=== PATIENT | female | born 1970 | race Caucasian/White ===

== ENCOUNTER 2022-07-05 12:32 | Emergency (ER) | payer OTHER, SELFPAY ==
[2022-07-05 12:40] VITALS: BP 126/83; PULSE 70; RESP 18; TEMP 36.4; O2SAT 99; BMI 30.7
[2022-07-05 15:19] VITALS: BP 116/83; PULSE 65; RESP 16; O2SAT 100
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
--- OUTSIDE RECORDS SUMMARY | 2022-07-05 15:52 | XMS_ITS | Encounter Summary ---
:1970 Author Organization [employer] Address [address], [place] [address] Care Team Providers Name Role Phone Pcp, Pt Declines MD Primary Care Provider Reason for Visit Procedure/Equipment (Routine) - Incomplete Specialty Diagnoses / Procedures Referred By Contact Refer red To Contact Diagnoses Adhesive capsulitis of left shoulder Lan Rojas PA-C Procedures XR Shoulder Lt 2+ Views [address] [facility] [place] [address] Referral ID Status Reason Start Date Expiration Date Visits V isits Requested Authorized [id number] Incomplete 03/02/2018 06/01/2019 1 1 Encounter Details Date Type Department Care Team Description 03/02/2018 Imaging [facility] Lan Rojas PA-C Chronic left shoulder [address] [facility] [facility] [address] [place] [address] [place] [address] [phone] (Wo rk) Social History Tobacco Use Types Packs/Day Years Used Date Smoking Tobacco: Former Smokeless Tobacco: Never Comments: Quit smokin yrs Alcohol Use Standard Drinks/Week Comments Yes 0 (1 standard drink = 0.6 oz pure alcoho l) social Sex Assigned at Date Recorded Not on file documented as of this encounter Plan of Treatment Not on filedocumented as of this encounter Procedures Procedure Name Priority Date/Time Associated Diagnosis Comme nts XR SHOULDER LT 2+ Routine 03/02/2018 10:26 AM Chronic left Res ults for this VIEWS CDT shoulder pain procedure are in the results section. documented in this encounter Results XR Shoulder Lt 2+ Views (03/02/2018 10:26 AM CDT) Anatomical Region Laterality Modality Upper Extremity, Shoulder Digital Radiog parvez Specimen (Source) Anatomical Collection Method Collection Time Re ceived Time Location / / Volume Laterality 03/02/2018 10:18 AM CDT Narrative 03/02/2018 11:30 AM CDT COMPARISON: ??None. FINDINGS: ??Bony structures appear unrem arkable. ??Joint spaces are within normal limits. ??There is no dislocation or significant degenerative change. Probable bone islands in the glenoid and humeral head. Procedure Note Tavo Agee MD - 03/02/2018Forma tting of this note might be different from the original. COMPARISON: None. FINDINGS: Bony structures appear unremar kable. Joint spaces are within normal limits. There is no dislocation or significant degenerative change. Probable bone islands in the glenoid and humeral head. Lan REAGAN GD documented in this encounter Visit Diagnoses Diagnosis Chronic left shoulder pain Pain in joint, shoulder region documented in this encounter Care Teams Financial Reporting Advisor Relationship Specialty Start Date End Date Pcp, Praveen Sigala MD PCP - General 04/15/14 [place] [address] documented as of this encounter
--- OUTSIDE RECORDS SUMMARY | 2022-07-05 15:52 | XMS_ITS | Encounter Summary ---
:1970 Author Organization [facility] Address [address] [address] Care Team Providers Name Role Phone PcpPraveen MD Primary Care Provider Encounter Details Date Type Department Care Team Description 01/21/2021 Immunization [place] Cov[facility] Encounter for Vaccine Program administration of vaccine [id number] [address] (Primary Dx) [place], [place] [address] Social History Tobacco Use Types Packs/Day Years Used Date Smoking Tobacco: Former Smokeless Tobacco: Never Comments: Quit smokin yrs Alcohol Use Standard Drinks/Week Comments Yes 0 (1 standard drink = 0.6 oz pure alcoho l) social Sex Assigned at Date Recorded Not on file documented as of this encounter Plan of Treatment Not on filedocumented as of this encounter Visit Diagnoses Diagnosis Encounter for administration of vaccine - Primary documented in this encounter Care Teams Prototype Fabricator Relationship Specialty Start Date End Date Praveen Isabel MD PCP - General 04/15/14 [place] [address] documented as of this encounter
--- OUTSIDE RECORDS SUMMARY | 2022-07-05 15:52 | XMS_ITS | Encounter Summary ---
:1970 Author Organization [employer] Address [address] [address] Care Team Providers Name Role Phone Pcp, Pt Declines MD Primary Care Provider Reason for Referral Procedure/Equipment (Routine) - Incomplete Specialty Diagnoses / Procedures Referred By Contact Refer red To Contact Diagnoses Adhesive capsulitis of left shoulder Lan Rojas PA-C Procedures [place] Injection Shoulder Lt [address] [facility] [address] [place] [address] Referral ID Status Reason Start Date Expiration Date Visits V isits Requested Authorized [id number] Incomplete 03/02/2018 06/01/2019 1 1 herapies (Routine) - Closed Specialty Diagnoses / Procedures Referred By Contact Refer red To Contact Diagnoses Adhesive capsulitis of left shoulder Lan Rojas PA-C [address] [facility] [address] [place] [address] Referral ID Status Reason Start Date Expiration Date Visits Requ ested Visits Authorized [id number] Closed 03/02/2018 05/01/2018 1 1 Scheduling Instructions Your provider has recommended an appoint ment with [facility]. You may call [phone] to schedule your appoi ntment. If you do not schedule an appointment within the next 1 to 3 business days, we will call you to help arrange your appointment. We suggest you call your he [employer] company about your coverage and benefits for this appointment. Procedure/Equipment (Routine) - Incomplete Specialty Diagnoses / Procedures Referred By Contact Refer red To Contact Diagnoses Adhesive capsulitis of left shoulder Lan Rojas PA-C Procedures XR Shoulder Lt 2+ Views [address] [facility] [place] [address] Referral ID Status Reason Start Date Expiration Date Visits V isits Requested Authorized [id number] Incomplete 03/02/2018 06/01/2019 1 1 Reason for Visit Reason Comments SHOULDER PAIN L shoulder pain Encounter Details Date Type Department Care Team Description 03/02/2018 Office Visit [facility] Rojas, Adhesive capsulitis [facility] of left shoulder [address] [facility] (Primary Dx) [place] [address] [address] [place] [phone] (Wo rk) Social History Tobacco Use Types Packs/Day Years Used Date Smoking Tobacco: Former Smokeless Tobacco: Never Comments: Quit smokin yrs Alcohol Use Standard Drinks/Week Comments Yes 0 (1 standard drink = 0.6 oz pure alcoho l) social Sex Assigned at Date Recorded Not on file documented as of this encounter Last Filed Vital Signs Vital Sign Reading Time Taken Comments Blood Pressure - - Pulse - - Temperature - - Respiratory Rate - - Oxygen Saturation - - Inhaled Oxygen Concentration - - Weight 77.1 kg (170 lb) 03/02/2018 9:53 AM CDT Height 157.5 cm (5' 2) 03/02/2018 9:53 AM CDT Body Mass Index 31.09 03/02/2018 9:53 AM CDT documented in this encounter Progress Notes Lan Rojas PA-C - 03/02/2018 9:30 AM CDT [facility] [place] Consultation 03/02/2018 Chief Complaint: Left Shoulder Pain History of Present Illness: Mamta Pickett is a right hand dominant 47 y.o. female with a history of thyroid condition who presents for evaluation of left shoulder pain. The patient notes her pain began without precipitating injury or trauma over nine months ago. Reports the severity of pain has gradually worsened approximately the two months ago. No history of surgery or injury. Since this time, she localizes her pain over the superolateral aspect of left shoulder. Describes intermittent numbness along dorsum of forearm with extension into all fingers except the thumb. She has difficulty with gripping motions secondary topain and weakness. Internal rotation, overhead motions, daily cares and abduction aggravates her pain. Range of motion causes clicking within shoulder. Sleep is disrupted due to pain. She has not previously attempted any treatment. Concerned since the pain limits her ability to partake in activities of daily living. No other concerns were voiced. Allergies: Review of patient's allergies indicates no known allergies. Current Medications: The patient has a current medication list which includes the following prescription(s): Celexa. Past Medical History: The patient has a past medical history of Thyroid condition, Anxiety and Depression. Past Surgical History: The patient has a past surgical history that includes Spine surgery (2009) and Foot surgery. Family History: The patient's family history includes breast cancer in her mother and grandparents. 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 with three children. Nonsmoker. No history of substance/drug use. Drinks alcohol occasionally. Endorses exercise daily by walking. Always wears a seatbelt. The General Medical History Form dated 03/02/2018 was updated and reviewed with the patient; this is located in [facility] in [facility]. Review of Systems: Positive for left shoulder pain, sinus infections, anxiety and chronic low back pain. No history of other heart, lung, liver, GI, or renal diseases, cancers, diabetes mellitus, or arthritis. Physical Exam: General: The patient is in no acute distress. Neuro: Answers questions appropriately. Alert and oriented x 3. Skin: Skin is cool to touch without erythema, ecchymosis, or lesions. Left Shoulder: Tight posterior capsule. Forward flexion to 140 degrees. Tight external rotation. Pain is not noted with exercise isolating supra and infraspinatus. Negative Spurling's test. Rotator cuff intact. Full range of motion of cervical spine, elbow, wrist, and hand. Neurovascularly intact dista lly. Good capillary refill. 2+ radial pulse. This is compared bilaterally. Imaging: Radiographs of the left shoulder - 2+ views (03/02/18): No evidence of obvious acute bony abnormalities. I ordered and independently reviewed and interpreted the imaging studies above; the results were discussed with the patient. Assessment: Diagnosis and Associated Orders ICD-10-CM 1. Adhesive capsulitis of left shoulder M75.02 XR Shoulder Lt 2+ Views Plan: Educated the patient regarding her condition and management. I discussed with the patient, in detail, the different treatment options available to them including conservative management (rest, ice, oral pain medication, and activity modification) and formal physical therapy per adhesive capsulitis protocol. Given her sleep is significantly disrupted, recommended the patient schedule a fluoroscopically-guided left shoulder glenohumeral corticosteroid injection. Risks and benefits for each treatment option were discussed. At this time, the patient elects to proceed with this plan. Provided patient with a referral for formal physical therapy. She will follow-up in two month for recheck. All questionswere answered. Scribe Disclosure: IMayi, am serving as a scribe to document services personally performed by Lan Rojas PA-C at this visit, based upon the provider's statements to me. All documentation has been reviewed by the aforementioned provider prior to being entered into the official medical record. Portions of this medical record were completed by a scribe. UPON MY REVIEW AND AUTHENTICATION BY ELECTRONIC SIGNATURE, this confirms (a) I performed the applicable clinical services, and (b) the recordis accurate. Lan Rojas PA-C documented in this encounter Plan of Treatment Scheduled Referrals Name Type Priority Associated Diagnoses Order S chedule Physical Therapy Referral Routine Adhesive capsulitis of l eft Ordered: 03/02/2018 shoulder documented as of this encounter Results FL Injection Shoulder Lt (03/15/2018 11:20 AM CDT) Anatomical Region Laterality Modality Upper Extremity, Shoulder Radiographic I maging Specimen (Source) Anatomical Collection Method Collection Time Re ceived Time Location / / Volume Laterality 03/15/2018 11:06 AM CDT Narrative 03/15/2018 11:21 AM CDT FINDINGS: The procedure, goals, risks and benefits of the procedure were discussed with the patient, who gave full written and verbal consent to proceed. The location of the procedure was confirmed, the skin initialed, and pause for cause per formed. Using sterile technique, local anesthesia and fluoroscopic guidance a 22 gauge needle was advanced into the left glenohumeral joint. Intraarticular locati on of the needle tip was confirmed with the injection of 1 mL of Isovue. Subsequently, 40 mg of Kenalog, and 5 mL ropivacaine 0.5% was administered without complication. The patient rated their pain as a 5/10 p rior to the injection, and 1/10 immediately following the injection. Procedure Note Lima Bowie PA-C - 03/15/2018Fo rmatting of this note might be different from the original. FINDINGS: The procedure, goals, risks an d benefits of the procedure were discussed with the patient, who gave full written and verbal consent to proceed. The location of the procedure was confirmed, the skin initialed, and pause for cause performed. Using juan rile technique, local anesthesia and fluoroscopic guidance a 22 gauge needle was advanced into the left glenohumeral joint. Intraarticular location of the needle tip was confirmed with the injection of 1 mL of Isovue. Subsequently, 40 mg of Kenalog, and 5 mL ropivacaine 0.5% was administered without complication. The patient rated their pain as a 5/10 p rior to the injection, and 1/10 immediately following the injection. Lan Rojas PA-C RAD FL XR Shoulder Lt 2+ Views (03/02/2018 10:26 [...] in the glenoid and humeral head. Lan AGUIRRE documented in this encounter Visit Diagnoses Diagnosis Adhesive capsulitis of left shoulder - P rimary Adhesive capsulitis of shoulder Chronic left shoulder pain Pain in joint, shoulder region Adhesive capsulitis of left shoulder Adhesive capsulitis of shoulder documented in this encounter Care Teams Waistband Setter Lockstitch Relationship Specialty Start Date End Date Pcp, Praveen Sigala MD PCP - General 04/15/14 [place] [address] documented as of this encounter
--- OUTSIDE RECORDS SUMMARY | 2022-07-05 15:52 | XMS_ITS | Clinical Summary ---
:[address] [facility] Address [address], [place] [address] Care Team Providers Name Role Phone Pcp, Pt Declines MD Primary Care Provider Source Comments You are receiving this document as you are listed as the primary care provider,follow-up provider, or the patient has been referred to you for consultation.This is in compliance with the Medicare and Medicaid EHR Incentive Program,which states Providers who transition their patient to another setting of careor provider of care or refers their patient to another provider of care shouldprovide summarycare record for each transition of care or referral. [facility] Allergies No known active allergies Medications Medication Sig Dispensed Refills Start Date End Date Status citalopram (AKA CELEXA) Take 10 mg by 0 04/16/2014 Active 10 MG tablet mouth daily (every 24 hours). loratadine (AKA CLARITIN) Take 10 mg by 0 06/11/2014 Active 10 MG tablet mouth daily (every 24 hours). cholecalciferol (VITAMIN Take 1,000 0 06/26/2014 Active D3) 1000 UNITS tablet Units by mouth daily (every 24 hours). ibuprofen (MOTRIN) 200 MG Take 200-400 mg 0 Active tablet by mouth every 4 hours as needed for Pain. Active Problems Problem Noted Date Hypothyroidism 07/03/2014 Resolved Problems Problem Noted Date Resolved Date Bronchitis 07/03/2014 01/01/2015 Immunizations Name Administration Dates Next Due Moderna (Spikevax) COVID-19, 12+ Yrs 01/21/2021, 12/24/2020 Social History Tobacco Use Types Packs/Day Years Used Date Smoking Tobacco: Former Smokeless Tobacco: Never Comments: Quit smokin yrs Alcohol Use Standard Drinks/Week Comments Yes 0 (1 standard drink = 0.6 oz pure alcoho l) social Sex Assigned at Date Recorded Not on file Last Filed Vital Signs Vital Sign Reading Time Taken Comments Blood Pressure - - Pulse - - Temperature - - Respiratory Rate - - Oxygen Saturation - - Inhaled Oxygen Concentration - - Weight 77.1 kg (170 lb) 03/02/2018 9:53 AM CDT Height 157.5 cm (5' 2) 03/02/2018 9:53 AM CDT Body Mass Index 31.09 03/02/2018 9:53 AM CDT Plan of Treatment Health Maintenance Due Date Last Done Comments Colon Cancer Screening Plan 1970 Due Hep C Screening (Preventive 1970 Services) HepB (1) 1970 HIV Screening (Preventive 1984 Services) Adult Preventive Visit 1986 Cervical Cancer Screening Due 07/12/2013 07/11/2013 Cholesterol 2013 Mammogram 11/26/2014 11/26/2013 Zoster/Shingles (1 of 2) 2018 DTaP/Tdap/Td (2 - Tdap) 12/10/2018 12/10/2008 COVID-19 Vaccine (3 - Booster 03/18/2021 01/21/2021, for Moderna series) 12/24/2020 Influenza (#1) 2022 06/02/2016, 05/25/2012, 06/02/2011 HepA Aged Out No longer eligib le based on patient's age to complete this to pic Hib Aged Out No longer eligib le based on patient's age to complete this to pic IPV (Polio) Aged Out No longer eligib le based on patient's age to complete this to pic MCV4 Aged Out No longer eligib le based on patient's age to complete this to pic Pneumococcal Aged Out No longer eligib le based on patient's age to complete this to pic Insurance Payer Benefit Plan Subscriber ID Effective Phone Address Typ e / Group Dates [facility] [id number] Effective for C ommercial DENTAL PLAN FULLY all dates INSURED D[employer]AL [employer] SELF [id number] 2012-Prese Commercial INSURED nt [address] (Home) [phone] Violeta Godwin (Work) [id number] Mamta Pickett Personal/Family Self 1970 [address] (Home) [facility] [phone] Violeta GODWIN (Work) [id number] Mamta Pickett Personal/Family Self 1970 [address]) [phone] Violeta Godwin (Work) [id number] Mamta Pickett Personal/Family Self 1970 [address] ([address]) [address] [phone] Violeta Godwin (Work) [phone] Care Teams [employer] School Principal Relationship Specialty Start Date End Date Pcp, Praveen Sigala MD PCP - General 04/15/14 [place] [address]
--- OUTSIDE RECORDS SUMMARY | 2022-07-05 15:52 | XMS_ITS | Encounter Summary ---
:1970 Author Organization [facility] [facility] Address [address], [place] [address] Care Team Providers Name Role Phone Pcp, Pt Declines MD Primary Care Provider Reason for Visit Reason Comments Post Op Exam Encounter Details Date Type Department Care Team Description 08/07/2014 Office Visit [facility] Keven Roblero, Follow -up CENTER DPM examination, [address] [facility] [address] [place] [address] DR following unspecified [place], [place] [address] [place], [place] surgery (Primary Dx) [phone] (Wo rk) Social History Tobacco Use Types Packs/Day Years Used Date Smoking Tobacco: Never Assessed Sex Assigned at Date Recorded Not on file documented as of this encounter Patient Instructions Patient InstructionsAlexys Huynh MA - 08/07/2014 3:[address] Keven Roblero, DPM Podiatric Medicine & Windows Application PackagerLocker Room Attendant, [facility] Treating Inspector: Stephania De Souza Please call Stephania for all administrative questions at [phone] Nurses: Please contact [facility] Nurse Group for all medical questions at [phone] Medication Requests: Prescriptions are not filled on Weekends or on Weekdays after 3:00PM For all medication refills: Request a refill using [facility] [employer] or contact your Pharmacy Thank you for enrolling in MyGoodPoints. Please follow the instructions below to securely access your online medical record. MyGoodPoints allows you to send messages to your doctor, view your test results, renewyour prescriptions, schedule appointments, and more. How Do I Sign Up? 1. In your Internet browser, go to: [email or web address] 2. Click on the Enter Activation Code link under the New User? section. You will see the New Member Sign Up page. 3. Enter your MyGoodPoints Activation Code exactly as it appears below. You will not need to use this code after you???ve completed the sign-up process. If you do not sign up before the expiration date, youmust request a new code. MyGoodPoints Activation Code: [email or web address] Expires: 09/06/2014 3:14 PM 4. Enter your Date of (mm/dd/yyyy), Home Phone Number and Zip Code as indicated, then click Next. You will be taken to the next sign-up page 5. Create a MyGoodPoints ID. This will be your MyGoodPoints login ID and cannot be changed, so think of one that is secure and easy to remember. 6. Create a MyGoodPoints password. You can change your password at any time. 7. Enter your Security Question and Answer. This can be used at a later time if you forget your password. Click Next. 8. Enter your e-mail address. You will receive e-mail notification when new information is availablein MyGoodPoints. 9. Click Sign In. You can now view your medical record. Additional Information If you have questions, you can call [phone] to talk to our MyGoodPoints staff. Remember, MyGoodPoints is NOT to be used for urgent needs. For medical emergencies, dial 911. R REPAIRER documented in this encounter Progress Notes Keven Roblero DPM - 08/07/2014 9:05 PM CST Progress Notes signed by Keven Roblero DPM at 08/11/14 0801 Author: Keven Roblero DPM Service: (none) Author Type: Physician Filed: 08/11/14 0801 Note Time: 08/10/14 7391 Status: Signed Electronics Research Engineer: Keven Roblero DPM (Physician) NAME: SHEKHAR PICKETT MR#: [id number] CSN: [id number] AUTHENTICATING CLINICIAN: Keven Roblero DPM CONFIRM #: [id number] LOC: 711 CLINIC PROGRESS NOTE DATE OF VISIT: 08/07/2014 : 1970 SUBJECTIVE: This is a return clinic visit for this patient who presents today 6 weeks status post excision neuroma left foot. The patient states she is still getting some slight discomfort at the plantar aspect ofthe 3rd intermetatarsal space where the scar is. She also states she has some nerve irritation whereshe gets some numbness and tingling to her left great toe. The patient states that the dressing may have been too tight on her foot. She had irritation to the dorsal bony prominence and she points to her 5th metatarsal base. OBJECTIVE: On physical examination, there is a bit of paresthesia to the dorsum of the left hallux as well as at the 1st webspace. This along the course of the deep peroneal nerve or the innervation of this nerve. There was some discomfort with palpation over the dorsal exostosis 1st tarsometatarsal joint. Tinel's could not be elicited. There is some slight central scabbing of the scar to plantar of the 3rd intermetatarsal space of the left foot. No fluctuance or drainage. The patient does relate that this area did open a bit after surgery and was Steri- Stripped. Patient does also relate some irritation to the 3rd toe if she has been on her feet too much. ASSESSMENT: Six weeks status post excision of neuroma of the left foot, deep peroneal nerve irritation secondaryto dorsal exostosis left foot. PLAN: The patient is healing nicely regarding neuroma, that should continue to improvement and that littlebit of scabbing should certainly resolve itself in the short term. I discussed the nerve irritation of the deep peroneal nerve and this was related to the dorsal exostosis near the base of the 1st metatarsal and 2nd metatarsal as well as some compression from the dressing; this also should resolve with time. The patient may increase ambulatory activities as comfortable. She can do deep massage to herplantar scar as well. I will see the patient p.r.n. JOSIE:CAMILLA C: R:08/08/14 06:33 CONFIRM#:[id number] R REPAIRER documented in this encounter Plan of Treatment Not on filedocumented as of this encounter Visit Diagnoses Diagnosis Follow-up examination, following unspeci fied surgery - Primary documented in this encounter Care Teams Program Analyst Relationship Specialty Start Date End Date Pcp, Praveen Sigala MD PCP - General 04/15/14 [place] [address] documented as of this encounter
--- OUTSIDE RECORDS SUMMARY | 2022-07-05 15:52 | XMS_ITS | Encounter Summary ---
:1970 Author Organization [employer] Address [address], [place] [address] Care Team Providers Name Role Phone PcpPraveen MD Primary Care Provider Reason for Visit Reason Comments Symptoms Encounter Details Date Type Department Care Team Description 06/30/2014 Telephone [facility] Keven Carey, DPVioleta Symptoms [address] [facility] [address] [place] [address] [place] [address] [phone] (Wo rk) Social History Tobacco Use Types Packs/Day Years Used Date Smoking Tobacco: Never Assessed Sex Assigned at Date Recorded Not on file documented as of this encounter Nursing Notes Essence Aguirre RN - 06/30/2014 3:06 PM CDT Patient is S/P Excision of neuroma 3rd IMS left foot on 06/26 she is calling to report she has had cold symptoms since surgery and it is getting worse, making it hard for her to breathe. She has no chest pain. She is calling to ask if she should be seen. Patient instructed to be seen by primary care. documented in this encounter Plan of Treatment Not on filedocumented as of this encounter Visit Diagnoses Not on filedocumented in this encounter Care Teams Welding Pantograph Machine Operator Relationship Specialty Start Date End Date Praveen Isabel MD PCP - General 04/15/14 [place] [address] documented as of this encounter
--- OUTSIDE RECORDS SUMMARY | 2022-07-05 15:52 | XMS_ITS | Encounter Summary ---
:1970 Author Organization [facility] [employer] Address [address], [place] [address] Care Team Providers Name Role Phone Pcp, Pt Declines MD Primary Care Provider Encounter Details Date Type Department Care Team Description 11/18/2019 chalo Dasilva [phone] Social History Tobacco Use Types Packs/Day Years Used Date Smoking Tobacco: Former Smokeless Tobacco: Never Comments: Quit smokin yrs Alcohol Use Standard Drinks/Week Comments Yes 0 (1 standard drink = 0.6 oz pure alcoho l) social Sex Assigned at Date Recorded Not on file documented as of this encounter Progress Notes FAMILY MEDICINECHALO PROVIDER - 11/23/2019 12:00 AM CDT chalo Addendum Treatment Plan Diagnosis Sinusitis with Ear Pain Visit Date November 18, 2019 Addendum Date November 23, 2019 Mamta Pickett Date of : 66 Provider Leslie Garcia, Nurse Practitioner Note From Provider Orlando Oleary, thank you for talking with me! Please review your updated treatment plan carefully and because you are sick and COVID-19 is in the community, you should follow CDC guidelines and remain in home isolation until 7 days have passed from the start of your symptoms AND you have not had a fever for at least 72 hours without fever reducing medicine AND your symptoms have improved. People that youhave been in close contact (including those in your home) should also isolate themselves for 14 dayseven if they don???t have symptoms. Don't forget we're here 27/03, Request a Call Back if you need it. Take care, Leslie Treatment Plan Since you have a bacterial infection, let???s try an antibiotic. I???ve also included a prescriptionnasal steroid to reduce your pain and inflammation. The antibiotic and nasal steroid will work effectively on both your sinus and ear symptoms. I sent your prescriptions to [facility]. I???ve also listed a few self-care tips to reduce inflammation and soothe your symptoms while the antibiotickills the bacteria. If your symptoms don???t improve after 4 days, or if you have questions, please select Help to Request a Call Back and we???ll adjust your treatment for free. Order(s) amoxicillin 500 mg capsule Take 2 capsule three times a day as directed for 7 days Note: Refills: None fluticasone propionate 50 mcg/actuation spray,suspension [place] 2 spray into both nostrils once a day as directed for 30 days Note: Refills: 2 Sent To: [facility] [address] [facility] [address] [place] [address] Treatment Plan Self Care Tip Topics Ease Sinus Inflammation and Ear Pain with Nasal Steroids Inflammation Relief with Ibuprofen What to Expect Our goal is to treat the infection and reduce inflammation in order to promote drainage to ease yoursinus and ear pain. Reducing inflammation will make you feel better quickly. If you follow the recommendations I made in the Treatment section, your symptoms should begin to improve in 4 days of following this treatment plan. If your symptoms haven???t improved after 4 days, select Help to Request a Call Back and we???ll call you back in about an hour to adjust your treatment for free. What to Watch Out For Give us a call immediately if you experience: ??? Vision changes ??? Redness and swelling of the eyes or face ??? Increasing congestion ??? Worsening pain ??? High fevers ??? Persistent or worsening ear pain ??? Bloody or foul smelling ear drainage ??? Skull pain behind your ear ??? Hearing loss ??? Difficulty swallowing My Conditions, Orders, Allergies as of November 23, 2019 Standard condition list Anxiety Current orders fluticasone propionate (fluticasone propionate) amoxicillin (amoxicillin) ofloxacin (ofloxacin) Flonase Allergy Relief (fluticasone propionate) Celexa (citalopram) Allergies No Known Allergies [facility] by [employer] We are an online clinic open 27/03. If you have any questions or comments about this visit, please call or email [email or web address] Electronically signed by Interface, [facility] Notes at 11/23/2019 10:01 AM CDT FAMILY MEDICINECHALO PROVIDER - 11/18/2019 12:00 AM CDT chalo Treatment Plan Diagnosis Swimmer's Ear Visit Date November 18, 2019 Mamtaan Pickett Date of : 66 Provider Janee Solorio, Nurse Practitioner Note From Provider Orlando Oleary,Hope your symptoms resolve quickly for you! Take good care, Sherrell Treatment Plan Since swimmer's ear is a bacterial infection, let's try some antibiotic drops. I sent a prescriptionto [facility]. I've also listed a few of the best ways to soothe your discomfort and some additional self-care tips to get you on the road to feeling better. If your symptoms don't improve after 3 days, or if you have questions, please use the Request a Call Back button and we'll adjust your treatment for free. Order(s) ofloxacin 0.3% drops Instill 10 drop opht once a day as directed for 7 days Note: Instill antibiotic eye drops into affected ear. Refills: None Sent To: [facility] [address] [facility] [address] [place] [address] Treatment Plan Self Care Tip Topics No Swimming Keep Ear Dry While Bathing Ear Devices Topical Antibiotic Pain Relief with Motrin Elevate Your Head Warm Packs What to Expect If you follow the recommendations I made on the Treatment tab, your symptoms should improve in about3 days. If your symptoms don???t improve after 3 days, or if you have questions, please use the Request a Call Back button and we???ll adjust your treatment for free. What to Watch Out For Give us a call if you experience: ??? Loss of hearing ??? Swelling around the outside of the affected ear ??? Increasing drainage ??? Fevers My Conditions, Orders, Allergies as of November 18, 2019 Standard condition list Anxiety Current orders ofloxacin (ofloxacin) Flonase Allergy Relief (fluticasone propionate) Celexa (citalopram) Allergies No Known Allergies [facility] by [employer] We are an online clinic open 27/03. If you have any questions or comments about this visit, please call or email [email or web address] documented in this encounter Plan of Treatment Not on filedocumented as of this encounter Visit Diagnoses Not on filedocumented in this encounter Care Teams Clinical Laboratory Science Professor Relationship Specialty Start Date End Date Pcp, Praveen Sigala MD PCP - General 04/15/14 [place] [address] documented as of this encounter
--- OUTSIDE RECORDS SUMMARY | 2022-07-05 15:52 | XMS_ITS | Encounter Summary ---
:1970 Author Organization [employer] Address [address] [address] Care Team Providers Name Role Phone Pcp, Pt Declines MD Primary Care Provider Reason for Visit Procedure/Equipment (Routine) - Incomplete Specialty Diagnoses / Procedures Referred By Contact Refer red To Contact Diagnoses Adhesive capsulitis of left shoulder Lan Rojas PA-C Procedures [place] Injection Shoulder Lt [address] [facility] [place] [address] Referral ID Status Reason Start Date Expiration Date Visits V isits Requested Authorized [id number] Incomplete 03/02/2018 06/01/2019 1 1 Encounter Details Date Type Department Care Team Description 03/15/2018 Imaging [facility] Lan Rojas PA-C Adhesive capsulitis of [address] [facility] [address] [place] [address] left shoulder [place] [address] [place] [address] [phone] (Wo rk) Social History Tobacco Use Types [...] Name Priority Date/Time Associated Diagnosis Comme nts FL INJECTION Routine 03/15/2018 11:20 AM Adhesive capsulitis R esults for this SHOULDER LT CDT of left shoulder procedure a re in the results section. documented in this encounter Results [place] Injection Shoulder Lt [...] and 1/10 immediately following the injection. Lan REAGAN [place] documented in this encounter Visit Diagnoses Diagnosis Adhesive capsulitis of left shoulder Adhesive capsulitis of shoulder documented in this encounter Administered Medications Inactive Administered Medications - up to 3 most recent administrations Medication Order MAR Action Action Date Dose Rate Site iopamidol (ISOVUE-M 200) 41 % Given 03/15/2018 11:30 AM CDT 2 mL intrathecal injection 2 mL 2 mL, Intra-articular, ONCE, On Johana 03/15/18 at 1130, For 1 dose triamcinolone acetonide (KENALOG-40) 40 MG/ML Given 11:30 AM CDT 40 mg injection 40 mg 40 mg, Intracapsular, ONCE, On Johana 03/15/18 at 1130, For 1 dose documented in this encounter Care Teams Traffic Enumerator Relationship Specialty Start Date End Date Pcp, Praveen Sigala MD PCP - General 04/15/14 [place] [address] documented as of this encounter
--- OUTSIDE RECORDS SUMMARY | 2022-07-05 15:52 | XMS_ITS | Encounter Summary ---
:1970 Author Organization [employer] Address [address], [place] [address] Care Team Providers Name Role Phone Pcp, Pt Declines MD Primary Care Provider Encounter Details Date Type Department Care Team Description 06/26/2014 Hospital Encounter [facility] [address] [facility] [place] [address] Social History Tobacco Use Types Packs/Day Years Used Date Smoking Tobacco: Never Assessed Sex Assigned at Date Recorded Not on file documented as of this encounter Medications at Time of Discharge Medication Sig Dispensed Refills Start Date End Date cholecalciferol (VITAMIN Take 1,000 Units 0 06/26 D3) 1000 UNITS tablet by mouth daily (every 24 hours). citalopram (AKA CELEXA) 10 Take 10 mg by 0 2013 MG tablet mouth daily (every 24 hours). loratadine (AKA CLARITIN) Take 10 mg by 0 014 10 MG tablet mouth daily (every 24 hours). oxyCODONE (aka ROXICODONE) Take 1 tablet by 40 tablet 0 08/07/2014 tablet mouth every 4 hours as needed for Pain. cholecalciferol (aka Take 1,000 Units 0 4 03/11/2016 VITAMIN D3) tablet TABS by mouth daily (every 24 hours). ferrous gluconate (FERGON) Take 36 mg by 0 201303/02/2018 324 (37.5 FE) MG tablet mouth daily (every 24 hours). ferrous gluconate tablet Take 36 mg by 0 06/26/20 14 03/11/2016 mouth daily (every 24 hours). levothyroxine (AKA Take 25 mcg by 0 04/16/2014 SYNTHROID) 25 MCG tablet mouth daily (every 24 hours). documented as of this encounter Plan of Treatment Not on filedocumented as of this encounter Visit Diagnoses Not on filedocumented in this encounter Care Teams Distance Learning Technician Relationship Specialty Start Date End Date Pcp, Praveen Sigala MD PCP - General 04/15/14 [place] [address] documented as of this encounter
--- OUTSIDE RECORDS SUMMARY | 2022-07-05 15:52 | XMS_ITS | Encounter Summary ---
:1970 Author Organization [employer] Address [address], [place] [address] Care Team Providers Name Role Phone Pcp, Pt Declines MD Primary Care Provider Reason for Visit Reason Comments Post-Op Check Encounter Details Date Type Department Care Team Description 07/03/2014 Office Visit [facility] [place] [facility] [facility] (Primary C[facility] Guzman Long, Santi) [address] [place], [place] [address] [place] [address] [place], [place] [id number] Social History Tobacco Use Types Packs/Day Years Used Date Smoking Tobacco: Never Assessed Sex Assigned at Date Recorded Not on file documented as of this encounter Patient Instructions Patient InstructionsSantaana Guzman Elise [facility] - 07/03/2014 10:[address] Keven Roblero, DPM Podiatric Medicine & Lead Java Software EngineerFolded Towel Machine Operator, [facility] Public Health Outreach Worker: Stephania De Souza Please call Stephania for all administrative questions at [phone] Nurses: Please contact [facility] Nurse Group for all medical questions at [phone] Medication Requests: Prescriptions are not filled on Weekends or on Weekdays after 3:00PM For all medication refills: Request a refill using MyChart or contact your Pharmacy CONTINUE NO WEIGHT BEARING USE THE SURGICAL SHOE EXCEPT FOR HYGIENE. NEXT TIME GO IN CAM BOOT. BACK IN 1 WEEKS TO REMOVE STITCHES. BACK TO CLINIC IN [address] ROBLERO documented in this encounter Progress Notes Guzman Caicedo OPA-C - 07/03/2014 11:14 AM CDT SKYLER Cobb. Dorothea Cisneros PH: [phone] Guzman Caicedo OPA-C - 07/03/2014 11:13 AM CDT Progress Notes signed by JAIRO Coronado at 07/04/14919 Author: JAIRO Coronado Service: (none) Author Type: ORTHOPAEDIC HIGH SCHOOL COUNSELOR, CERTIFIED Filed: 07/04/14919 Note Time: 07/03/141702 Status: Signed Beck Tender: JAIRO Coronado (ORTHOPAEDIC HIGH SCHOOL COUNSELOR, CERTIFIED) NAME: SHEKHAR PICKETT MR#: [id number] CSN: [id number] AUTHENTICATING CLINICIAN: SANDRA Coronado CONFIRM #: [id number] LOC: 711 CLINIC PROGRESS NOTE DATE OF VISIT: 07/03/2014 : 1970 DATE OF SURGERY: 06/26/2014 PREOPERATIVE DIAGNOSIS: Left foot neuroma, 3rd intermetatarsal space. SURGICAL PROCEDURE: Excision of the neuroma, left 3rd intermetatarsal space. 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 The patient is doing well. She has been using the crutches and the surgical shoe. The patient complains about different pains on the foot. At the same time she complains about numbness and tingling on the toes. The patient denies fever, chills, sweats, numbness or tingling in the extremity operated on. The patient complains about pain that is rated 2/10 when resting and 5/10 at the end of the day. PHYSICAL EXAM: DRESSINGS: Surgical shoe removed, dressings came out with a scant amount of dry blood. NEUROVASCULAR EXAM: Sural, saphenous, and plantar nerve distribution present and normal, with DPN and SPN area down withhypoesthesia in an area of 9 cm long from the tiptoes proximally, and 4 cm width. There is a pressure sore over the navicular area due to the dressings. RANGE OF MOTION: Ankle plantarflexion, dorsiflexion, inversion and eversion present and normal. Muscle strength 5/5. The flexion/extension of the toes is fine and present with muscle strength 5/5. Homans' test negative. Capillary refill 1 second. Dorsalis pedis and posterior tibialis pulses present and normal. IMPRESSION: One week out of surgery and doing well, except for the pressure point over the navicular area with 1.5 cm diameter giving some neurapraxia on the superficial and deep peroneal nerve distribution. PLAN: Wound: Cleaned up, new light dressings were put back in position. The pressure sore is going to be massagedtwice a day 5 minutes with vitamin E. Weightbearing: No weightbearing. Brace: Surgical shoe, and next time we will give her a Cam boot that she will keep for 2 more weeks. Thereafter, the patient will start using a regular comfortable shoe. PT: Not indicated at this moment. Followup: Be back in a week to remove the stitches, and in [address] Roblero for a further evaluation. HS:MEDQ C: R:07/03/14 11:25 CONFIRM#:[id number] documented in this encounter Plan of Treatment Not on filedocumented as of this encounter Visit Diagnoses Diagnosis Postop check - Primary Follow-up examination, following unspeci fied surgery documented in this encounter Care Teams Manager Clinical Informatics Relationship Specialty Start Date End Date Pcp, Pt MD Jovon PCP - General 04/15/14 [place] [address] documented as of this encounter
--- OUTSIDE RECORDS SUMMARY | 2022-07-05 15:52 | XMS_ITS | Encounter Summary ---
:1970 Author Organization [employer] Address [address], [place] [address] Care Team Providers Name Role Phone PcpPraveen MD Primary Care Provider Encounter Details Date Type Department Care Team Description 06/26/2014 Office Visit [facility] Surgery, elective [address] [place], [place] [address] Social History Tobacco Use Types Packs/Day Years Used Date Smoking Tobacco: Never Assessed Sex Assigned at Date Recorded Not on file documented as of this encounter Plan of Treatment Not on filedocumented as of this encounter Procedures Procedure Name Priority Date/Time Associated Diagnosis Comme nts MARY INLIGHT CAMERA Routine 06/26/2014 9:38 AM CDT Surgery, vern ctive IMAGES documented in this encounter Results MARY Inlight Camera Images (06/26/2014 9:38 AM CDT) Anatomical Region Laterality Modality Other Specimen (Source) Anatomical Location Collection Method / Collectio n Time Received Time / Laterality Volume Keven Roblero DPM RAD NON-REPORTABLES documented in this encounter Visit Diagnoses Diagnosis Surgery, elective Unspecified elective surgery for purpose s other than remedying health states documented in this encounter Care Teams Sex Worker Or Escort Relationship Specialty Start Date End Date Praveen Isabel MD PCP - General 04/15/14 [place] [address] documented as of this encounter
--- OUTSIDE RECORDS SUMMARY | 2022-07-05 15:52 | XMS_ITS | Encounter Summary ---
:1970 Author Organization [facility] Address [address], [place] [address] Care Team Providers Name Role Phone PcpPraveen MD Primary Care Provider Encounter Details Date Type Department Care Team Description 06/11/2014 Orders Only [facility] POOJA Keven Carey, DPVioleta Neuroma of foot [address] [place] [address] [address] [place] [address] [place] [address] [phone] (Wo rk) Social History Tobacco Use Types Packs/Day Years Used Date Smoking Tobacco: Never Assessed Sex Assigned at Date Recorded Not on file documented as of this encounter Plan of Treatment Not on filedocumented as of this encounter Visit Diagnoses Diagnosis Neuroma of foot Other benign neoplasm of connective and other soft tissue of lower limb, including hip documented in this encounter Care Teams Orthotic And Prosthetic Technician Relationship Specialty Start Date End Date Pcp Pt MD Jovon PCP - General 04/15/14 [place] [address] documented as of this encounter
--- OUTSIDE RECORDS SUMMARY | 2022-07-05 15:52 | XMS_ITS | Encounter Summary ---
:1970 Author Organization [facility] Address [address], [place] [address] Care Team Providers Name Role Phone Pcp, Pt Declines MD Primary Care Provider Encounter Details Date Type Department Care Team Description 11/30/2018 chalo Dasilva [phone] Social History Tobacco Use Types Packs/Day Years Used Date Smoking Tobacco: Former Smokeless Tobacco: Never Comments: Quit smokin yrs Alcohol Use Standard Drinks/Week Comments Yes 0 (1 standard drink = 0.6 oz pure alcoho l) social Sex Assigned at Date Recorded Not on file documented as of this encounter Progress Notes FAMILY MEDICINECHALO PROVIDER - 12/02/2018 12:00 AM CDT chalo Addendum Treatment Plan Diagnosis Sinusitis Visit Date November 30, 2018 Addendum Date December 02, 2018 Mamta Pickett Date of : 66 Provider Millicent Bueno, Nurse Practitioner Note From Provider Glen Oleary, thanks for choosing [facility] today and speaking to me over the phone. Request a Call Back with any questions or concerns. We are always open! Take careMillicent Treatment Plan Since you have a bacterial infection, let???s try an antibiotic. I???ve also included an antifungal medication in case you develop a yeast infection. I sent your prescriptions to [facility] [address] [facility]. I???ve also listed a few of the best ways to soothe your discomfort. If your symptoms don't improve after 4 days, or if you have questions, select Help to Request a Call Back and we'll adjust your treatment for free. Order(s) amoxicillin-pot clavulanate 875-125 mg tablet Take 1 tablet by mouth twice a day for 7 days Note: Refills: None fluconazole 150 mg tablet Take 1 tablet by mouth single dose for 1 day Note: Refills: 1 Sent To: [facility] [address] [place] [address] Treatment Plan Self Care Tip Topics Inflammation Relief with Ibuprofen Why not a Z-Dwain? Avoid Decongestants and Antihistamines Warm Packs Steam Therapy Humidify Irrigate Your Sinuses Yeast Infection Prescription What to Expect Our goal is to treat the infection and to reduce the inflammation of your sinus tissues to promote drainage. This will make you feel better quickly. If you follow the recommendations I made on the Treatment tab, your symptoms should begin to improve in 4 days of following this treatment plan. If your symptoms haven???t improved after 4 days, select Help to Request a Call Back and we???ll call you back in about 30 minutes to adjust your treatment for free. What to Watch Out For Give us a call immediately if you experience: ??? Vision changes ??? Redness and swelling of the eyes or face ??? Increasing congestion ??? Worsening pain ??? High fevers My Conditions, Orders, Allergies as of December 02, 2018 Standard condition list None Current orders fluconazole (fluconazole) amoxicillin-pot clavulanate (amoxicillin-pot clavulanate) Flonase Allergy Relief (fluticasone propionate) Celexa (citalopram) Allergies No Known Allergies [employer] Information [facility] [employer] [employer] We are an online clinic open 27/03. If you have any questions or comments about this visit, please call or email [email or web address]. FAMILY MEDICINECHALO PROVIDER - 11/30/2018 12:00 AM CDT [facility] Treatment Plan Diagnosis Viral Sinusitis Visit Date November 30, 2018 Mamta Pickett Date of : 66 Provider Gela Caicedo, Physician Field Sales Representative Note From Provider Orlando Oleary, thank you for using [facility]. I have prepared a treatment plan that will have you feeling better soon. Please take a moment to review the recommendations and if you have further concerns orquestions please request a callback. Emeka GLASGOW Treatment Plan Let???s get you feeling better in the next 24 hours by using a prescription nasal steroid and an effective blend of gtgn-epq-dyjovzm products to kick this viral infection. We???ll work to reduce your pain and inflammation, help drain that irritating mucus and prevent this from worsening. Because this infection is caused by a virus, an antibiotic won???t be effective at helping your pain or treating the virus. I sent your nasal steroid prescription to [facility]. This medication is also available wdyr-heg-oinupot, so you may want to check with your pharmacy to see which option is more cost-friendly. If your symptoms don???t improve after 24 hours, or if you have questions, select Help to Request a Call Back and we???ll adjust your treatment for free. Order(s) Flonase Allergy Relief 50 mcg/actuation spray,suspension Herald 2 spray into both nostrils once a day as needed for 30 days Note: Start with 2 sprays in both nostrils daily for 1 week, then 1-2 sprays daily. Refills: 11 Sent To: [facility] [address] [place] [address] Treatment Plan Self Care Tip Topics Inflammation Relief with Ibuprofen Relieve Facial Pressure with Nasal Steroids How to Take Your Nasal Steroid Cough Expectorant Cough Suppressant Ear Pain Irrigate Your Sinuses What to Expect Let???s work on reducing your pain and inflammation, as well as promoting drainage, to help kick theviral infection and get you feeling more like yourself. Follow the recommendations on the Treatment tab and your symptoms should begin to improve over the next 24 hours. If your symptoms haven???t impro susy after 1 day, select Help to Request a Callback and we???ll adjust your treatment for free. What to Watch Out For Give us a call immediately if you experience: ??? Vision changes ??? Redness occurring in the face ??? Increasing congestion ??? Worsening pain ??? High fevers My Conditions, Orders, Allergies as of November 30, 2018 Standard condition list None Current orders Flonase Allergy Relief (fluticasone propionate) Celexa (citalopram) Allergies None [facility] Information [facility] [employer] We are an online clinic open 27/03. If you have any questions or comments about this visit, please call or email [email or web address]. documented in this encounter Plan of Treatment Not on filedocumented as of this encounter Visit Diagnoses Not on filedocumented in this encounter Care Teams Ore Trimmer Relationship Specialty Start Date End Date Pcp, Praveen Sigala MD PCP - General 04/15/14 [place] [address] documented as of this encounter
--- OUTSIDE RECORDS SUMMARY | 2022-07-05 15:52 | XMS_ITS | Encounter Summary ---
:1970 Author Organization [facility] Address [address] [place] [address] Care Team Providers Name Role Phone PcpPraveen MD Primary Care Provider Reason for Visit Reason Comments Dental Conversion Legacy EDR to Ragland convers ion Encounter Details Date Type Department Care Team Description 02/09/2017 Dental Conversion Dental Business Interface, [facility] Dental Conversion [address] [place] [address] Social History Tobacco Use Types Packs/Day Years Used Date Smoking Tobacco: Former Comments: Quit smokin yrs Alcohol Use Standard Drinks/Week Comments Yes 0 (1 standard drink = 0.6 oz pure alcoho l) social Sex Assigned at Date Recorded Not on file documented as of this encounter Plan of Treatment Not on filedocumented as of this encounter Visit Diagnoses Not on filedocumented in this encounter Care Teams Sew Out Operator Relationship Specialty Start Date End Date PcpPraveen MD PCP - General 04/15/14 [place] [address] documented as of this encounter
--- OUTSIDE RECORDS SUMMARY | 2022-07-05 15:52 | XMS_ITS | Encounter Summary ---
:1970 Author Organization [facility] Address [address], [place] [address] Care Team Providers Name Role Phone Pcp, Pt Declines MD Primary Care Provider Reason for Visit Reason Comments Post Op Exam Encounter Details Date Type Department Care Team Description 09/24/2014 Office Visit [facility] Keven Roblero, Follow -up CENTER DPVioleta examination, [address] [facility] [address] [place] [address] DR following unspecified [place], [place] [address] [place], [place] surgery (Primary Dx) [phone] (Wo rk) Social History Tobacco Use Types Packs/Day Years Used Date Smoking Tobacco: Never Assessed Sex Assigned at Date Recorded Not on file documented as of this encounter Progress Notes Keven Roblero DPM - 09/24/2014 1:10 PM CST Progress Notes signed by Keven Roblero DPM at 09/28/141857 Author: Keven Roblero DPM Service: (none) Author Type: Physician Filed: 09/28/141857 Note Time: 09/25/14 1102 Status: Signed Field Agronomist: Keven Roblero DPM (Physician) NAME: SHEKHAR PICKETT MR#: [id number] CSN: [id number] AUTHENTICATING CLINICIAN: Keven Roblero DPM CONFIRM #: [id number] LOC: 711 CLINIC PROGRESS NOTE DATE OF VISIT: 09/24/2014 : 1970 SUBJECTIVE: This is a return clinic visit for this patient who is now approximately 13 weeks status post excision neuroma 3rd IMS, left foot. The patient states she is having persistent pain at the proximal extentof the incision she points to. Patient states she noticed this early after surgery as well. She willget a burning discomfort. It does make it difficult for her to increase her ambulatory activities. OBJECTIVE: Upon physical examination, the incision line is well healed. No significant hypertrophy noted. Thereis point tenderness at the proximal extent of the incision. Tinel's is not elicited. There is some minor pain on palpation within the 3rd intermetatarsal space distally. ASSESSMENT: Thirteen weeks status post excision neuroma 3rd IMS left foot with continued pain. PLAN: Informed the patient that more than likely this may represent some nerve entrapment at the proximal extent of the scar. I recommended a corticosteroid injection to this site. This may be early stump neuroma, though would be quite atypical and unusual with the plantar approach. After verbal consent and alcohol and Betadine prep, approximately 1 mL of 0.5% Sensorcaine plain mixture with 10 mg Kenalog was deeply infiltrated at the site of point tenderness to the 3rd IMS, left foot. Patient will monitor relief. I did discuss the potential for a steroid flare and how to treat this. I will see the patient in 3-4 weeks if symptoms are not improved. Consider physical therapy modalities at that time. Also, I did discuss use of an off the shelf insert with metatarsal pad to try to float the area as well to give some relief in discomfort. JWM:MARIKA C: R:09/24/14 15:22 CONFIRM#:[id number] E MINISTER documented in this encounter Plan of Treatment Not on filedocumented as of this encounter Visit Diagnoses Diagnosis Follow-up examination, following unspeci fied surgery - Primary documented in this encounter Care Teams Jewel Sorter Relationship Specialty Start Date End Date PcpPraveen MD PCP - General 04/15/14 [place] [address] documented as of this encounter
--- OUTSIDE RECORDS SUMMARY | 2022-07-05 15:52 | XMS_ITS | Encounter Summary ---
:1970 Author Organization [facility] Address [address] [address] Care Team Providers Name Role Phone PcpPraveen MD Primary Care Provider Encounter Details Date Type Department Care Team Description 06/25/2014 Notes/Orders [facility] Annika, Keven W, Jenifer y, elective CENTER DPM (Primary Dx) [address] [place] [address] TALA Soni [address] [place], [place] [phone] (Wo rk) Social History Tobacco Use Types Packs/Day Years Used Date Smoking Tobacco: Never Assessed Sex Assigned at Date Recorded Not on file documented as of this encounter Plan of Treatment Not on filedocumented as of this encounter Visit Diagnoses Diagnosis Surgery, elective - Primary Unspecified elective surgery for purpose s other than remedying health states documented in this encounter Care Teams Binder Technician Relationship Specialty Start Date End Date Praveen Isabel MD PCP - General 04/15/14 [place] [address] documented as of this encounter
--- OUTSIDE RECORDS SUMMARY | 2022-07-05 15:52 | XMS_ITS | Encounter Summary ---
:1970 Author Organization [facility] Address [address], [place] [address] Care Team Providers Name Role Phone Pcp, Pt Declines MD Primary Care Provider Reason for Visit Reason Comments Post-Op Check Encounter Details Date Type Department Care Team Description 07/10/2014 Office Visit [facility] [place] [facility] (Primary CENTER Guzman Long, Santi) [address] [place], [place] [address] [place] [address] [place], [place] [id number] Social History Tobacco Use Types Packs/Day Years Used Date Smoking Tobacco: Never Assessed Sex Assigned at Date Recorded Not on file documented as of this encounter Patient Instructions Patient InstructionsSantaaGuzman Elaine OPA-C - 07/10/2014 4:[address] Keven Roblero, DPM Podiatric Medicine & Form StripperCareer Based Intervention Coordinator, [facility] Skidder Loader: Stephania De Souza Please call Stephania for all administrative questions at [phone] Nurses: Please contact [facility] Nurse Group for all medical questions at [phone] Medication Requests: Prescriptions are not filled on Weekends or on Weekdays after 3:00PM For all medication refills: Request a refill using MyChart or contact your Pharmacy USE CAM BOOT FOR 2 WEEKS MORE. USE IT EXCEPT FOR HYGIENE. AFTER 2 WEEKS YOU MAY USE COMFORTABLE REGULAR SHOE. BACK TO CLINIC IN [address] ROBLERO E CHANGER documented in this encounter Progress Notes Guzman Caicedo OPA-C - 07/10/2014 4:42 PM CST sylvester H. Dorothea Cisneros PH: [phone] E CHANGER Guzman Caicedo OPA-C - 07/10/2014 4:42 PM CST Progress Notes signed by JAIRO Coronado at 07/11/14752 Author: JAIRO Coronado Service: (none) Author Type: ORTHOPAEDIC DYE BOX OPERATOR, CERTIFIED Filed: 07/11/14 0753 Note Time: 07/11/14510 Status: Signed Pricing Director: JAIRO Coronado (ORTHOPAEDIC DYE BOX OPERATOR, CERTIFIED) NAME: SHEKHAR PICKETT MR#: [id number] CSN: [id number] AUTHENTICATING CLINICIAN: SANDRA Coronado CONFIRM #: [id number] LOC: 711 CLINIC PROGRESS NOTE DATE OF VISIT: 07/10/2014 : 1970 DATE OF SURGERY: 06/26/2014. 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 SURGICAL PROCEDURE: Excision of the neuroma left 3rd intermetatarsal space. 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 The patient is doing well. She is still complaining about numbness on the dorsum of the foot. The patient complains about pain that is rated 0/10 when resting and at the end of the day. The patient denies fever, chills, sweats on the extremity operated on. She complains about numbness on the dorsum of the foot, 3rd, 2nd and 1st toe. PHYSICAL EXAM: DRESSINGS: Surgical shoe removed and the dressings came out dry and clean. SKIN: Benign. Scar is healing well. No signs of infection. The stitches are present. A small amount of swelling is still present on the surgical area. The pressure sore is 1.5 cm in diameter and stage 1. NEUROVASCULAR: DPN, SPN down an area of 12 x 5 cm including half of the 3rd toe to the 1st toe. The half the 3rd toe laterally to the 5th toe with normal sensation. On the plantar side there is hypesthesia on the 3rdand 4th toe. RANGE OF MOTION: Ankle, plantar flexion, dorsiflexion, inversion, and eversion present and normal. Muscle strength 5/5. Motion on the toes from the 1st to the 5th toe present and normal, more accentuated on the 1st and2nd. Homans test negative. Capillary refill 1 second. Dorsalis pedis, posterior tibialis pulses present and normal. IMPRESSION: Two weeks out of surgery and doing well, except for the neurapraxia due to the compression of the dressings on the dorsum of the foot that is creating this neurapraxia on the superficial and deep peroneal nerve. PLAN: Wound: Cleaned up, stitches removed and replaced with Steri-Strips. Weightbearing: Start weightbearing with a CAM boot. Brace: Transferred from the surgical shoe to a CAM boot, which is going to be used for 2 weeks more. PT: Not indicated at this moment. Followup: Be back in [address] Roblero at that time. HS:WAQAS C: R:07/10/14 16:48 CONFIRM#:[id number] E CHANGER Guzman Caicedo OPA-C - 07/10/2014 4:28 PM CST Progress Notes signed by JAIRO Coronado at 07/11/14 0749 Author: JAIRO Coronado Service: (none) Author Type: ORTHOPAEDIC DYE BOX OPERATOR, CERTIFIED Filed: 07/11/14 0749 Note Time: 07/11/14 0515 Status: Signed Pricing Director: JAIRO Coronado (ORTHOPAEDIC DYE BOX OPERATOR, CERTIFIED) E CHANGER documented in this encounter Plan of Treatment Not on filedocumented as of this encounter Visit Diagnoses Diagnosis Postop check - Primary Follow-up examination, following unspeci fied surgery documented in this encounter Care Teams Bus Analyst Relationship Specialty Start Date End Date Pcp, Pt MD Jovon PCP - General 04/15/14 [place] [address] documented as of this encounter
--- OUTSIDE RECORDS SUMMARY | 2022-07-05 15:52 | XMS_ITS | Encounter Summary ---
:1970 Author Organization [employer] Address [address] [address] Care Team Providers Name Role Phone PcpPraveen MD Primary Care Provider Encounter Details Date Type Department Care Team Description 12/24/2020 Immunization [place] Covid Encounter for Vaccine Program administration of vaccine [address] JOS GUEVARA (Primary Dx) [place], [place] [address] Social History Tobacco Use [...] Primary documented in this encounter Care Teams Ink Technician Relationship Specialty Start Date End Date Praveen Isabel MD PCP - General 04/15/14 [place] [address] documented as of this encounter
--- OUTSIDE RECORDS SUMMARY | 2022-07-05 15:52 | XMS_ITS | Encounter Summary ---
:1970 Author Organization [employer] Address [address] [place] [address] Care Team Providers Name Role Phone Pcp, Pt Declines MD Primary Care Provider Encounter Details Date Type Department Care Team Description 06/26/2014 Hospital Encounter [facility]ie Roblero D[facility] [address] [place] [address] [address] [place] [address] [place], [place] [address] [phone] Social History Tobacco Use Types Packs/Day Years Used Date Smoking Tobacco: Never Assessed Sex Assigned at Date Recorded Not on file documented as of this encounter Last Filed Vital Signs Vital Sign Reading Time Taken Comments Blood Pressure - - Pulse - - Temperature - - Respiratory Rate - - Oxygen Saturation - - Inhaled Oxygen Concentration - - Weight 68 kg (150 lb) 06/24/2014 4:48 PM CDT Height 157.5 cm (5' 2) 06/24/2014 4:48 PM CDT Body Mass Index 27.44 06/24/2014 4:48 PM CDT documented in this encounter Medications at Time of Discharge [...] 24 hours). documented as of this encounter Procedure Notes Keven Roblero DPM - 06/26/2014 11:29 AM CDT Op Note signed by Keven Roblero DPM at 07/01/14 1440 Author: Keven Roblero DPM Service: (none) Author Type: Physician Filed: 07/01/14 1440 Note Time: 06/26/14 1242 Status: Signed Top Icer: Keven Roblero DPM (Physician) NAME: SHEKHAR PICKTET MR#: [id number] CSN: [id number] AUTHENTICATING CLINICIAN: Keven Roblero DPM CONFIRM #: [id number] LOC: 725 OPERATIVE REPORT DATE OF OPERATION: 06/26/2014 : 1970 SURGEON: Keven Roblero DPM FROG OR OYSTER FARMWORKER: Brayan Altamirano MD PREOPERATIVE DIAGNOSIS: Neuroma 3rd IMS left foot. POSTOPERATIVE DIAGNOSIS: Neuroma 3rd IMS left foot. OPERATION PERFORMED: Excision of neuroma 3rd IMS left foot. FINDINGS: Nerve enlargement 3rd IMS at the plantar common intermetatarsal nerve at the level of bifurcation, left foot. OPERATIVE INDICATIONS: This 43-year-old female has a several month history of painful left forefoot. 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 The patient had undergone treatment with corticosteroid injection which did not give any lasting relief. The patient therefore elected to proceed forward with surgical excision. ANESTHESIA: MAC. DESCRIPTION OF THE PROCEDURE: The patient was transported from the preoperative holding area to the operatory suite and placed in a supine position. All monitors were placed. Patient's vitals were monitored throughout the case per Anesthesia. After successful IV sedation, after appropriate qhelw-uss-yfv-cause, attention was directed to the left foot at which time approximately 15 mL of 1% lidocaine plain was used to perform a proximal field block to the 3rd intermetatarsal space as well as a block within the intermetatarsal space itself. A left ankle tourniquet was applied and the left foot was prepped and draped in the usual aseptic manner. Of note, the patient was given 1 gm of Ancef IV push preoperatively. After febkkolvbsdnlbxn-lur-uag-cause for surgical site identification once again, attention was directed to the left foot at which time the left foot was exsanguinated with the use of an Esmarch and the left ankle tourniquet was elevated to a pressure of 200 mmHg. Attention was directed to the plantar aspect 3rd IMS of the left foot at which time a linear skin incision approximately 4 cm in length was created extending from just distal metatarsophalangeal joint level proximally. This incision was carefully placed to avoid the direct plantar weightbearing surface of the 3rd and 4th MTPJ's. The incision was deepened through subcutaneous tissue, carefully avoiding all neurovascular structures. Electrocautery was utilized for hemostasis of potential superficial venous bleeders. Through blunt and sharp dissection the nerve mass was identified. The plantar common intermetatarsal nerve was noted at the level just proximal to the bifurcation. The bifurcation itselfwas quite enlarged. Each proper digital nerve branch was identified and transected. The nerve was then followed well proximal to the metatarsophalangeal joint level, placed under distal traction and transected proximally to approximately 1.5-2 cm in length of normal appearing nerve at its proximal exte nt. The remaining nerve retracted nicely into surrounding soft tissues. Ankle tourniquet was deflated at 17 minutes. Brisk capillary refill was again noted to all the digits of the left foot. Excellent hemostasis was noted. The wound was copiously irrigated with sterile saline. The wound was closed in layers utilizing 5-0 Vicryl and 4-0 nylon. Approximately 7 mL of 0.25% S ensorcaine plain was utilized for postoperative anesthesia. Gauze and Kerlix dressing was placed. Patient left the operatory suite with all vital signs stable, in good condition, tolerated all procedures well, all counts were correct. Patient will be seen in one week's time by Guzman for wound evaluation and dressing change. Patient will remain strict nonweightbearing for another week and see Guzman at 2 weeks postop for suture removal. Patient can be advanced to an ankle immobilizer at one week postop, though again still nonweightbearing until the sutures are removed. After 4 weeks from the date of surgery the patient can advance to a good supportive shoe, keeping ambulatory activities limited. I will see the patient in approximately 6 weeks or so for followup. JOSIE: C: R:06/26/14 11:49 CONFIRM#:[id number] documented in this encounter Miscellaneous Notes Medication History - Integration, MD Juan Antonio - 06/26/2014 12:22 PM CDT INPATIENT MEDS Encounter Date: 06/11/14 oxyCODONE (ROXICODONE) 5 mg immediate release tablet Start Date:06/26/14, End Date:08/07/14, Frequency:EVERY 4 HOURS PRN *No Administrations Recorded cholecalciferol (VITAMIN D3) 1,000 unit tablet Start Date:-, End Date:-, Frequency:DAILY *No Administrations Recorded Ferrous Gluconate 325 mg (36 mg iron) Tab Start Date:-, End Date:-, Frequency:DAILY *No Administrations Recorded midazolam (VERSED) 1 mg/mL injection 1-2 mg Start Date:06/26/14, End Date:06/26/14, Frequency:EVERY 5 MIN PRN *No Administrations Recorded fentaNYL (SUBLIMAZE) injection 25-50 mcg Start Date:06/26/14, End Date:06/26/14, Frequency:EVERY 5 MIN PRN *No Administrations Recorded midazolam (VERSED) 1 mg/mL injection 0.5-1 mg Start Date:06/26/14, End Date:06/26/14, Frequency:EVERY 5 MIN PRN *No Administrations Recorded fentaNYL (SUBLIMAZE) injection 25-50 mcg Start Date:06/26/14, End Date:06/26/14, Frequency:EVERY 5 MIN PRN *No Administrations Recorded morphine injection 1-3 mg Start Date:06/26/14, End Date:06/26/14, Frequency:EVERY 5 MIN PRN *No Administrations Recorded HYDROmorphone (DILAUDID) injection 0.2-0.4 mg Start Date:06/26/14, End Date:06/26/14, Frequency:EVERY 10 MIN PRN *No Administrations Recorded ondansetron (ZOFRAN) injection 4 mg Start Date:06/26/14, End Date:06/26/14, Frequency:EVERY 4 HOURS PRN *No Administrations Recorded prochlorperazine (COMPAZINE) injection 5 mg Start Date:06/26/14, End Date:06/26/14, Frequency:PRN *No Administrations Recorded diphenhydrAMINE (BENADRYL) injection 25 mg Start Date:06/26/14, End Date:06/26/14, Frequency:ONCE PRN *No Administrations Recorded ePHEDrine injection 25 mg Start Date:06/26/14, End Date:06/26/14, Frequency:ONCE PRN *No Administrations Recorded meperidine (DEMEROL) injection 12.5 mg Start Date:06/26/14, End Date:06/26/14, Frequency:EVERY 5 MIN PRN *No Administrations Recorded IP AVS Snapshot - Juan Antonio Mata MD - 06/26/2014 12:22 PM CDT [facility] [place] [address] [place] [address] Surgical Summary 06/26/2014 Admission Shekhar Pickett MRN: : [id number] Admission Information Department Dept Phone Hosp. Acct. # 06/26/2014 9:36 AM [facility] [place] [phone] Admitting Provider Information Provider Pager Service Admission Date Keven Roblero DPM Ambulatory Surgery 06/26/2014 Actual LOS 0 days General Information Allergies No Known Allergies Discharge Procedures (720h ago through future) None Current Immunizations Never Reviewed No immunizations on file. Current Discharge Medication List UNREVIEWED medications Medication Last Dose Given;Last Dose Given: cholecalciferol (VITAMIN D3) 1,000 unit tablet Last Dose Given: citalopram (CELEXA) 10 mg tablet Last Dose Given: Ferrous Gluconate 325 mg (36 mg iron) Tab Last Dose Given: levothyroxine (SYNTHROID) 25 mcg tablet Last Dose Given: loratadine (CLARITIN) 10 mg tablet Last Dose Given: START taking these medications Medication Last Dose Given;Last Dose Given: oxyCODONE (ROXICODONE) 5 mg immediate release tablet Last Dose Given: Take 1 tablet by mouth every 4 hours as needed for Pain. Quantity: 40 tablet Refills: 0 Start date: 06/26/2014 Managing your medication list is very important. Update your medication information when your medications are discontinued, doses are changed, or new medications (including mibh-juw-zwtgiig products) are added. You are also encouraged to carry medication information at all times in the event of emerge ncy situations. Nurse initals that this was reviewed with the patient. Future Appointments Provider Department Dept Phone 07/03/2014 10:30 AM JAIRO Coronado [facility] [phone] 07/10/2014 4:00 PM JAIRO Coronado [facility] [phone] 08/07/2014 3:15 PM Keven Roblero DPM [facility] [phone] Patient Belongings Most Recent Value Patient Belongings Valuables Jewelry [pandora bracelet given to mother,Khushbu] Clothing Plastic Bag Plastic Bag SC/ASC-w/ belongings Patient Instructions None Appointments for Next 60 Days 07/03/2014 10:30 AM POST-OP [facility] [[id number]] 30 min Please arrive 15 minutes prior to your appointment. It is important to bring a list of all of your medications and over the counter supplements, your insurance card, copay and photo ID. Please bring any relevant medical records and films to your visit. If you are unable to keep your appointment, please provide us with a 24 hour notice of cancellation. From the East: Take [address] to the [facility] exit. Turn left on [address] and proceed to [address] Turn left at the stoplight on [address] Turn left on [address] and follow it to the [facility] parking ramp. From the West: Take [address] to the [facility] exit. Turn right on [address] and proceed to [address] Turn left at the stoplight on [address] Turn left on [address] and follow it to the [facility] parking ramp. 07/10/2014 4:00 PM POST-OP [facility] [[id number]] 30 min Please arrive 15 minutes prior to your appointment. It is important to bring a list of all of your medications and over the counter supplements, your insurance card, copay and photo ID. Please bring any relevant medical records and films to your visit. If you are unable to keep your appointment, please provide us with a 24 hour notice of cancellation. From the East: Take [address] to the [facility] exit. Turn left on [address] [facility] and proceed to [address] Turn left at the stoplight on [address] Turn left on [address] and follow it to the [facility] parking ramp. From the West: Take [address] to the [facility] exit. Turn right on [address] and proceed to [address] Turn left at the stoplight on [address] Turn left on [address] and follow it to the [facility] parking ramp. 08/07/2014 3:15 PM POST-OP [facility] [[id number]] 15 min Please arrive 15 minutes prior to your appointment. It is important to bring a list of all of your medications and over the counter supplements, your insurance card, copay and photo ID. Please bring any relevant medical records and films to your visit. If you are unable to keep your appointment, please provide us with a 24 hour notice of cancellation. From the East: Take [address] to the [facility] [address] exit. Turn left on [address] and proceed to [address] Turn left at the stoplight on [address] Turn left on [address] and follow it to the [facility] parking ramp. From the West: Take [address] to the [facility] exit. Turn right on [address] and proceed to [address] Turn left at the stoplight on [address] Turn left on [address] and follow it to the [facility] parking ramp. ` Nurse Signature: Date: ` Patient Signature: Date: documented in this encounter Plan of Treatment Not on filedocumented as of this encounter Procedures Procedure Name Priority Date/Time Associated Comments Diagnosis [facility] OBTAINED Routine 06/26/2014 11:12 AM Results for this ANATOMICAL PATHOLOGY CDT procedu re are in the results section. SURGICAL PATHEMMANUEL 06/26/2014 7:00 AM Re sults for this NICOLLET CDT procedure are i n the results section. documented in this encounter Results LAB [facility] OBTAIN[facility] ANATOMICAL PATHOLOGY (06/26/2014 11:12 AM CDT) P athologist Signature Tria Tis See Path HP CONVERSION Specimen (Source) Anatomical Collection Method Collection Time Re ceived Time Location / / Volume Laterality 06/26/2014 11:12 AM CDT Keven Roblero DPM LAB_1 Performing Organization Address City/State/ZIP Code Phon e Number HP CONVERSION Pathology Report (06/26/2014 7:00 AM CDT) Patholo gist Method Time Signature Path: ?FINAL SURGICAL PATHOLOGY REP ORT HP CONVERSION Pathology #: [id number] ? Date Obtained: 06/26/2014 ?Date Received: 06/26/2014 DIAGNOSIS: Soft tissue of left foot 3rd IMS, excision: ??- Welch neuroma. ? Violeta LIN ? (electronic signatur e) ? 06/27/2014 ??12:3 3 CLINICAL NOTES: Excision neuroma 3rd intermetatarsal space left foot ORGAN/TISSUE SITE: Left foot 3rd intermetatarsal space GROSS DESCRIPTION: Received in formalin and labeled left foot 3rd IMS is a 4 c m long thin white strip of soft tissue. Entirely submitted in 1 merry prieto ?[facility] MICROSCOPIC DESCRIPTION: Microscopic examination performed. CPT Codes: ?81766 x 1 ? End of Report Specimen Anatomical Collection Method Collection Time Receive d Time (Source) Location / / Volume Laterality ENTIRE NERVE / 06/26/2014 7:00 AM 014 7:00 Unknown CDT AM CDT Keven Roblero DPM LAB_1 Performing Organization Address City/State/ZIP Code Phon e Number HP CONVERSION documented in this encounter Visit Diagnoses Not on filedocumented in this encounter Care Teams Roll Repairer Relationship Specialty Start Date End Date PcpPraveen MD PCP - General 04/15/14 [place], [place] [id number] documented as of this encounter
--- OUTSIDE RECORDS SUMMARY | 2022-07-05 15:52 | XMS_ITS | Encounter Summary ---
:1970 Author Organization [email or web address] Address [address] [address] Care Team Providers Name Role Phone Pcp, Pt Declines MD Primary Care Provider Reason for Visit Reason Comments Post Op Exam Encounter Details Date Type Department Care Team Description 07/14/2014 Office Visit [facility] Brenda Rodríguez neuroma [facility] MYAH Mcdaniel (Primary Dx) [address] [facility] [address] [place], [place] [address] [address] [place], [place] [phone] [address] Social History Tobacco Use Types Packs/Day Years Used Date Smoking Tobacco: Never Assessed Sex Assigned at Date Recorded Not on file documented as of this encounter Patient Instructions Patient InstructionsEmeka Kelley LPN - 07/14/2014 11:01 AM CST Brenda Rodríguez PA-C Foot and Ankle Orthopedics Nurses: Please contact [facility] Nurse Line for all medical related questions at [phone] Medication Requests: Prescriptions are not filled on Weekends or on Weekdays after 3:00PM For all medication refills you may request a refill using MyChart or contact your Pharmacy. AND PRODUCTION PLANNER documented in this encounter Progress Notes Brenda Rodríguez - 07/14/2014 1:12 PM CST Post op clinic note dictated AND PRODUCTION PLANNER Brenda Rodríguez - 07/14/2014 1:11 PM CST Progress Notes signed by Brenda Rodríguez PA-C at 07/16/14930 Author: Brenda Rodríguez PA-C Service: (none) Author Type: Physician Student Accounts Coordinator Filed: 07/16/14930 Note Time: 07/16/14822 Status: Signed Press Loader: Brenda Rodríguez PA-C (Physician Student Accounts Coordinator) NAME: SHEKHAR PICKETT MR#: [id number] CSN: [id number] AUTHENTICATING CLINICIAN: Brenda Rodríguez PA-C CONFIRM #: [id number] LOC: 711 CLINIC PROGRESS NOTE DATE OF VISIT: 07/14/2014 : 1970 REASON FOR VISIT: Two weeks past status post left foot excision of neuroma 3rd IMS. HPI: Ms. Pickett is a very pleasant 43-year-old female who is known to me for nonsurgical treatment of aMorton's neuroma, but subsequently underwent surgical intervention by Dr. Roblero for this on 06/26/2014. Patient reports recently having her surgical stitches removed at her 2 week postop appointment and leading up to that she was without issue. She did begin weightbearing after the stitches were removed. Began to experience throbbing type pain and minimal bleeding on her dressings. She presents today for concerns. She denies any fevers, chills, night sweats, purulent discharge or increased warmth or redness around the surgical site. She has been covering with a gauze bandage. PHYSICAL EXAM: Sitting on the examining table in no apparent distress. Is pleasant and cooperative during the exam. SKIN: Plantar surgical incision noted to the area of the 3rd IMS. Does not appear to be grossly infected. No active drainage with fierce nor bloody. However appreciated is some separation of the skin edges with light manipulation. Underlying granulation tissue is appreciated and separation is appreciable to the majority of the surgical incision with the exception of the distal 3rd portion which is completely healed. NEUROVASCULAR: Pedal pulses are palpable and sensation is grossly intact. ASSESSMENT: Two weeks status post left foot excision of 3rd IMS neuroma with delayed wound healing. PLAN: I discussed the patient's diagnoses with her and how it relates to her symptomatology and discussed that given the stitches recently coming out and weightbearing in a boot may have been too much stressfor the incision, therefore the separation. I also discussed the possibility of spitting of the suture, but I do not appreciate that suture today. I recommend, at this time, going back to nonweightbearing status for this week and to secure the wound edges with a Steri-Strip. The patient is not to do any type of wound care and she is not to soak her foot. I cautioned the patient to look for signs and symptoms of infection, and if this were the case, then she is to contact us for evaluation. Otherwise, patient will begin weightbearing status in the boot after this weekend and follow the previously prescribed instructions thereafter. The patient asked appropriate questions which I answered to her satisfaction. She appears to understand and agree with the plan. Dictated by: MYAH CherryM:MARIKA C: R:07/14/14 15:21 CONFIRM#:[id number] AND PRODUCTION PLANNER documented in this encounter Plan of Treatment Not on filedocumented as of this encounter Visit Diagnoses Diagnosis Welch neuroma - Primary Lesion of plantar nerve documented in this encounter Care Teams Board Layer Relationship Specialty Start Date End Date Pcp, Prvaeen Sigala MD PCP - General 04/15/14 [place] [address] documented as of this encounter
--- OUTSIDE RECORDS SUMMARY | 2022-07-05 15:53 | XMS_ITS | Encounter Summary ---
:1970 Author Organization [employer] Address [address], [place] [address] Care Team Providers Name Role Phone Unassigned, Provider Primary Care Provider Unavailable Encounter Details Date Type Department Care Team Description 04/28/2010 PN Conversion Only [facility] [address] [place], [place] [address] Social History Tobacco Use Types Packs/Day Years Used Date Smoking Tobacco: Never Assessed Sex Assigned at Date Recorded Not on file documented as of this encounter Plan of Treatment Not on filedocumented as of this encounter Procedures Procedure Name Priority Date/Time Associated Diagnosis Comme nts MR LUMBAR SPINE WO Routine 04/28/2010 2:56 PM Res ults for this IV CONT CDT procedure are i n the results section. documented in this encounter Results MR Lumbar Spine WO IV Cont (04/28/2010 2:56 PM CDT) Anatomical Region Laterality Modality Spine, L-Spine, Skeletal Other Specimen (Source) Anatomical Location Collection Method / Collectio n Time Received Time / Laterality Volume Impressions 04/28/2010 2:56 PM CDT : 1. At the L5-S1 level there is resolutio n of previously seen moderate disk herniation. There is a stable broad -based posterior disk bulge at this level which causes mild effaceme nt of the lateral recesses and mild neuroforaminal narrowing. Dictating KILO MARTINEZ Radiologist Narrative 04/28/2010 2:56 PM CDT TECHNIQUE: ??Routine MRI of the lumbar spine without ??IV Magnevist. COMPARISON: ??04/20/2007 FINDINGS: ??The alignment, vertebral bod y height in the lumbar spine are normal. ??Degenerative endplate augustin ges at the opposing endplates of L5-S1 are redemonstrated. ?Conus is normal in appearance. Tarlov cysts in the sacrum stable. T12-L1: ?? No central canal or neural fo raminal narrowing. L1-2: ??0.5 cm hyper T2 intense lesion i n the left neuroforamina likely represents a small perineural cys ts. ??No central canal or neuroforaminal narrowing. L2-3: ?? No central canal or neural fora tristan narrowing. L3-4: ?? No central canal or neural fora tristan narrowing. L4-5: ?? No central canal or neural fora tristan narrowing. L5-S1: ??Disk desiccation. ??Mild broad posterior is stable. There is resolution of previously seen moderate d isk herniation at this level. Mild effacement of the lateral recesses and mild bilateral neural foraminal narrowing is redemonstrated. Procedure Note Kilo Raines MD - 02/18/2016For matting of this note might be different from the original. TECHNIQUE: Routine MRI of the lumbar spi ne without IV Magnevist. COMPARISON: 04/20/2007 FINDINGS: The alignment, vertebral body height in the lumbar spine are normal. Degenerative endplate change s at the opposing endplates of L5-S1 are redemonstrated. Conus is no rmal in appearance. Tarlov cysts in the sacrum stable. T12-L1: No central canal or neural pablo inal narrowing. L1-2: 0.5 cm hyper T2 intense lesion in the left neuroforamina likely represents a small perineural cys ts. No central canal or neuroforaminal narrowing. L2-3: No central canal or neural foramin al narrowing. L3-4: No central canal or neural foramin al narrowing. L4-5: No central canal or neural foramin al narrowing. L5-S1: Disk desiccation. Mild broad post erior is stable. There is resolution of previously seen moderate d isk herniation at this level. Mild effacement of the lateral recesses and mild bilateral neural foraminal narrowing is redemonstrated. IMPRESSION : 1. At the L5-S1 level there is resolutio n of previously seen moderate disk herniation. There is a stable broad -based posterior disk bulge at this level which causes mild effaceme nt of the lateral recesses and mild neuroforaminal narrowing. Dictating KILO MARTINEZ Radiologist Ender Ruiz MD RAD MRI documented in this encounter Visit Diagnoses Not on filedocumented in this encounter Care Teams Car Rental Deliverer Relationship Specialty Start Date End Date Unassigned, Provider PCP - General 12/26/00 04/14/[address] [place] [address] documented as of this encounter
--- OUTSIDE RECORDS SUMMARY | 2022-07-05 15:53 | XMS_ITS | Encounter Summary ---
:1970 Author Organization [facility] Address [address], [place] [address] Care Team Providers Name Role Phone Unassigned, Provider Primary Care Provider Unavailable Encounter Details Date Type Department Care Team Description 04/17/2007 PN Conversion Only [facility] [address] [facility] [place] [address] Social History Tobacco Use Types Packs/Day Years Used Date Smoking Tobacco: Never Assessed Sex Assigned at Date Recorded Not on file documented as of this encounter Plan of Treatment Not on filedocumented as of this encounter Visit Diagnoses Not on filedocumented in this encounter Care Teams Solid Waste Landfill Technician Relationship Specialty Start Date End Date Unassigned, Provider PCP - General 12/26/00 04/14/[address] [place] [address] documented as of this encounter
--- OUTSIDE RECORDS SUMMARY | 2022-07-05 15:53 | XMS_ITS | Encounter Summary ---
:1970 Author Organization [employer] Address [address], [place] [address] Care Team Providers Name Role Phone Unassigned, Provider Primary Care Provider Unavailable Encounter Details Date Type Department Care Team Description 11/10/2010 Office Visit [facility] Tonia Ruiz MD [address] [place] [address] [address] [place] [address] [phone] (Wo rk) Social History Tobacco Use Types Packs/Day Years Used Date Smoking Tobacco: Never Assessed Sex Assigned at Date Recorded Not on file documented as of this encounter Progress Notes Tonia Ruiz MD - 11/10/2010 12:01 AM CST NAME: SHEKHAR PICKETT VISIT: [id number] DICTATING CLINICIAN: TONIA RUIZ MD JOB: [id number] LOC: 3711 CLINIC PROGRESS NOTE DATE OF VISIT: 11/10/2010 HISTORY: Shekhar Pickett returns today in followup. She is status post MAST TLIF at L5-S1 on 08/09/2010. She is now 3 months out. She is doing extremely well. She does not have the back pain that she had prior to surgery and her leg pain she had prior to her surgery. Her CELSA is 10 secondary to restrictions I placed upon her with regards to lifting in particular. She is happy with the surgical results. She does feel a pop in her back when she flexes both hips. CLINICAL EXAMINATION: Her clinical exam shows that her incision has healed nicely. Neurovascular examination is normal. Her calves are supple. The pop that she experiences is more than likely secondary to a muscular abrasion over the screws secondary to the minimally invasive technique, but overall I do not see anything overtly worrisome. RADIOGRAPHS: X-rays independently ordered and reviewed. X-rays show screw is well positioned. Interbody graft appears to be consolidating nicely. No signs of postoperative complications. ASSESSMENT: At this point she is doing well 3 months out status post MAST TLIF at L5-S1. PLAN: See me back in the office here in followup in 3 months' time. Prior to being seen, she will have AP, lateral and Daley views taken. DOCUMENT: [id number]. [id number] URES EDITOR documented in this encounter Plan of Treatment Not on filedocumented as of this encounter Procedures Procedure Name Priority Date/Time Associated Diagnosis Comme nts XR LUMBAR SPINE 2-3 Routine 11/10/2010 1:42 PM Re sults for this VIEWS FEATURES EDITOR procedure are i n the results section. documented in this encounter Results XR Lumbar Spine 2-3 Views (11/10/2010 1:42 PM FEATURES EDITOR) Anatomical Region Laterality Modality Spine, L-Spine Other Specimen (Source) Anatomical Location Collection Method / Collectio n Time Received Time / Laterality Volume Narrative 11/10/2010 1:42 PM FEATURES EDITOR X-rays show screw is well positioned. ??Interbody graft appears to be consolidating nicely. ??No signs of post operative complications. KJM/ramiro Dictating TONIA HIDALGO Physician Procedure Note Tonia Ruiz MD - 02/18/2016Format ting of this note might be different from the original. X-rays show screw is well positioned. In terbody graft appears to be consolidating nicely. No signs of postop erative complications. KJM/ramiro Dictating TONIA HIDALGO Physician Tonia Ruiz MD RAD GD documented in this encounter Visit Diagnoses Not on filedocumented in this encounter Care Teams Disaster Recovery Specialist Relationship Specialty Start Date End Date Unassigned, Provider PCP - General 12/26/00 04/14/[address] [place] [address] documented as of this encounter
--- OUTSIDE RECORDS SUMMARY | 2022-07-05 15:53 | XMS_ITS | Encounter Summary ---
:1970 Author [facility] Address [address], [place] [address] Care Team Providers Name Role Phone Unassigned, Provider Primary Care Provider Unavailable Reason for Visit Reason Comments Other Encounter Details Date Type Department Care Team Description 09/19/2006 Telephone [facility] Jose J Cortes MD Other [address] [facility] [address] [facility] [place], [place] [address] [place] [address] [phone] (Wo rk) Social History Tobacco Use Types Packs/Day Years Used Date Smoking Tobacco: Never Assessed Sex Assigned at Date Recorded Not on file documented as of this encounter Progress Notes Brenda Varela - 09/19/2006 9:31 AM CST Phone Note filed by Brenda Varela RN at 12/21/101427 Author: Brenda Varela RN Service: (none) Author Type: (none) Filed: 12/21/101427 Note Time: 09/19/06930 Status: Signed Hand Cultivator: Shaka Rollins 500 #30 per your V.O. Pt notified. Thanks. Created on 19Sep2006 9:31am by BRENDA VARELA Acknowledged by JOSE J CORTES on 10:11am TRAINER MAINTENANCE MAN documented in this encounter Plan of Treatment Not on filedocumented as of this encounter Visit Diagnoses Not on filedocumented in this encounter Care Teams [employer] Coxswain Relationship Specialty Start Date End Date Unassigned, Provider PCP - General 12/26/00 04/14/14 [address] [place] [address] documented as of this encounter
--- OUTSIDE RECORDS SUMMARY | 2022-07-05 15:53 | XMS_ITS | Encounter Summary ---
:1970 Author Organization [employer] [facility] Address [address], [place] [address] Care Team Providers Name Role Phone PcpPraveen MD Primary Care Provider Encounter Details Date Type Department Care Team Description 11/26/2013 Orders Only [facility] MD Alysia Security Contact Bill [address] [place] [address] Mailstop [phone] (Wo rk) Social History Tobacco Use Types Packs/Day Years Used Date Smoking Tobacco: Never Assessed Sex Assigned at Date Recorded Not on file documented as of this encounter Plan of Treatment Not on filedocumented as of this encounter Visit Diagnoses Not on filedocumented in this encounter Care Teams Golf Sales Manager Relationship Specialty Start Date End Date PcpPraveen MD PCP - General 04/15/14 [place], [place] [address] documented as of this encounter
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
--- OUTSIDE RECORDS SUMMARY | 2022-07-05 15:53 | XMS_ITS | Encounter Summary ---
:1970 Author Organization [employer] Address [address], [place] [address] Care Team Providers Name Role Phone Pcp, Pt Declines MD Primary Care Provider Reason for Visit Reason Comments Foot Pain Encounter Details Date Type Department Care Team Description 06/11/2014 Surgical Consult [facility] Keven Roblero Ne uroma (Primary CENTER DPM Dx) [address] [facility] [address] [place] [address] [address], [place] [address] [phone] Social History Tobacco Use Types Packs/Day Years Used Date Smoking Tobacco: Never Assessed Sex Assigned at Date Recorded Not on file documented as of this encounter Last Filed Vital Signs Vital Sign Reading Time Taken Comments Blood Pressure - - Pulse - - Temperature - - Respiratory Rate - - Oxygen Saturation - - Inhaled Oxygen Concentration - - Weight 68.9 kg (152 lb) 06/11/2014 10:51 AM CDT Height 160 cm (5' 3) 06/11/2014 10:51 AM CDT Body Mass Index 26.93 06/11/2014 10:51 AM CDT documented in this encounter Patient Instructions Patient InstructionsEmeka Kelley, POLINA - 06/11/2014 12:[address] Keven Roblero, DIYAM Podiatric Medicine & Billing AuditorOutside Repairer Special, [facility] Spacecraft Systems Engineer: Stephania De Souza Please call Stephania for all administrative questions at [phone] Nurses: Please contact [facility] Nurse Group for all medical questions at [phone] Medication Requests: Prescriptions are not filled on Weekends or on Weekdays after 3:00PM For all medication refills: Request a refill using MyChart or contact your Pharmacy Patient was scheduled for surgery documented in this encounter Progress Notes Keven Roblero DPM - 06/11/2014 12:36 PM CDT Progress Notes signed by Keven Roblero DPM at 06/17/142027 Author: Keven Roblero DPM Service: (none) Author Type: Physician Filed: 06/17/142027 Note Time: 06/13/14850 Status: Signed Crm Solution Architect: Keven Roblero DPM (Physician) NAME: SHEKHAR PICKETT MR#: [id number] CSN: [id number] AUTHENTICATING CLINICIAN: Keven Roblero DPM CONFIRM #: [id number] LOC: 711 CLINIC PROGRESS NOTE DATE OF VISIT: 06/11/2014 : 1970 SUBJECTIVE: This is an initial clinic visit for this patient who presents this day with a complaint of pain in the left forefoot. 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 This was on 04/16/2014 at which time the patient had undergone a corticosteroid injection. The patient states this did give short-term relief, although her symptoms are recurring. These symptoms started several months ago and have escalated with time. She feels like she is walking on a lump or fullness and also will feel a popping or shifting to the left forefoot. She will get pain to the ball of foot, but numbness will radiate to the 3rd and 4th toes of the left foot. She would l shannan something definitive be done for this. She has limited her ambulatory activities. VITALS: Height 63 inches. Weight 152 pounds. Pain is rated as high as a 5/10 though intermittent in nature. PAST SURGICAL HISTORY: Spinal fusion. CURRENT MEDICATIONS: Levothyroxine and Celexa. ADR/ALLERGIES: No known drug allergies. SOCIAL HISTORY: Patient is and lives with her and two children. 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 The patient is a well-groomed, pleasant, cooperative 43-year-old female in no acute distress. Pedal pulses are palpable. Neurological status grossly intact. No erythema or edema to the left foot. The integument is warm to palpation with good capillary refill to all the toes. There is pain on palpation within the 3rd IMS just distal to the metatarsal head region of the left foot. There is a grossly positive Jean's sign. There is no pain on palpation of the lesser MTPJ's nor with range of motion. 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 PLAN: Discussed Welch's neuroma in detail. Discussed treatment options. At this point in time the patientwas interested in definitive care. I reviewed with the patient surgical excision. Discussed the plantar approach and rationale for this. Discussed potential risks and complications including, but not limited to, recurrence of stump neuroma, painful plantar scar, infection and possible need for furthersurgery. I did inform the patient she will have permanent partial numbness to the 3rd and 4th toes of the left foot. This will be performed as an outpatient under MAC anesthesia at [facility] [place] [facility]. Patient will be scheduled at her leisure. JOSIE: C: R:06/11/14 12:59 CONFIRM#:[id number] documented in this encounter Plan of Treatment Not on filedocumented as of this encounter Visit Diagnoses Diagnosis Neuroma - Primary Other benign neoplasm of connective and other soft tissue of unspecified site documented in this encounter Care Teams Counter Supervisor Relationship Specialty Start Date End Date Pcp, Praveen Sigala MD PCP - General 04/15/14 [place] [address] documented as of this encounter
--- OUTSIDE RECORDS SUMMARY | 2022-07-05 15:53 | XMS_ITS | Encounter Summary ---
:1970 Author Organization [facility] Address [address], [place] [address] Care Team Providers Name Role Phone Unassigned, Provider Primary Care Provider Unavailable Encounter Details Date Type Department Care Team Description 09/26/2007 Office Visit [facility] Ender Ruiz MD [address] [facility] [address] [place] [address] [address] [place] [address] [phone] (Wo rk) Social History Tobacco Use Types Packs/Day Years Used Date Smoking Tobacco: Never Assessed Sex Assigned at Date Recorded Not on file documented as of this encounter Progress Notes Ender Ruiz MD - 09/26/2007 12:01 AM CST Progress Notes signed by Ender Ruiz MD at 09/29/07 0643 Author: Ender Ruiz MD Service: (none) Author Type: Physician Filed: 12/25/10 0158 Note Time: 09/26/07 0001 Status: Signed Subsea Engineer: Ender Ruiz MD (Physician) NAME: SHEKHAR PICKETT MR#: [id number] ACCT: [id number] VISIT: [id number] DICTATING CLINICIAN: Ender Ruiz MD JOB: [id number] LOC: 3711 CLINIC PROGRESS NOTE DATE OF VISIT: 09/26/2007 SUBJECTIVE: : 1970. Shekhar returns today in followup. I last saw her in the office on 06/27/07. She is still having significant back pain. OBJECTIVE: Her MRI from April has been reviewed and once again, her clinical exam has been reviewed, and she has no change of symptoms. No neurologic deficit, no leg pain. She has failed conservative measures at this point. ASSESSMENT: PLAN: We talked about treatment options. I do feel that she would be a candidate for a fusion operation. We talked about the indication for discography. We talked about the roles of surgery and the indication for fusion, adjacent segment degenerative changes, and the risks, benefits, and alternatives of surgery. I do feel that secondary to her body habitus being that of a thin individual, she would be a good candidate for a minimally invasive spinal fusion procedure at [facility]. We talked about the risks, benefits, and alternatives of surgery including, but not limited to, bleeding, infection, dura laceration requiring repair, battered nerve root syndrome, error in screw placement requiring revision surgery, and adjacent segment degenerative changes theoretically. I have answered multiple questions to the best of my ability, and she is going to review her options and phone the office if she wishes to head the surgical direction. I did inform her and reconfirm that in my opinion, surgery should be the last resort, and only be used if she has failed all conservative measures, which I think she has been doing. Her pain symptoms have present for well over a year and a half, and it is certainly affecting her quality of life. KJM:[id number] C: 09/28/07 14:28 DOCUMENT: [id number] VENEER TAPER documented in this encounter Plan of Treatment Not on filedocumented as of this encounter Visit Diagnoses Not on filedocumented in this encounter Care Teams Arborist Climber Relationship Specialty Start Date End Date Unassigned, Provider PCP - General 12/26/00 04/14/[address] [place] [address] documented as of this encounter
--- OUTSIDE RECORDS SUMMARY | 2022-07-05 15:53 | XMS_ITS | Encounter Summary ---
:1970 Author Organization [facility] Address [address], [place] [address] Care Team Providers Name Role Phone Unassigned, Provider Primary Care Provider Unavailable Encounter Details Date Type Department Care Team Description 04/20/2007 PN Conversion Only [facility] [address] [place], [place] [address] Social History Tobacco Use Types Packs/Day Years Used Date Smoking Tobacco: Never Assessed Sex Assigned at Date Recorded Not on file documented as of this encounter Plan of Treatment Not on filedocumented as of this encounter Procedures Procedure Name Priority Date/Time Associated Diagnosis Comme nts MR LUMBAR SPINE WO Routine 04/20/2007 1:19 PM Res ults for this IV CONT CDT procedure are i n the results section. documented in this encounter Results MR Lumbar Spine WO IV Cont (04/20/2007 1:19 PM CDT) Anatomical Region Laterality Modality Spine, L-Spine, Skeletal Other Specimen (Source) Anatomical Location Collection Method / Collectio n Time Received Time / Laterality Volume Narrative 04/20/2007 1:19 PM CDT HISTORY: ??Low back pain with bilateral radicular pain. ??Sagittal and axial views, T1 and T2-weighted sequence s. FINDINGS: ??There is essential preservat ion of vertebral body height. Appears to be good anatomic alignment. ? ?There are type 1 endplate changes at L5-S1. ??Otherwise normal sig nal within the vertebral bodies. ??Cauda equina conus region is u nremarkable. ??The axial cuts obtained through the canal at L2-3 demon strate normal signal of disk, widely patent canal and foramen. ??Facet s unremarkable. L3-4: ??Normal signal of disk. ??Widely patent canal and foramen. Facets unremarkable. L4-5: ??Normal signal of disk. ??Widely patent canal and foramen. ??Mild fluid in the facets bilaterally. L5-S1: ??Type 1 endplate changes with an extruded disk of approximately 7-8 mm centrally and to th e left. ??Moderate central left canal and left lateral recess compr omise. ??Question S1 symptomatology more so to the left. CONCLUSION: ? 1. ?? Single ?level desicc ated disk at L5-S1 with an extruded disk centrally and to the ?left w ith moderate central and left canal and left lateral recess ?co mpromise. ? 2. ?? 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 [id number]/cs Dictating BRANDAN MOORE III Procedure Note Brandan Phillips MD - 11/04/2016Formatti ng of this note might be different from the original. HISTORY: Low back pain with bilateral ra dicular pain. Sagittal and axial views, T1 and T2-weighted sequence s. FINDINGS: There is essential preservatio n of vertebral body height. Appears to be good anatomic alignment. T here are type 1 endplate changes at L5-S1. Otherwise normal signa l within the vertebral bodies. Cauda equina conus region is unr emarkable. The axial cuts obtained through the canal at L2-3 demon strate normal signal of disk, widely patent canal and foramen. Facets unremarkable. L3-4: Normal signal of disk. Widely payne nt canal and foramen. Facets unremarkable. L4-5: Normal signal of disk. Widely payne nt canal and foramen. Mild fluid in the facets bilaterally. L5-S1: Type 1 endplate changes with an e xtruded disk of approximately 7-8 mm centrally and to th e left. Moderate central left canal and left lateral recess compr omise. Question S1 symptomatology more so to the left. CONCLUSION: 1. Single level desiccated disk at L5-S 1 with an extruded disk centrally and to the left with mode rate central and left canal and left lateral recess compromise . 2. There is an incidental neuroepitheli al cyst identified in the midline T2 sagittal views at S3 m easuring a centimeter. [id number]/cs Dictating BRANDAN MOORE III Deacon Levine MD RAD MRI documented in this encounter Visit Diagnoses Not on filedocumented in this encounter Care Teams Senior Accounting Manager Relationship Specialty Start Date End Date Unassigned, Provider PCP - General 12/26/00 04/14/[address] [place] [address] documented as of this encounter
--- OUTSIDE RECORDS SUMMARY | 2022-07-05 15:53 | XMS_ITS | Encounter Summary ---
:1970 Author Organization [facility] Address [address] [place] [address] Care Team Providers Name Role Phone Unassigned, Provider Primary Care Provider Unavailable Encounter Details Date Type Department Care Team Description 01/05/2011 PN Conversion Only CONVERSION CONVERSION Social History Tobacco Use Types Packs/Day Years Used Date Smoking Tobacco: Never Assessed Sex Assigned at Date Recorded Not on file documented as of this encounter Plan of Treatment Not on filedocumented as of this encounter Visit Diagnoses Not on filedocumented in this encounter Care Teams Alumina Refinery Operator Relationship Specialty Start Date End Date Unassigned, Provider PCP - General 12/26/00 04/14/[address] [place] [address] documented as of this encounter
--- OUTSIDE RECORDS SUMMARY | 2022-07-05 15:53 | XMS_ITS | Encounter Summary ---
:1970 Author Organization [facility] Address [address], [place] [address] Care Team Providers Name Role Phone Pcp, Pt Declines MD Primary Care Provider Reason for Visit Reason Comments Questions Encounter Details Date Type Department Care Team Description 05/19/2014 Telephone [facility] Brenda Rodríguez PA-C Questions [address] [place], [place] [address] [place] [address] [phone] (Wo rk) Social History Tobacco Use Types Packs/Day Years Used Date Smoking Tobacco: Never Assessed Sex Assigned at Date Recorded Not on file documented as of this encounter Nursing Notes Essence Aguirre RN - 05/19/2014 4:55 PM CDT Patient had steroid injection to her left foot on 04/16/2014 for a Welch's neuroma. She called to report she had good results from the injection until now. The pain has returned. She is having pain with just everyday activity. Discussed with Brenda Rodríguez PA-C who advised the patient to make an appointment with either her to discuss orthotics which may or may not help with the pain or with Dr. Roblero to discuss surgery. She will think about her options and call back for an appointment. documented in this encounter Plan of Treatment Not on filedocumented as of this encounter Visit Diagnoses Not on filedocumented in this encounter Care Teams Sales Support Technician Relationship Specialty Start Date End Date Pcp, Praveen Sigala MD PCP - General 04/15/14 [place] [address] documented as of this encounter
--- OUTSIDE RECORDS SUMMARY | 2022-07-05 15:53 | XMS_ITS | Encounter Summary ---
:1970 Author Organization [facility] Address [address], [place] [address] Care Team Providers Name Role Phone Pcp, Pt Declines MD Primary Care Provider Reason for Visit Reason Comments Foot Pain Encounter Details Date Type Department Care Team Description 04/16/2014 Surgical Consult [facility] Brenda Rodríguez's neuroma of ALFREDO Mcdaniel PA-C left foot (Primary [address] [facility] [place] [place], [place] [address] [address] [place], [place] [phone] Social History Tobacco Use Types Packs/Day Years Used Date Smoking Tobacco: Never Assessed Sex Assigned at Date Recorded Not on file documented as of this encounter Last Filed Vital Signs Vital Sign Reading Time Taken Comments Blood Pressure - - Pulse - - Temperature - - Respiratory Rate - - Oxygen Saturation - - Inhaled Oxygen Concentration - - Weight 69.3 kg (152 lb 11.2 oz) 04/16/2014 11:35 AM CDT Height 160 cm (5' 3) 04/16/2014 11:35 AM CDT Body Mass Index 27.05 04/16/2014 11:35 AM CDT documented in this encounter Patient Instructions Patient InstructionsShara Simpson MA - 04/16/2014 3:04 PM CDT Brenda Rodríguez PA-C Foot [facility] Ankle Orthopedics Nurses: Please contact [facility] Nurse Line for all medical related questions at [phone] Medication Requests: Prescriptions are not filled on Weekends or on Weekdays after 3:00PM For all medication refills you may request a refill using MyChart or contact your Pharmacy. Melissa received an injection to her left foot, she will follow up as needed. documented in this encounter Progress Notes Brenda Rodríguez - 04/16/2014 5:05 PM CDT Consultation note dictated Brenda Rodríguez - 04/16/2014 5:04 PM CDT Progress Notes signed by Brenda Rodríguez PA-C at 04/21/14 0749 Author: Brenda Rodríguez PA-C Service: (none) Author Type: Physician Transformation Coach Filed: 04/21/14 0749 Note Time: 04/18/14 1110 Status: Signed Manager Report: Brenda Rodríguez PA-C (Physician Transformation Coach) NAME: SHEKHAR PICKETT MR#: [id number] CSN: [id number] AUTHENTICATING CLINICIAN: Brenda Rodríguez PA-C CONFIRM #: [id number] LOC: 711 CLINIC PROGRESS NOTE DATE OF VISIT: 04/16/2014 : 1970 REASON FOR VISIT: Left foot base of 3rd and 4th toe pain. HPI: Ms. Pickett is a very pleasant 43-year-old female who presents in consultation for evaluation of plantar forefoot pain localized to the inner metatarsal space of the 3rd and 4th toes with radiation ofnumbness and tingling and pain into the 3rd and 4th toes. She also appreciates a pop with ambulation. Symptoms have been getting progressively worse and exacerbated with ambulation or if she were to go up on her toes. The symptoms have been present for the last 2 months. Treatment has consisted of ibuprofen, shoe modification, rest and ice without relief. Patient offers no other issues. REVIEW OF SYSTEMS: A 15 point is negative with the exception of what is noted in the HPI as well as on the intake form. PAST MEDICAL HISTORY: None. SURGICAL HISTORY: Spinal fusion. MEDICATIONS: Levothyroxine and Celexa. ADR/ALLERGIES: None. SOCIAL HISTORY: She is . Lives at home with her and 2 children. 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 She denies smoking cigarettes, occasionally consumes alcohol. Denies illicit drug use. FAMILY HISTORY: Denies bleeding and/or clotting disorders or difficulty with anesthesia. PHYSICAL EXAM: Height is 63 inches. Weight is 152.7 pounds. GENERAL: Sitting on the examining table in no apparent distress. Is pleasant and cooperative during the exam. SKIN: No areas of erythema, edema, or ecchymoses noted. MUSCULOSKELETAL: I do appreciate a positive Jean's click into the 3rd IMS. I do not appreciate that she is tender to palpation to the dorsum or plantar MTPJs of the 3rd or 4th joints, and pain is notelicited with range of motion of these joints. I do not appreciate any other areas of tenderness to palpation of bony nor soft tissue structures. NEUROVASCULAR: Pedal pulses are palpable and sensation is grossly intact. IMAGING: No imaging obtained. ASSESSMENT: Third IMS Welch's neuroma, left. PLAN: I discussed the patient's diagnoses with her and how it relates to her symptomatology. We discussed her options and giving consideration that she has failed symptomatic treatment and shoe modification and symptoms are worsening, I recommend a steroid injection. Patient was agreeable to this. Therefore, I proceeded to prep the skin of the dorsal aspect of the foot overlying the 3rd intermetatarsal space just proximal of the 3rd and 4th metatarsal heads. I injected 10 mg of Kenalog mixed with 0.5% Marcaine plain. The patient tolerated the procedure well, and she was educated on a steroid flare. If the patient does not notice improvement in 2 weeks, then I would like her to contact me to let me know,and at that time I may refer her to Dr. Roblero for further evaluation and surgical discussion as I did briefly discuss this option with the patient as well. I would like her to pay special attention to the results that she gains from the Marcaine as this will be utilized as a diagnostic tool as well. The patient asked appropriate questions, which I answered to her satisfaction, and she will be on a p.r.n. basis. RUBY:MARIKA C: R:04/16/14 17:12 CONFIRM#:[id number] documented in this encounter Plan of Treatment Not on filedocumented as of this encounter Visit Diagnoses Diagnosis Welch's neuroma of left foot - Primary documented in this encounter Care Teams Supervisor Wood Crew Relationship Specialty Start Date End Date Pcp, Praveen Sigala MD PCP - General 04/15/14 [place] [address] documented as of this encounter
--- OUTSIDE RECORDS SUMMARY | 2022-07-05 15:53 | XMS_ITS | Encounter Summary ---
:1970 Author Organization [facility] Address [address], [place] [address] Care Team Providers Name Role Phone Unassigned, Provider Primary Care Provider Unavailable Encounter Details Date Type Department Care Team Description 04/18/2007 Office Visit [facility] Jose J Cortes MD [address] [facility] [address] [facility] [place], [place] [address] [address] [place], [place] [address] (Wo rk) Social History Tobacco Use Types Packs/Day Years Used Date Smoking Tobacco: Never Assessed Sex Assigned at Date Recorded Not on file documented as of this encounter Progress Notes Jose J Cortes MD - 04/18/2007 12:01 AM CDT Progress Notes signed by Jose J Cortes MD at 04/25/07 0801 Author: Jose J Cortes MD Service: (none) Author Type: Physician Filed: 12/24/107 Note Time: 04/18/07 0001 Status: Signed Superintendent Drilling: Jose J Cortes MD (Physician) NAME: SHEKHAR PICKETT MR#: [id number] ACCT: VISIT: [id number] DICTATING CLINICIAN: JOSE J CORTES MD JOB: [id number] LOC: 3716 CLINIC PROGRESS NOTE DATE OF VISIT: 04/18/2007 : 1970. SUBJECTIVE: Shekhar is a very pleasant 29-year-old woman who I saw last July with low back and radicular leg pain. She had a series of epidural steroid injections with partial relief of her pain. She underwent a course of physical therapy at [facility]. She states that she felt really quite well at the completion of therapy, but within a few days of completing therapy, her back pain started to hurt again. She now comes in because of persisting low back pain. Her pain is aggravated by prolonged sitting at her work and improved with getting up and walking around. She is no longer having any radicular leg symptoms at this time. The pain is primarily in the lower back. OBJECTIVE: ASSESSMENT: Low back pain. PLAN: I had a long chat today with Shekhar regarding her options. Her last MRI was 1 year ago. I think with the aggravation of her symptoms, it would be prudent to obtain an updated MRI. She will obtain that and see me following. FINAL ASSESSMENT: Low back pain. DAA:[id number] C: 04/24/07 13:18 DOCUMENT: [id number] documented in this encounter Plan of Treatment Not on filedocumented as of this encounter Visit Diagnoses Not on filedocumented in this encounter Care Teams Timber Killer Relationship Specialty Start Date End Date Unassigned, Provider PCP - General 12/26/00 04/14/[address] [place] [address] documented as of this encounter
--- OUTSIDE RECORDS SUMMARY | 2022-07-05 15:53 | XMS_ITS | Encounter Summary ---
:1970 Author Organization [facility] Address [address], [place] [address] Care Team Providers Name Role Phone PcpPraveen MD Primary Care Provider Encounter Details Date Type Department Care Team Description 07/11/2013 Orders Only [facility] MD Alysia Security Contact Bill [address] [place] [address] Mailstop [id number] [phone] (Wo rk) Social History Tobacco Use Types Packs/Day Years Used Date Smoking Tobacco: Never Assessed Sex Assigned at Date Recorded Not on file documented as of this encounter Plan of Treatment Not on filedocumented as of this encounter Visit Diagnoses Not on filedocumented in this encounter Care Teams Information Systems Security Specialist Relationship Specialty Start Date End Date Praveen Isabel MD PCP - General 04/15/14 [place], [place] [id number] documented as of this encounter
--- OUTSIDE RECORDS SUMMARY | 2022-07-05 15:53 | XMS_ITS | Encounter Summary ---
:1970 Author Organization [facility] Address [address] [place] [address] Care Team Providers Name Role Phone Unassigned, Provider Primary Care Provider Unavailable Encounter Details Date Type Department Care Team Description 08/07/2006 PN Conversion Only [facility] [address] [place], [place] [address] Social History Tobacco Use Types Packs/Day Years Used Date Smoking Tobacco: Never Assessed Sex Assigned at Date Recorded Not on file documented as of this encounter Plan of Treatment Not on filedocumented as of this encounter Procedures Procedure Name Priority Date/Time Associated Comments Diagnosis OSWALDO EPIDURAL INJECTION Routine 08/07/2006 9:27 AM Results for this TRANFORAMINAL LUMBAR JOINER HELPER procedu re are in SACRAL the results section. documented in this encounter Results OSWALDO Epidural Injection Tranforaminal Lumbar Sacral (08/07/2006 9:27 AM JOINER HELPER) Anatomical Region Laterality Modality Spine, L-Spine Other Specimen (Source) Anatomical Location Collection Method / Collectio n Time Received Time / Laterality Volume Narrative 08/07/2006 9:27 AM JOINER HELPER This is a transforaminal epidural steroid injection on the right at L5-S1. HISTORY: ??Back pain with herniated disk and radicular symptoms. Patient consented. ??Under radiographic and fluoroscopic guidance, a 22-gauge spinal needle was formed in vivian ce in the anterior epidural space on the right at L5-S1. ??0.5 mL of Omnipaque 300 was instilled. Epidurogram performed. ??Post epidurogra m 2 mL of lidocaine 1% and 2 mL Celestone injected. Preprocedure pain level described at 6 a nd postprocedure pain level described at 0. CONCLUSION: ??Successful transforaminal epidural steroid injection on the right at L5-S1 with positive concord ance. [id number]/cs Dictating BRANDAN MOORE III Procedure Note Brandan Phillips MD - 11/04/2016Formatti ng of this note might be different from the original. This is a transforaminal epidural steroi d injection on the right at L5-S1. HISTORY: Back pain with herniated disk a nd radicular symptoms. Patient consented. Under radiographic an d fluoroscopic guidance, a 22-gauge spinal needle was formed in vivian ce in the anterior epidural space on the right at L5-S1. 0.5 mL of O mnipaque 300 was instilled. Epidurogram performed. Post epidurogram 2 mL of lidocaine 1% and 2 mL Celestone injected. Preprocedure pain level described at 6 a nd postprocedure pain level described at 0. CONCLUSION: Successful transforaminal ep idural steroid injection on the right at L5-S1 with positive concord ance. [id number]/cs Dictating BRANDAN MOORE III Deacon Levine MD RAD CO documented in this encounter Visit Diagnoses Not on filedocumented in this encounter Care Teams Protein Chemist Relationship Specialty Start Date End Date Unassigned, Provider PCP - General 12/26/00 04/14/[address] [place] [address] documented as of this encounter
--- OUTSIDE RECORDS SUMMARY | 2022-07-05 15:53 | XMS_ITS | Encounter Summary ---
:1970 [address] [facility] Address [address], [place] [address] Care Team Providers Name Role Phone Unassigned, Provider Primary Care Provider Unavailable Encounter Details Date Type Department Care Team Description 04/27/2010 PN Conversion Only [facility] [address] [facility] [place] [address] Social History Tobacco Use Types Packs/Day Years Used Date Smoking Tobacco: Never Assessed Sex Assigned at Date Recorded Not on file documented as of this encounter Plan of Treatment Not on filedocumented as of this encounter Visit Diagnoses Not on filedocumented in this encounter Care Teams Customer Sales Consultant Relationship Specialty Start Date End Date Unassigned, Provider PCP - General 12/26/00 04/14/[address] [place] [address] documented as of this encounter
--- OUTSIDE RECORDS SUMMARY | 2022-07-05 15:53 | XMS_ITS | Encounter Summary ---
:1970 Author [facility] Address [address], [place] [address] Care Team Providers Name Role Phone Unassigned, Provider Primary Care Provider Unavailable Encounter Details Date Type Department Care Team Description 04/28/2010 Office Visit [facility] Tonia Mcbride MD [address] [place] [address] [address] [place] [address] [phone] (Wo rk) Social History Tobacco Use Types Packs/Day Years Used Date Smoking Tobacco: Never Assessed Sex Assigned at Date Recorded Not on file documented as of this encounter Progress Notes Tonia Mcbride MD - 04/28/2010 12:01 AM CDT Progress Notes signed by Tonia Mcbride MD at 05/12/10 0858 Author: Tonia Mcbride MD Service: (none) Author Type: Physician Filed: 12/26/10 0250 Note Time: 04/28/10 0001 Status: Signed Quarantine Officer: Tonia Mcbride MD (Physician) NAME: MARNI PICKETT VISIT: [id number] DICTATING CLINICIAN: TONIA MCBRIDE MD JOB: [id number] LOC: 0039 CLINIC PROGRESS NOTE DATE OF VISIT: 04/28/2010 : 03/30/1971 SUBJECTIVE: This pleasant patient returns today in followup. I saw her over a year ago. She was scheduled for a MAST decompression instrumentation TLIF on an L5-S1 but, unfortunately, the surgery was scheduled and cancelled secondary to the fact that she was at the current time. She presents today with significant increased back pain, posterior buttock and posterior thigh pain bilaterally increased with prolonged sitting and decreased with change in position. She has had physical therapy, primary care physician, injections, epidural steroid injections, and facet injections in the past which have all failed her. Unfortunately, her quality of life is severely affected, and she wishes to proceed with surgical intervention as she would have previously scheduled which was for a MAST TLIF decompression instrumentation fusion at L5-S1. Her VAS score is 6, and her CELSA is 25 with a 50% disability. Her clinical exam has been repeated and mirrors that of her previous evaluation. She has lumbosacral diminished range of motion with flexion and extension. Her neurologic evaluation is normal. Her calves are supple. Her pain is at the lumbosacral junction. She is nontender over the PSIS, SIJs, trochanteric bursa, and gluteal notches. A repeat MRI from 04/2010 shows significant loss of disk space height, diskogenic changes at the L5-S1 level with preserved morphology at L4-5. The facet joints of L4-5 were unremarkable and normal in addition. My recommendation at this point is to proceed with surgery as we previously planned to do such which was a MAST decompression instrumentation fusion TLIF to be performed at the L5-S1 level. We spoke of the risks, benefits, and alternatives to surgery inclusive but not limited to bleeding, infection, dural laceration requiring repair, battered nerve root syndrome, iatrogenic instability, errant screw placement requiring revision surgery, some degenerative changes, position complications, stroke, , clot, and blindness. The patient understands these issues of concern. She has asked that we proceed with surgery as soon as possible and after insurance clearance. DOCUMENT: [id number] documented in this encounter Plan of Treatment Not on filedocumented as of this encounter Visit Diagnoses Not on filedocumented in this encounter Care Teams Processing Analyst Relationship Specialty Start Date End Date Unassigned, Provider PCP - General 12/26/00 04/14/14 [address] [place] [address] documented as of this encounter
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
--- OUTSIDE RECORDS SUMMARY | 2022-07-05 15:53 | XMS_ITS | Encounter Summary ---
:1970 Author Organization [facility] Address [address] [address] Care Team Providers Name Role Phone Unassigned, Provider Primary Care Provider Unavailable Reason for Visit Reason Comments Other Encounter Details Date Type Department Care Team Description 07/31/2007 Telephone [facility] Kasia Zuniga Other [address] [facility] [place], [place] [address] Social History Tobacco Use Types Packs/Day Years Used Date Smoking Tobacco: Never Assessed Sex Assigned at Date Recorded Not on file documented as of this encounter Progress Notes Kasia Zuniga - 07/31/2007 12:53 PM CST Phone Note filed by Kasia Zuniga RN at 12/22/10930 Author: Kasia Zuniga RN Service: (none) Author Type: Registered Nurse Filed: 12/22/10930 Note Time: 07/31/07 1253 Status: Signed Furnace Charger: Kasia Zuniga RN (Registered Nurse) Pt calls to report I'm having trouble controlling my bladder. It's not all the time, just once in awhile. It began this weekend. Pt instructed to go immediately to ED for further assessment. Will f/u with [facility] after, verbalizes understanding. Created on 31Jul2007 12:53pm by KASIA ZUNIGA On 31Jul2007 4:33pm KASIA ZUNIGA wrote: Spoke with pt earlier today, was at ED waiting to be seen. Will f/u with results. On 31Jul2007 5:01pm KASIA ZUNIGA wrote: Pt calls to report The ED took a new MRI and told me I was okay and to f/u with Dr. Ruiz. Appt made to be seen in 2 weeks. Understands to return to ED with any change in bowel or bladder symptoms, change in neurological symptoms or with any other concerning symptoms before appt. Verbalizes understanding. ICIDE APPLICATOR documented in this encounter Plan of Treatment Not on filedocumented as of this encounter Visit Diagnoses Not on filedocumented in this encounter Care Teams Finish Grinder Relationship Specialty Start Date End Date Unassigned, Provider PCP - General 12/26/00 04/14/[address] [place] [address] documented as of this encounter
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
--- OUTSIDE RECORDS SUMMARY | 2022-07-05 15:54 | XMS_ITS ---
:1970 Author Care Team Providers Name Role Phone Natty Diaz Primary Care Provider Unavailable Allergies Code Code System Name Reaction Severity Status Onset NKDA ? Notes: 04/03/2020: Seasonal Allergies 04/03/2020: NO KNOWN DRUG ALLERGIES *Note: 07/25/2019 - Medications Name Status Start Date Stop Date ? ? citalopram 40 mg tablet Active ? Not avai lable clotrimazole-betamethasone 1 %-0.05 % topical cream Active ? Not available APPLY A SMALL AMOUNT TO THE AFFECTED EA R TWICE DAILY FOR 7 DAYS THEN NEEDED FOR ITCHING COVID-19 test specimen collection Completed ? 06/10/2021 TEST DIRECTED famotidine 20 mg tablet Completed ? 05/16/20 22 TAKE 1 TABLET BY MOUTH 2 TIMES DAILY hydrocortisone-acetic acid 1 %-2 % ear drops Active ? Not available 4 DROPS INTO THE RIGHT EAR UP TO 4 TIMES DAILY NEEDED FO R EAR CANAL ECZEMA levothyroxine 25 mcg tablet Active ? Not available methylprednisolone 4 mg tablets in a dose pack Completed ? 05/16/2022 FOLLOW PACKAGE DIRECTIONS ofloxacin 0.3 % ear drops Active ? Not av ailable INSTILL 10 DROPS INTO THE RIGHT EAR IN THE MORNING AND 10 DROPS IN THE EVENING FOR SEVEN DAYS oxycodone 5 mg tablet Completed ? 05/16/2022 trazodone 100 mg tablet Active ? Not avai lable trazodone 50 mg tablet Active ? Not avail able TAKE 0.5-2 TABLETS (25-100 MG) BY MOUTH AT BEDTIME triamcinolone acetonide 0.1 % topical cream Completed ? 02/25/2021 APPLY TO LEG RASH 2 TIMES DAILY NEEDED valacyclovir 1 gram tablet Active ? Not a vailable Problems Name Status Onset Date Source ? Depressive Disorder Active ? History Procedures Date Name Performed by ? 06/26/2014 Operative Procedure on Foot Information not available Notes: *Surgery Date: 06/26/2014 *Note s: Welch's neuroma left foot ? Colposcopy of Cervix Information not wu ilable Notes: *Surgery Date: 1994 ? Dilatation and Curettage NEC with Hyster oscopy NEC Information not available Notes: *Surgery Date: 12/17/08 *Notes: Dr. Dave ? Endometrial Biopsy Information not daphne lerner Notes: *Surgery Date: 11/22, 12/26/19 *Notes: Endometrium, biopsy-Weakly proliferative endometrium. Negative for atypia or malignancy. 12/26/19 Di Notes: 04/13/2020: *Procedure Name: ba ck 04/13/2020: *Procedure Name: Cryo Results Lab Results Date Name Specimen Result Interpretation Description Value Range Status Address ? 02/25/2021 HPV DNA, CERVIX&CERVIX ? HPV negative negative [facility] High-risk High for HPV for HPV [facility] Risk type 16. type 16. Health - Type 16 Lab: [address] [place] ? ? CERVIX&CERVIX ? HPV negative negative Comple [facility] [place] High for HPV for HPV [facility] Risk type 18. type 18. Health - Type 18 Lab: [address], [place] ? ? CERVIX&CERVIX ? HPV negative negative Comple [facility] Other for other for other [facility] [facility] High high risk high risk Heal th - Risk HPV HPV Lab: [address], [place] 02/25/2021 Pap, LB CERVIX&CERVIX ? Case see note ? Com plete [place] Report [facility] - Lab: [address], [place] ? Hemoglobin ? Finger 13.6 g/dL 12.0-15.0 Final [id number] (Hb), stick g/dL ale_burnsv il Fingerstick Hemoglo le: [address] [facility] [address] [place] [address] Past Encounters 05/16/2022 Gynecologic Examination; Anxiety; Admini stration of Influenza Vaccine; Hypothyroidism; Elevated Blood-pressure Reading without Diagnosis of Hypertension; Overweight Natty Diaz MD: [address] [facility] [address] [address], Ph. 06/10/2021 Herpes Zoster; Pain of Breast Monik Pritchett MD: [address], [address], [place] [address], Ph. 02/25/2021 Depressive Disorder; Gynecologic Examina leanna Diaz MD: [address] [facility] [address], [address], [place] [address], Ph. Social History Tobacco Smoking Status Never Smoker Vaccine List Vaccine Type COVID-19 (SARS-COV-2) vaccine, unspecifi ed 01/02/2021 Influenza, injectable, MDCK, preservativ e free, quadrivalent 05/16/2022?0.5 Plan of Care Patient Instructions - Encouraged breast self-awareness and monthly breast exams. - Recommend mammogram annually starting at age 40. - Encouraged regular exercise. - Discussed calcium, vitamin D, and weig ht bearing exercise for bone health. - Discussed osteoporosis screening guide lines. - Recommend colonoscopy starting at age 50. - Encouraged patient to establish care w ith a PCP to manage non-TIMBER SKIDDER concerns if she does not already have one. - Reviewed current cervical cancer elder jimenez guidelines. - Discussed concern with post-menopausal bleeding. Discussed common physical changes and central weight gain. We discussed when treatment is indicated for control of symptoms. Reminders Provider Appointments None recorded. ? ? Lab None recorded. ? ? Referral None recorded. ? ? Procedures None recorded. ? ? Surgeries None recorded. ? ? Imaging None recorded. ? ? Vitals 05/16/2022 04:00PM G_ANNUAL EXAM Height Blood Pressure 5 ft 2 in 138/80 mm[Hg] 06/10/2021 02:00PM G_OFFICE VISIT Height Weight BMI Blood Pressure 5 ft 2 in 145.6 lbs 26.6 kg/m2 100/72 mm[Hg] 02/25/2021 03:00PM G_ANNUAL EXAM Height Weight BMI Blood Pressure 5 ft 2 in 140.2 lbs 25.6 kg/m2 120/78 mm[Hg] 12/26/2019 Height Weight BMI Blood Pressure 5 ft 6.96 in 173.25 lbs 27.13 kg/m2 116/78 mm[Hg] 07/25/2019 Height Weight BMI Blood Pressure 5 ft 6.96 in 167 lbs 26.16 kg/m2 108/70 mm[Hg] 11/22/2018 Height Weight BMI Blood Pressure 5 ft 6.96 in 166 lbs 26.00 kg/m2 128/82 mm[Hg] 03/29/2018 Height Weight BMI Blood Pressure 5 ft 6.96 in 171 lbs 26.78 kg/m2 118/86 mm[Hg] 11/24/2016 Height Weight BMI Blood Pressure 5 ft 6.96 in 157.81 lbs 24.72 kg/m2 114/76 mm[Hg] 09/10/2015 Height Weight BMI Blood Pressure 5 ft 6.96 in 160 lbs 25.06 kg/m2 108/70 mm[Hg] 07/21/2014 Height Weight BMI Blood Pressure 5 ft 6.96 in 154 lbs 24.12 kg/m2 118/80 mm[Hg] 07/11/2013 Height Weight BMI Blood Pressure 5 ft 6.96 in 151.13 lbs 23.67 kg/m2 102/78 mm[Hg] 05/17/2012 Height Weight BMI Blood Pressure 5 ft 6.96 in 146 lbs 22.87 kg/m2 114/68 mm[Hg] 10/06/2010 Height Weight BMI Blood Pressure 5 ft 6.96 in 151.25 lbs 23.69 kg/m2 110/76 mm[Hg] 12/31/2009 Height Weight BMI Blood Pressure 5 ft 6.96 in 140 lbs 21.93 kg/m2 106/64 mm[Hg]
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
--- OUTSIDE RECORDS SUMMARY | 2022-07-05 15:54 | XMS_ITS | Encounter Summary ---
:1970 Author Organization [facility] Address [address], [place] [address] Care Team Providers Name Role Phone Unassigned, Provider Primary Care Provider Unavailable Encounter Details Date Type Department Care Team Description 07/25/2006 PN Conversion Only [facility] [address] [place] [address] Social History Tobacco Use Types Packs/Day Years Used Date Smoking Tobacco: Never Assessed Sex Assigned at Date Recorded Not on file documented as of this encounter Plan of Treatment Not on filedocumented as of this encounter Visit Diagnoses Not on filedocumented in this encounter Care Teams Clam Dredge Boat Captain Relationship Specialty Start Date End Date Unassigned, Provider PCP - General 12/26/00 04/14/[address] [place] [id number] documented as of this encounter
--- OUTSIDE RECORDS SUMMARY | 2022-07-05 15:54 | XMS_ITS | Encounter Summary ---
:1970 Author Organization [facility] Address [address], [place] [address] Care Team Providers Name Role Phone Unassigned, Provider Primary Care Provider Unavailable Encounter Details Date Type Department Care Team Description 05/23/2006 PN Conversion Only [facility] [address] [facility] [place] [address] Social History Tobacco Use Types Packs/Day Years Used Date Smoking Tobacco: Never Assessed Sex Assigned at Date Recorded Not on file documented as of this encounter Plan of Treatment Not on filedocumented as of this encounter Visit Diagnoses Not on filedocumented in this encounter Care Teams Pony Worker Relationship Specialty Start Date End Date Unassigned, Provider PCP - General 12/26/00 04/14/[address] [place] [address] documented as of this encounter
--- OUTSIDE RECORDS SUMMARY | 2022-07-05 15:54 | XMS_ITS | Encounter Summary ---
:1970 Author Organization [facility] Address [address], [place] [address] Care Team Providers Name Role Phone Unassigned, Provider Primary Care Provider Unavailable Encounter Details Date Type Department Care Team Description 07/28/2006 PN Conversion Only [facility] [address] [facility] [address] Social History Tobacco Use Types Packs/Day Years Used Date Smoking Tobacco: Never Assessed Sex Assigned at Date Recorded Not on file documented as of this encounter Plan of Treatment Not on filedocumented as of this encounter Visit Diagnoses Not on filedocumented in this encounter Care Teams Bush Hog Operator Relationship Specialty Start Date End Date Unassigned, Provider PCP - General 12/26/00 04/14/[address] [place] [address] documented as of this encounter
--- OUTSIDE RECORDS SUMMARY | 2022-07-05 15:54 | XMS_ITS | Encounter Summary ---
:1970 Author Reason for Visit *ANNUAL EXAM 40 - 64 POSTMENOPAUSAL Assessment and Plan 1. Gynecologic examination - due for mammo - pap last done 02/25/21 (neg/neg) 2. Anxiety - trazodone rx'd by PCP - accepts [facility] [place] Supervisor referral ? citalopram 40 mg tablet ? behavioral health referral - Patient agrees to be contacted by the [facility]ative Care team and agrees to co mplete initial and additional assessments as indicated. Patient is aware that usual c o-pays and/or cost-sharing will apply to the service being delivered. 3. Administration of influenza vaccine ? Flucelvax Quad [id number] (PF) 60 mcg (15 mcg x 4)/0.5 mL IM syringe 4. Hypothyroidism - managed by PCP, follow up as directed 5. Elevated blood-pressure reading with out diagnosis of hypertension - discussed following up w/ PCP when se es for thyroid management 6. Overweight - diet and exercise discussed - encouraged small goal setting Discussion Note: None recorded.Patient educational handouts: No information available. Plan of Care Patient Instructions - Encouraged breast self-awareness and monthly breast exams. - Recommend mammogram annually starting at age 40. - Encouraged regular exercise. - Discussed calcium, vitamin D, and weig ht bearing exercise for bone health. - Discussed osteoporosis screening guide lines. - Recommend colonoscopy starting at age 50. 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 - Reviewed current cervical cancer elder jimenez guidelines. - Discussed concern with post-menopausal bleeding. Discussed common physical changes and central weight gain. We discussed when treatment is indicated for control of symptoms. Reminders Provider Appointments None recorded. ? ? Lab None recorded. ? ? 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 ? ? Surgeries None recorded. ? ? Imaging None recorded. ? ? Medications Name Start Date ? ? citalopram 40 mg tablet ? TAKE 1 TABLET BY MOUTH EVERY DAY clotrimazole-betamethasone 1 %-0.05 % topical cream ? APPLY A SMALL AMOUNT TO THE AFFECTED EA R TWICE DAILY FOR 7 DAYS THEN NEEDED FOR ITCHING hydrocortisone-acetic acid 1 %-2 % ear drops ? 4 DROPS INTO THE RIGHT EAR UP TO 4 TIMES DAILY NEE DED FOR EAR CANAL ECZEMA levothyroxine 25 mcg tablet ? TAKE 1 TABLET BY MOUTH EVERY DAY ofloxacin 0.3 % ear drops ? INSTILL 10 DROPS INTO THE RIGHT EAR IN THE MORNING AND 10 DROPS IN THE EVENING FOR SEVEN DAYS trazodone 100 mg tablet ? TAKE 1 TABLET BY MOUTH AT BEDTIME trazodone 50 mg tablet ? TAKE 0.5-2 TABLETS (25-100 MG) BY MOUTH AT BEDTIME valacyclovir 1 gram tablet ? Take 1 tablet every 8 hours by oral route for 7 days. Medications Administered None recorded. Vitals Height Blood Pressure 5 ft 2 in 138/80 mm[Hg] Results Lab Results None recorded. Allergies Code Code System Name Reaction Severity Onset NKDA ? ? ? Notes: 04/03/2020: Seasonal Allergies 04/03/2020: NO KNOWN DRUG ALLERGIES *Note: 07/25/2019 - Problems Name Status Onset Date Source ? Depressive Disorder Active ? History Procedures Date Name Performed by ? 06/26/2014 Operative Procedure on Foot Information not available Notes: *Surgery Date: 06/26/2014 *Note s: Welch's neuroma left foot ? Colposcopy of Cervix Information not wu broussard Notes: *Surgery Date: 1994 ? Dilatation and Curettage NEC with Hyster oscopy NEC Information not available Notes: *Surgery Date: 12/17/08 *Notes: Dr. Dave ? Endometrial Biopsy Information not daphne lerner Notes: *Surgery Date: 11/22, 12/26/19 *Notes: Endometrium, biopsy-Weakly proliferative endometrium. Negative for atypia or malignancy. 12/26/19 Di Notes: 04/13/2020: *Procedure Name: ba ck 04/13/2020: *Procedure Name: Cryo Vaccine List Vaccine Type COVID-19 (SARS-COV-2) vaccine, unspecifi ed 01/02/2021 Influenza, injectable, MDCK, preservativ e free, quadrivalent 05/16/2022?0.5 Social History Tobacco Smoking Status Never Smoker What is your level of alcohol None consumption? Children's names/ Adan Fritz Gabrielle Which illicit or recreational Denies illicit substance drugs have you used? abuse Spouse/Partners Name Ari What is your level of caffeine None consumption? Do you use any illicit or N recreational drugs? What is your exercise level? Moderate Notes: Mo derate Amount of Exercise (1-3 leander es weekly) What is your relationship status? Family History Relation Problem Onset Age of Age Notes Father Benign essential (No N/A Hypertensio n hypertension Information) Mother Family history of 47 N/A Cancer Clara ast breast cancer Mother Malignant tumor of 50 N/A (No Notes ) breast Maternal Grandmother Family history of (No N/A Ca ncer Breast breast cancer Information) Maternal Grandmother Malignant tumor of 60 65 ( No Notes) breast Functional Status Unknown. Past Encounters 05/16/2022 Gynecologic Examination; Anxiety; Admini stration of Influenza Vaccine; Hypothyroidism; Elevated Blood-pressure Reading without Diagnosis of Hypertension; Overweight Natty Diaz MD: [address] [facility], [address], [place] [address], Ph. History of Present Illness ? Annual Postmenopausal (Premi er) Reported By: Patient HPI: Patient Relationship To Prac afia: established patient. Current Medical History: active medical prob lems stable. Relevant Family History: no family history of ovarian ca ncer, no family history of uterine cancer, no family history of colon c ancer, no family history of blood clots/DVT, family history of breast can cer. Menopausal Symptoms: not present. HRT: never on HRT. Vaginal Bleedi ng: no. Sexually Active: Yes: spouse. STI Screen: declines. Health/Pre vention: Exercise: no, Adequate Calcium Intake: yes, Safe at home: y es, Mental Health Screen: normal. Mammogram: due. Pap Smear +/- HPV Cotes ting: up-to-date. Thyroid/Lipid Screening: up-to-date. Colonoscopy: up- to-date. Bone Density Study: not applicable. Patient has: Primary Care Ph ysician: yes Note: <div>Seen for LC.</div><div>
</div><div>History of anxiety, wondering if citalopram is working well enough for her. Potentially interested in changing medications but wants to wait for now to see if things improve given many changes to schedule with fall. Open to counseling.</div><div>
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 Reported By: Patient Constitutional: Constitutional: no significa nt weight loss Skin: Skin: no abnormal moles, no rashes Respiratory: Respiratory: no dyspnea / sh ortness of breath, no cough, no wheezing Cardiovascular: Cardiovascular: no chest chantel n, no palpitations Gastrointestinal: Gastrointestinal: no nausea, no vomiting, no diarrhea, no constipation, no rectal blee ding; no hemorrhoids Genitourinary: Genitourinary: no trouble ur inating, no incontinence; no frequency, no urgency, no dysuria Neurological: Neurologic: no headaches, no LOC, no numbness; no tingling Psychological: Psych: no depression; Anxiet y Notes: Denies breast lumps, nipple discharge, breast skin changes, and redness of breasts.Denies Ex cessive thirst, excessive hair growth, easy bleeding, lymph node en largement or tenderness Physical Exam ? Annual Exam ([facility]) Reported By: Patient Constitutional: *General Appearance: healthy -appearing, overweight Head: Head: normocephalic Neck: *Thyroid: no enlargement, no nodules, non-tender Lymph Nodes: *Palpation: normal Cardiovascular: *Auscultation: RRR, no murmu r. *Peripheral Vascular: no varicosities, no edema Lungs: *Respiratory Effort: no acce ssory muscle usage, no intercostal retractions. *Auscultation: clear to auscultation, no wheezing, no rales/crackles, no rhonch i. Inspection: normal, normal respiratory rate *Breast: Bilateral: no skin changes, nipple appearance: normal, no abnormal nipple secretions, no tenderness, no masses palpable. Right Breast: normal. Left B reast: normal Abdomen: *Inspection/Palpation/Auscul tation: non-distended, no tenderness, no rebound, no g uarding, soft, no hepatomegaly, no splenomegaly. *Hernia: none palpated Back: Appearance normal Female Genitalia: Vulva: no masses, no atrophy , no lesions. Mons: normal, no erythema, no excoriation, no atrophy, no lesions, no vesicles/ ulcers, no masses, no swelli ng, no tenderness. Labia Majora: normal, no erythema, no exco riation, no atrophy, no discoloration, no lesions, n o vesicles/ ulcers, no masses, no swelling, no tenderness. Lab ia Minora: normal, no erythema, no excoriation, no atrophy, no discoloration, no lesions, no vesicles, no masses, no swel ling, no tenderness. Introitus: normal. Bartholin's Gland: n ormal. *Vagina: normal, no discharge, no blood present, no erythema, no atrophy, no lesions, no ulcers, no swell ing, no masses, no tenderness, no prolapse. *Cervix: grossly n ormal, no lesions, no discharge, no bleeding, no cervical motion tenderness. *Uterus: normal size, normal contour, midline, no uterine prolapse, mobile, non-tender. *Urethral Meatus / Urethra: normal meatus, no discharge, well supported ur ethra, no masses, no tenderness. *Bladder: non-distended, no palpable mass, non-tender. *Adnexa/Parametria: no mass palpable, no tenderness Rectum: *Anus & Perineum: normal per ianal skin, no anal fissure, no hemorrhoids, normal perineum Extremities: Legs: normal. Arms: normal Skin: *Appearance: no rashes, no l esions Neurological System: Impressions: motor: no defic its, sensory: no deficits Psychiatric: *Orientation: to person, to place, to time. *Mood and Affect: active and alert, normal moo d, normal affect
--- OUTSIDE RECORDS SUMMARY | 2022-07-05 15:55 | XMS_ITS | Encounter Summary ---
:1970 Author Organization [facility] Address [address], [place] [address] Care Team Providers Name Role Phone Unassigned, Provider Primary Care Provider Unavailable Encounter Details Date Type Department Care Team Description 04/25/2007 Office Visit [facility] Jose J Cortes MD [address] [facility] [address] [facility] [place], [place] [address] [place] [address] [phone] (Wo rk) Social History Tobacco Use Types Packs/Day Years Used Date Smoking Tobacco: Never Assessed Sex Assigned at Date Recorded Not on file documented as of this encounter Progress Notes Jose J Cortes MD - 04/25/2007 12:01 AM CDT Progress Notes signed by Jose J Cortes MD at 04/27/07 0754 Author: Jose J Cortes MD Service: (none) Author Type: Physician Filed: 12/24/10 2236 Note Time: 04/25/07 0001 Status: Signed Pantograph Watcher: Jose J Cortes MD (Physician) NAME: SHEKHAR PICKETT MR#: [id number] ACCT: [id number] VISIT: [id number] DICTATING CLINICIAN: JOSE J CORTES MD JOB: [id number] LOC: 3711 CLINIC PROGRESS NOTE DATE OF VISIT: 04/25/2007 SUBJECTIVE: : 1970. CHIEF COMPLAINT: Followup, low back pain. Shekhar is seen today for followup review of her ongoing low back pain. She recently underwent repeat MRI imaging. Essentially, her MRI is unchanged from a year ago. She shows a fairly large (8 mm) central disk extrusion with moderate canal and left lateral recess compromise. As before, Shekhar's symptoms are all low back pain with no radicular component at this time. In the past, she has had radicular pain but none now for awhile. Also in the past, she has had several epidural steroid injections with, at best, mixed benefit. She has had a total of 3 injections in the past, 2 of which were of virtually no benefit, and 1 was only of slight benefit. I reviewed her MRI findings with her. Her symptoms have been present for well over a year and continue to be problematic. I would like her to get a surgical consultation with Dr. Ender Ruiz. I am curious as to whether he feels he can get by with a simple diskectomy or whether he feels she would need a fusion surgery. We will see what he has to say. OBJECTIVE: ASSESSMENT: Low back pain secondary to L5-S1 disk herniation. PLAN: See above. DAA:[id number] C: 04/26/07 10:09 DOCUMENT: [id number] documented in this encounter Plan of Treatment Not on filedocumented as of this encounter Visit Diagnoses Not on filedocumented in this encounter Care Teams Director Biology Relationship Specialty Start Date End Date Unassigned, Provider PCP - General 12/26/00 04/14/[address] [place] [id number] documented as of this encounter
--- OUTSIDE RECORDS SUMMARY | 2022-07-05 15:56 | XMS_ITS | Encounter Summary ---
:1970 Author Reason for Visit *ANNUAL EXAM 40 - 64 POSTMENOPAUSAL Assessment and Plan 1. Gynecologic examination - due for mammo - pap last done 02/25/21 (neg/neg) 2. Anxiety - trazodone rx'd by PCP - accepts Mind [employer] Manager referral ? citalopram 40 mg tablet ? behavioral health referral - Patient agrees to be contacted by the [facility] Collaborative Care team and agrees to co mplete initial and additional assessments as indicated. Patient is aware that usual c o-pays and/or cost-sharing will apply to the service being delivered. 3. Administration of influenza vaccine ? 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 - Reviewed current cervical cancer elder jimenez guidelines. - Discussed concern with post-menopausal bleeding. Discussed common physical changes and central weight gain. We discussed when treatment is indicated for control of symptoms. Reminders Provider Appointments None recorded. ? ? Lab None recorded. ? ? 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 ? ? [...] of Hypertension; Overweight Natty Diaz MD: [address] [facility], [address], [place] [address], Ph. History of Present Illness ? Annual [...] past 4-5 years).</div> Review of Systems ? 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 Annual Exam ([facility]) Reported By: Patient Constitutional: *General Appearance: healthy [...]
--- OUTSIDE RECORDS SUMMARY | 2022-07-05 15:56 | XMS_ITS ---
[...] HPV DNA, CERVIX&CERVIX ? HPV negative negative [facility] High-risk High for HPV for HPV [facility] Risk type 16. type 16. Health - Type 16 Lab: [address], [place] ? ? CERVIX&CERVIX ? HPV negative negative [facility] [place] High for HPV for HPV [facility] Risk type 18. type 18. Health - Type 18 Lab: [address], [place] ? ? CERVIX&CERVIX ? HPV negative negative Comple [facility] Other for other for other Wilmer rial High high risk high risk Heal th - Risk HPV HPV Lab: [address], [place] 02/25/2021 Pap, [facility] CERVIX&CERVIX ? Case see note ? Com [facility] Report [facility] - Lab: [address], [place] ? Hemoglobin ? Finger 13.6 g/dL 12.0-15.0 Final [id number] (Hb), stick g/dL ale_burnsv il Fingerstick Hemoglo le: [address] [facility] [address] [place] [address] Past Encounters 05/16/2022 Gynecologic Examination; Anxiety; Admini stration of Influenza Vaccine; Hypothyroidism; Elevated Blood-pressure Reading without Diagnosis of Hypertension; Overweight Natty Diaz MD: [address] [facility] [address], [address] [address], Ph. 06/10/2021 Herpes Zoster; Pain of Breast Monik Pritchett MD: [address], [address], [place] [address], Ph. 02/25/2021 Depressive Disorder; Gynecologic Examina leanna Diaz MD: [address] [facility] [address], [address], [place] [address], Ph. 

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
== END 2022-07-05 17:36 | disposition home or self-care (01) ==
PROVIDERS: Emergency Provider Family Medicine
DX: S39.012A Strain of muscle, fascia and tendon of lower back, initial encounter (principal); M54.2 Cervicalgia; M25.519 Pain in unspecified shoulder; Z98.1 Arthrodesis status; V43.52XA Car driver injured in collision with other type car in traffic accident, initial encounter; Y92.410 Unspecified street and highway as the place of occurrence of the external cause
CPT/HCPCS: 71046; 72100; 99284

== ENCOUNTER 2024-06-24 17:25 | Emergency (ER) | payer OTHER, SELFPAY ==
[2024-06-24 17:27] VITALS: BP 146/86; PULSE 65; RESP 16; TEMP 36.2; O2SAT 98; BMI 29.3
--- NOTE | 2024-06-24 17:33 | CRLHL7_ITS ---
For Patients: As a result of the Century Cures Act, medical imaging exams and procedure reports are released immediately into your electronic medical record. You may view this report before your referring provider. If you have questions, please contact your health care provider. INDICATION: Calf pain. TECHNIQUE: Ultrasound venous duplex lower right extremity. Compression venous exam was performed using mccann-scale, color Doppler, and spectral Doppler analysis. COMPARISON: None. FINDINGS: Deep veins: Sonographic imaging demonstrates the right common femoral, deep femoral, superficial femoral, popliteal, posterior tibial and the contralateral left common femoral veins to be fully compressible with normal color Doppler blood flow. Superficial veins: Greater saphenous vein is fully compressible. IMPRESSION: Normal right lower extremity venous ultrasound, no sign of deep venous thrombosis. Dictated by Deep Valdivia MD @ 06/24/2024 6:55:24 PM (Electronically Signed)
--- NOTE | 2024-06-24 17:49 | CRLHL7_ITS ---
For Patients: As a result of the Century Cures Act, medical imaging exams and procedure reports are released immediately into your electronic medical record. You may view this report before your referring provider. If you have questions, please contact your health care provider. INDICATION: Headaches. TECHNIQUE: CT of the head without contrast. Coronal and sagittal reformats are included. COMPARISON: None. FINDINGS: No CT evidence of acute cortical infarct. No loss of holcomb white matter differentiation. No hyperdense vessels to suggest intracranial thrombus. No acute intracranial hemorrhage. No mass effect or midline shift. No hydrocephalus or extra-axial collections. White matter is within normal limits for age. No acute osseous abnormalities. Widespread paranasal sinus mucosal thickening. Normal soft tissues. IMPRESSION: IMPRESSION:1. No CT evidence of acute cortical infarct. No acute intracranial hemorrhage. No other acute intracranial findings. Please note that all CT scans at this facility use dose modulation, iterative reconstruction, and/or weight-based dosing when appropriate to reduce radiation dose to as low as reasonably achievable. Dictated by Neal Zambrano MD @ 06/24/2024 7:03:33 PM (Electronically Signed)
--- OUTSIDE RECORDS SUMMARY | 2024-06-24 18:05 | XMS_ITS | Encounter Summary ---
Author Organization [employer] Address [address] [place] [address] Care Team Providers Care Window Shade Ring Coverer Name Role Phone Pcp, Pt Declines Primary Care Provider [phone] Reason for Visit * Auth/Cert (Routine) Specialty Diagnoses / Procedures Referred By Contac t Referred To Contact Diagnoses Pain, joint, ankle and foot, right Procedures 1st Metatarsophalangeal Joint Fusion Referral ID Status Reason Start Date Expiration Date Visits Re quested Visits Authorized [id number] 1 1 Encounter Details Date Type Department Care Team (Late st Contact Info) Description 11/08/2023 Hospital Encounter [facility] [address] [place] [address] Mitul Sandhu MD [address] [place] [address] Social History Tobacco Use Types Packs/Day Years Used Date Smoking Tobacco: Former Smokeless Tobacco: Never Comments:Quit smokin yr s Alcohol Use Standard Drinks/Week Comments Yes 0 (1 standard drink = 0.6 oz pur e alcohol) social Sex and Gender Information Value Date Recorded Sex Assigned at Not on file Gender Identity Not on file Sexual Orientation Not on file documented as of this encounter Plan of Treatment Not on file documented as of this encounter Visit Diagnoses Diagnosis Pain, joint, ankle and foot, right- Primary documented in this encounter Admitting Diagnoses Diagnosis Pain, joint, ankle and foot, right documented in this encounter Care Teams Window Shade Ring Coverer Relationship Specialty Start Date End Date Pcp, Pt Jovon, [place], [place] [id number] PCP - General 04/15/14 documented as of this encounter
--- OUTSIDE RECORDS SUMMARY | 2024-06-24 18:05 | XMS_ITS | Clinical Summary ---
Author Organization [employer] Address [address] [place] [address] Care Team Providers Care Auto Inspector Name Role Phone Pcp, Pt Declines MD Primary Care Provider [phone] Source Comments You are receiving this document as you are listed as the primary care provider,follow-up provider, or the patient has been referred to you for consultation.This is in compliance with the Medicare and[facility] EHR Incentive Program,which states Providers who transition their patient to another setting of careor provider of care or refers their patient to another provider of care shouldprovide summary care record for each transition of care or referral. [facility] Allergies No known active allergies Medications Medication Sig Dispensed Refills Start Date End Date Status citalopram (AKA CELEXA) 10 MG tablet Take 10 mg by mouth daily (every 24 hours). 04/16/2014 Active ibuprofen (MOTRIN) 200 MG tablet Take 200-400 mg by mouth every 4 hours as needed for Pain. Active Active Problems Problem Noted Date Diagnosed Date Pain, joint, ankle and foot, right 08/03/2023 Hypothyroidism 07/03/2014 Resolved Problems Problem Noted Date Diagnosed Date Resolved Date Bronchitis 07/03/2014 01/01/2015 Immunizations Name Administration Dates Next Due Moderna Monovalent 12+ 01/21/2021,12/24/2020 Social History Tobacco Use Types Packs/Day Years Used Date Smoking Tobacco: Former Smokeless Tobacco: Never Comments:Quit smokin yr s Alcohol Use Standard Drinks/Week Comments Yes 0 (1 standard drink = 0.6 oz pur e alcohol) social Sex and Gender Information Value Date Recorded Sex Assigned at Not on file Gender Identity Not on file Sexual Orientation Not on file Last Filed Vital Signs Vital Sign Reading Time Taken Comments Blood Pressure - - Pulse - - Temperature - - Respiratory Rate - - Oxygen Saturation - - Inhaled Oxygen Concentration - - Weight 74.4 kg (164 lb) 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[employer] Height 157.5 cm (5' 2) 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 Body Mass Index 30 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[employer] Plan of Treatment Health Maintenance Due Date Last Done Comments Colon Cancer Screening Plan Due 1968 Diabetes Screening- (based on age and BMI) 1968 Hep C Screening (Preventive Services) 1968 HIV Screening (Preventive Services) 1984 Adult Preventive Visit 1986 HepB (1) 1987 Cervical Cancer Screening Due 07/12/2013 07/11/2013 Cholesterol 2013 Mammogram 06/17/2023 06/17/2022, 04/05, 10/18/2019, Additional history exists COVID-19 Vaccine ( season) 2024 09/03/2021, 01/21/2021, 01/02/2021, Additional history exists Influenza (#1) 2024 05/16/2022, 1101/2021, 07/03/2020, Additional history exists DTaP/Tdap/Td (3 - Tdap) 07/09/2031 07/09/2021, 12/10 Zoster/Shingles Completed 09/24/2021, 07/09/2021 HepA Aged Out No longer eligi ble based on patient's age to complete this topic Hib Aged Out No longer eligi ble based on patient's age to complete this topic IPV (Polio) Aged Out No longer eligi ble based on patient's age to complete this topic Infant RSV Aged Out No longer eligi ble based on patient's age to complete this topic MCV4 Aged Out No longer eligi ble based on patient's age to complete this topic Pneumococcal Aged Out No longer eligi ble based on patient's age to complete this topic Care Teams Auto Inspector Relationship Specialty Start Date End Date Pcp, [place] [address] PCP - General 04/15/14
--- OUTSIDE RECORDS SUMMARY | 2024-06-24 18:05 | XMS_ITS | Continuity of Care Document ---
Author Organization [facility] Address [address] [place] [address] Phone Care Team Providers Care Shipping Clerk Packing Name Role Phone Christine HANNA, Amir Unavailable Unavailable Allergies, Adverse Reactions, Alerts Substance Reaction Status Criticality No Known Drug Allergies Active No I nformation Medications Medication Instructions Dosage Effective Dates (start - stop) Status Comments Neurontin 300 mg Cap take 1 capsule (300MG) by oral route 3 times every day 300 MG - Active [phone] oxycodone 5 mg Tab take 1 - 2 by Oral route every 4 - 6 1.00-2.00 - Active clinic Procedures Procedure Date Postop followup visit Lumbar spine fusion, posterolateral Lumbar spine fus, pstr intrbdy sngl Decompress lumbar spinalcord seg 2009 Insert spine fixation, posterior 2009 Apply spinal prosthetic device 10 Autograft, spine surgery, local 010 Allograft, spine surg, morselized PA Assist Lumbar spine fusion, posterola teral PA Assist Lumbar spine fus, pstr intrbdy sngl PA Assist Decompress lumbar spinalcord s eg PA Assist Insert spine fixation, posteri or PA Assist Apply spinal prosthetic device Office/outpatient visit,est, mod 2008 X-ray exam lower spine 2-3 views 2008 Office/outpatient visit,est, mod 2007 Advance Directives Directive Yes / No Effective Date File Name No Information Encounters Encounter Description Practice Location Reason(s) For Visit Diagnoses Date Provider Providers Copied on Encounter [facility], [address], [place], [address], [place] tel:[phone] [facility] No Information 3 Mehbod Chelsear. [facility], [address], [place], [place], [id number], [place]. tel:[phone] [facility], [address], [place], [address], [place] tel:[phone] [facility] No Information 0 1 Sara Handley. [facility], [address], [place], [address], [place]. tel:[phone] [facility] [place], [address], [place], [address], [place] tel:[phone] [facility] No Information 1 Sara Handley. [facility], [address], [place], [address], [place]. tel:[phone] Referring Provider: Ender Ruiz, [facility] [address], [place], [address]. tel:[phone] [facility], [address], [place], [address], [place] tel:[phone] [facility] No Information 6 0 Sara Handley. [facility], [address] [place], [address], [place]. tel:[phone] Referring Provider: Ender Ruiz, [facility] [address], [place], [address]. tel:[phone] [facility], [address], [place], [address], [place] tel:[phone] [facility] No Information 1-201 0 Sara Handley. [facility], [place], [address], . tel:[phone] Office/outpa tient visit,est, mod [facility], [address] [facility] [address], [place], [place], [facility], tel:[phone] [facility] No Information 8200 9 Sara Handley. [facility], [address] [place], [address], [place]. tel:[phone] Referring Provider: Ender Ruiz, [facility] [address] [place] [address] , [place], [address]. tel:[phone] Office/outpa tient visit,est, mod [facility] [place], [address] [facility] [address], [place], [address], [place] tel:[phone] [facility] No Information 7200 8 Sara Handley. [facility], [address] [place], [address], [place]. tel:[phone] Referring Provider: STEPHANIE Chen [facility] [place]. tel:[phone] Family History Family Member Type Diagnosis Age At Onset No Information Payers Payer name Insurance type Covered green party ID Julienne ram(s) [employer] [id number] Social History Type Description Quantity Date Captured Comments Sex Female Smoking Status No Information Chief Complaint And Reason For Visit No Information Reason For Referral Reason For Referral No Information History Of Present Illness Encounter Date Complaint History Of Prese nt Illness No Information Functional Status Date Functional Assessmen t No Information Instructions Date Instruction Additional Infor mation No Information Assessments Type Assessment Date No Information Patient Care Teams Name Effective Dates (start - stop) Status Members No Information
--- OUTSIDE RECORDS SUMMARY | 2024-06-24 18:05 | XMS_ITS | Encounter Summary ---
Author Organization [employer] Address [address] [place] [address] Care Team Providers Care Womens Volleyball Coach Name Role Phone PcpPraveen MD Primary Care Provider Encounter Details Date Type Department Care Team (Late st Contact Info) Description 06/11/2014 Orders Only [facility] [address] [place] [address] Keven Roblero, DPM [address] [place], [place] [address] Neuroma of foot Social History Tobacco Use Types Packs/Day Years Used Date Smoking Tobacco: Never Assessed Sex and Gender Information Value Date Recorded [...] hip documented in this encounter Care Teams Womens Volleyball Coach Relationship Specialty Start Date End Date PcpPraveen [place], [place] [address] PCP - General 04/15/14 documented as of this encounter
--- OUTSIDE RECORDS SUMMARY | 2024-06-24 18:06 | XMS_ITS | Referral Summary ---
Author Organization [place] Address [address] [place] [address] Care Team Providers Care Hoop Rolls Operator Name Role Phone Traci Jasmina YOANDY SEAWEED HARVESTER Unavailable [phone] Jasmina Aviles APRN SEAWEED HARVESTER Unavailable [phone] Marcelina Soliman MD Primary Care Provider [phone] Marcelina Soliman MD Unavailable Encounters Date Type Department Care Team Description 06/17/2024 Travel 06/17/2024 11:30 AM CDT Office Visit [address] [phone] Marcelina Soliman MD Nausea (Primary Dx); Hyperlipidemia LDL goal <100 06/16/2024 Travel 05/01/2024 Transcribe Orders GENERIC EXTERNAL DATA DEPARTMENT Monik Pritchett MD Pelvic floor dysfunction (Primary Dx); Disorder of muscle, unspecified 04/23/2024 Travel 04/23/2024 11:30 AM CDT Office Visit [address] [phone] Marcelina Soliman MD Gastroesophageal reflux disease without esophagitis (Primary Dx); Muscle ache; Generalized anxiety disorder; Hyperlipidemia LDL goal <100 04/18/2024 Travel from Last 3 Months Allergies Active Allergy Reactions Criticality Noted Date Comments Venlafaxine Rash High 07/21/2011 Over entire body Medications Medication Sig Dispensed Refills Start Date End Date Status citalopram (CELEXA) 40 MG tablet Take 1 tablet (40 mg) by mouth daily 09/27/2021 Active ondansetron (ZOFRAN) 4 MG tabletIndications :Nausea Take 1 tablet (4 mg) by mouth every 8 hours as needed for nausea. 30 tablet 06/17/2024 Active rosuvastatin (CRESTOR) 20 MG tabletIndications :Hyperlipidemia LDL goal <130 Take 1 tablet (20 mg) by mouth daily 90 tablet 2 01/04/2024 06/17/2024 Discontinued(Th erapy completed (No AVS)) ondansetron (ZOFRAN) 4 MG tablet Take 4 mg by mouth every 8 hours as needed for nausea 02/20/2024 06/17/2024 Discontinued(Re order (No AVS)) Active Problems Problem Noted Date Diagnosed Date Gastroesophageal reflux disease without esophagi tis 04/23/2024 Last Assessment & Plan: Causing cough. Started on PPI with good response. Muscle ache 04/23/2024 Last Assessment & Plan: Pt has been having episodes of muscle aches all over the body, started 3 to 4 months ago, she feels as if she has the flu, with body aches and muscle pain, lasts 2 days then goes away, usually gets it 5 to 6 times then it goes away on it's own. Also noticed numbness episodes, that occurs on the face, and sometimes on the arm, it becomes sensitive and tender to touch, then it goes away in 2 weeks maximum. Exam as above, all normal. Plan: stop ROsuvastatin as symptoms started around the same time, and check CK/TSH today, if normal, and symptoms resolved, then there is no follow up needed, But if symptoms did not improve after stopping Rosuvastatin, pt to call back in 3 to 4 weeks. Hyperlipidemia LDL goal <100 04/23/2024 Last Assessment & Plan: Pt did have very high cholesterol suddenly with normal lipid level aroudn 3 years ago, so I think it is reasonable to stop Rosuvastatin for 3 months then recheck labs to see if these results were accurate. Pt to recheck lipids in 3 months. Generalized anxiety disorder 06/04/2015 Overview: Diagnosis updated by automated process. Provider to review and confirm. Last Assessment & Plan: Anxiety has been controlled on Citalopram. Lichen planus 07/21/2011 Ina's thyroiditis 05/17/2010 Overview: (Problem list name updated by automated process. Provider to review and confirm.) Vitiligo 05/13/2010 DDD (degenerative disc disease), lumbar 07/05/20 07 Overview: L5-s1 Anxiety state 08/11/2003 Overview: Problem list name updated by automated process. Provider to review Resolved Problems Problem Noted Date Diagnosed Date Resolved Date Major depressive disorder, r ecurrent episode, moderate 09/21/2015 04/23/2024 Hypothyroidism 08/09/2010 04/23/2024 CARDIOVASCULAR SCREENING; LD L GOAL LESS THAN 160 07/04/2010 04/23/2024 Depressive disorder 03/08/2010 04/23/20 24 Iron deficiency anemia 02/12/200803/13 Immunizations Name Administration Dates Next Due COVID-19 MONOVALENT 12+ (Pfizer) 01/02/2021 COVID-19 Monovalent 18+ (Moderna) 12/24/2020 COVID-19 Monovalent Booster 18+ (Moderna) 09/03/2021 Influenza (IIV3) PF 05/25/2012,06/02/2011 Influenza Vaccine 18-64 (Flublok) 07/09/2021 Influenza Vaccine >6 months,quad, PF ,06/20/2019,06/02/2016,2012 Influenza,INJ,MDCK,PF,Quad >6mo(Flucelvax) 05/16/2022 TDAP (Adacel,Boostrix) 07/09/2021 TDAP Vaccine (Adacel) 12/10/2008 Zoster recombinant adjuvante d (SHINGRIX) 09/24/2021,07/09/2021 Social History Tobacco Use Types Packs/Day Years Used Date Smoking Tobacco: Former Cigarettes 0.5 5 1 993 - 1998 Smokeless Tobacco: Never Tobacco Cessation:Counseling Given: No Comments:Quit in 02/1998 Alcohol Use Standard Drinks/Week Comments Yes 0 (1 standard drink = 0.6 oz pur e alcohol) once in awhile PHQ-2 Answer Date Recorded PHQ-2 Score 0 06/17/2024 Adolescent Education Answer Date Record ed Getting School Help Needed Not on file 06/18 Interpersonal Safety Answer Date Record ed Do you feel physically and e motionally safe where you currently live? Yes 04/23/2024 Within the past 12 months, h ave you been hit, slapped, kicked or otherwise physically hurt by someone? No 04/23/2024 Within the past 12 months, h ave you been humiliated or emotionally abused in other ways by your partner or ex-partner? No 04/23/2024 Sex and Gender Information Value Date Recorded Sex Assigned at Female 04/14/2021 11:29 AM CDT Gender Identity Female 04/14/2021 11:29 AM CDT Sexual Orientation Straight 04/14/2021 11 :29 AM CDT Travel History Travel Start Travel End [place] 05/30/2024 06/02/2024 [facility] 05/23/2024 05/30/2024 Last Filed Vital Signs Vital Sign Reading Time Taken Comments Blood Pressure 123/81 06/17/2024 11:15 AM CDT Pulse 80 06/17/2024 11:15 AM CDT Temperature 37.1 ??C (98.7 ??F) 06/17/2024 11:15 AM C DT Respiratory Rate 14 06/17/2024 11:15 AM CDT Oxygen Saturation 100% 06/17/2024 11:15 AM CDT Inhaled Oxygen Concentration - - Weight 73.5 kg (162 lb) 06/17/2024 11:15 AM CDT Height 157.5 cm (5' 2) 06/17/2024 11:15 AM CDT Body Mass Index 29.63 06/17/2024 11:15 AM CDT Plan of Treatment Not on file Procedures Procedure Name Priority Date/Time Associated Diagnosis Comments LIPID REFLEX TO DIRECT LDL PANEL Routine 06/17/2024 11:41 AM CDT Hyperlipidemia LDL goal <100 URINE CULTURE Routine 05/01/2024 10:38 AM CDT Stress incontinence (female) (male) CK TOTAL Routine 04/23/2024 11:54 AM CDT Muscle ache TSH WITH FREE T4 REFLEX Routine 04/23/2024 11:54 AM CDT Muscle ache CT CHEST W/O CONTRAST Routine 10/20/2023 1:11 PM AUTHOR Chronic cough Wheezing MA SCREENING BILATERAL W/ UVALDO Routine 10/13/2023 1:16 PM AUTHOR Visit for screening mammogram COMPREHENSIVE METABOLIC PANEL Routine 09/07/2023 11:25 AM AUTHOR 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 Chronic cough Wheezing GYNECOLOGIC CYTOLOGY Routine 07/06/2023 5:04 PM CDT Encounter for gynecological examination (general) (routine) without abnormal findings HPV HIGH RISK TYPES DNA CERVICAL Routine 07/06/2023 5:04 PM CDT Encounter for gynecological examination (general) (routine) without abnormal findings HIV ANTIGEN ANTIBODY COMBO Routine 04/19/2021 7:32 AM CDT Encounter for screening for human immunodeficiency virus (HIV) HEPATITIS C SCREEN REFLEX TO HCV RNA QUANT AND GENOTYPE Routine 04/19/2021 7:32 AM CDT Encounter for hepatitis C screening test for low risk patient COLONOSCOPY Routine 09/03/2019 9:39 AM AUTHOR from Last 3 Months or Most Recently Relevant to Health Maintenance Results * (ABNORMAL) Lipid panel reflex to direct LDL Fasting (06/17/2024 11:41 AM CDT) Cholesterol 249(H) <200 mg/dL 06/17/2024 8:57 PM CDT [facility] Triglycerides 113 <150 mg/dL 06/17/2024 8:57 PM CDT [facility] Direct Measure HDL 69 >=50 mg/dL 06/17/2024 8:57 PM CDT [facility] LDL Cholesterol Calculated 157(H) <100 mg/dL 06/17/2024 8:57 PM CDT [facility] Non HDL Cholesterol 180(H) <130 mg/dL 06/17/2024 8:57 PM CDT [facility] Patient Fasting > 8hrs? Yes 06/17/2024 8:57 PM CDT [facility] Blood BLOOD SPECIMEN / Unknown Venipuncture / Unknown 06/17/2024 11:41 AM CDT 06/17/2024 11:43 AM CDT Narrative [facility] - 06/17/2024 8:57 PM CDT Cholesterol Desirable: < 200 mg/dL Borderline High: 200 - 239 mg/dL High: >= 240 mg/dL Triglycerides Normal: < 150 mg/dL Borderline High: 150 - 199 mg/dL High: 200-499 mg/dL Very High: >= 500 mg/dL Direct Measure HDL Female: >= 50 mg/dL Male: >= 40 mg/dL LDL Cholesterol Desirable: < 100 mg/dL Above Desirable: 100 - 129 mg/dL Borderline High: 130 - 159 mg/dL High: ??160 - 189 mg/dL Very High: >= 190 mg/dL Non HDL Cholesterol Desirable: < 130 mg/dL Above Desirable: 130 - 159 mg/dL Borderline High: 160 - 189 mg/dL High: 190 - 219 mg/dL Very High: >= 220 mg/dL Marcelina Soliman MD LAB - BLOOD ORDERABL ES [facility] Core Lab [address] [facility], [address] [place] [phone] * Urine Culture (05/01/2024 10:38 AM CDT) Culture No Growth 05/02/2024 10:43 AM CDT [facility] Urine URINE SPECIMEN OBTAINED BY CLEAN CATCH PROCEDURE / Unknown Non-blood Collection / Unknown 05/01/2024 10:38 AM CDT 05/01/2024 2:45 PM CDT Monik Pritchett MD LAB - MICRO GENE RAL ORDERABLES Performing Organization Address City/[facility]/ZIP Co de Phone Number [facility] Inf. Diseases Diag. Lab [address] [facility], [address] * TSH with free T4 reflex (04/23/2024 11:54 AM CDT) TSH 2.00 0.30 - 4.20 uIU/mL 04/23/2024 8:36 PM CDT [facility] Blood BLOOD SPECIMEN / Unknown Venipuncture / Unknown 04/23/2024 11:54 AM CDT 04/23/2024 11:54 AM CDT Marcelina Soliman MD LAB - BLOOD ORDERABL ES Performing Organization Address City/[facility] Co de Phone Number [facility] [place] Core Lab [address] [facility], [address] [place] [address] * CK total (04/23/2024 11:54 AM CDT) CK 39 26 - 192 U/L 04/23/2024 8:36 PM CDT [facility] Blood BLOOD SPECIMEN / Unknown Venipuncture / Unknown 04/23/2024 11:54 AM CDT 04/23/2024 11:54 AM CDT Marcelina Soliman MD LAB - BLOOD ORDERABL ES Performing Organization Address City/[facility]/ZIP Co de Phone Number [facility] [place] Core Lab [address] [facility], [address] * CT Chest w/o Contrast (10/20/2023 1:11 PM AUTHOR) Anatomical Region Laterality Modality Chest, SUBRAD CT BODY, UMP CT CHEST, RAD CT Computed Tomography Impressions 10/20/2023 3:38 PM AUTHOR IMPRESSION: No acute abnormality in the chest. No cause for chronic cough is identified. MARYCRUZ GARCIA MD SYSTEM ID: ??[id number] Narrative 10/20/2023 3:[address] CHEST WITHOUT CONTRAST October 20, 2023 1:11 PM CLINICAL HISTORY: Chronic cough. Wheezing. TECHNIQUE: CT chest without IV contrast. Multiplanar reformats were obtained. Dose reduction techniques were used. CONTRAST: None. COMPARISON: None. FINDINGS: LUNGS AND PLEURA: No lung masses or consolidations. No pleural effusions. MEDIASTINUM/AXILLAE: No enlarged lymph nodes are identified in the chest. No pericardial effusion. CORONARY ARTERY CALCIFICATION: None. UPPER ABDOMEN: Limited noncontrast views of the upper abdomen are unremarkable. MUSCULOSKELETAL: Unremarkable. Procedure Note Marycruz Garcia MD - 10/20/2023 CT CHEST WITHOUT CONTRAST October 20, 2023 1:11 PM CLINICAL HISTORY: Chronic cough. Wheezing. TECHNIQUE: CT chest without IV contrast. Multiplanar reformats were obtained. Dose reduction techniques were used. CONTRAST: None. COMPARISON: None. FINDINGS: LUNGS AND PLEURA: No lung masses or consolidations. No pleural effusions. MEDIASTINUM/AXILLAE: No enlarged lymph nodes are identified in the chest. No pericardial effusion. CORONARY ARTERY CALCIFICATION: None. UPPER ABDOMEN: Limited noncontrast views of the upper abdomen are unremarkable. MUSCULOSKELETAL: Unremarkable. IMPRESSION: No acute abnormality in the chest. No cause for chronic cough is identified. MARYCRUZ GARCIA MD SYSTEM ID: [id number] Jasmina Aviles [facility] CT ORDERABLES * MA Screening Bilateral w/ Uvaldo (10/13/2023 1:16 PM AUTHOR) Anatomical Region Laterality Modality Breast Bilateral Mammography Impressions 10/16/2023 8:30 AM AUTHOR IMPRESSION: ACR BI-RADS Category 1: Negative BREAST CANCER SCREENING RECOMMENDATION: Routine yearly mammography beginning at age 40 or as discussed with your provider. The results and recommendations of this examination will be communicated to the patient. Tish Zavaleta MD Narrative 10/16/2023 8:30 AM AUTHOR BILATERAL FULL FIELD DIGITAL SCREENING MAMMOGRAM WITH TOMOSYNTHESIS Performed on: 10/13/23 Compared to: 06/17/2022, 04/23/2021, and 10/18/2019 Technique: ??This study was evaluated with the assistance of Computer-Aided Detection. ??Breast Tomosynthesis was used in interpretation. Findings: The breasts are heterogeneously dense, which may obscure small masses. ??There is no radiographic evidence of malignancy. Natty Ophelia Diaz MD IM MAMMOGRAPHY ORDERABLES * Comprehensive metabolic panel (BMP + Alb, Alk Phos, ALT, AST, Total. Bili, TP) (09/07/2023 11:25 AMCST) Sodium 141 135 - 145 mmol/L 09/07/2023 9:30 PM AUTHOR [facility] Comment:Reference intervals for this test were updated on 05/30/2023 to more accurately reflect our healthy population. There may be differences in the flagging of prior results with similar values performed with this method. Interpretation of those prior results can be made in the context of the updated reference intervals. Potassium 4.2 3.4 - 5.3 mmol/L 09/07/2023 9:30 PM AUTHOR [facility] Carbon Dioxide (CO2) 27 22 - 29 mmol/L 09/07/2023 9:30 PM AUTHOR [facility] Anion Gap 11 7 - 15 mmol/L 09/07/2023 9:30 PM AUTHOR [facility] Urea Nitrogen 12.3 6.0 - 20.0 mg/dL 09/07/2023 9:30 PM AUTHOR [facility] Creatinine 0.67 0.51 - 0.95 mg/dL 09/07/2023 9:30 PM AUTHOR [facility] GFR Estimate >90 >60 mL/min/1. 73m2 09/07/2023 9:30 PM AUTHOR [facility] Calcium 10.0 8.6 - 10.0 mg/dL 09/07/2023 9:30 PM AUTHOR [facility] Chloride 103 98 - 107 mmol/L 09/07/2023 9:30 PM AUTHOR [facility] Glucose 83 70 - 99 mg/dL 09/07/2023 9:30 PM AUTHOR [facility] Alkaline Phosphatase 62 40 - 150 U/L 09/07/2023 9:30 PM AUTHOR [facility] Comment:Reference intervals for this test were updated on 07/18/2023 to more accurately reflect our healthy population. There may be differences in the flagging of prior results with similar values performed with this method. Interpretation of those prior results can be made in the context of the updated reference intervals. AST 16 0 - 45 U/L 09/07/2023 9:30 PM AUTHOR [facility] Comment:Reference intervals for this test were updated on 02/13/2023 to more accurately reflect our healthy population. There may be differences in the flagging of prior results with similar values performed with this method. Interpretation of those prior results can be made in the context of the updated reference intervals. ALT 14 0 - 50 U/L 09/07/2023 9:30 PM AUTHOR [facility] Comment:Reference intervals for this test were updated on 02/13/2023 to more accurately reflect our healthy population. There may be differences in the flagging of prior results with similar values performed with this method. Interpretation of those prior results can be made in the context of the updated reference intervals. Protein Total 7.5 6.4 - 8.3 g/dL 09/07/2023 9:30 PM AUTHOR [facility] Albumin 4.4 3.5 - 5.2 g/dL 09/07/2023 9:30 PM AUTHOR [facility] Bilirubin Total 0.4 <=1.2 mg/dL 09/07/2023 9:30 PM AUTHOR [facility] Blood BLOOD SPECIMEN / Unknown Venipuncture / Unknown 09/07/2023 11:25 AM AUTHOR 09/07/2023 11:25 AM AUTHOR Lyn Simmons PA-C LAB - BLOOD ORDERABL ES [facility] Core Lab [address] [facility], [address] [place] [address] [phone] * Gynecologic Cytology (PAP) (07/06/2023 5:04 PM CDT) Interpretation Negative for Intraepithelial Lesion or Malignancy (NILM) 07/10/2023 2:27 PM AUTHOR [facility] Comment Papanicolaou Test Limitations: Cervical cytology is a screening test with limited sensitivity, and regular screening is critical for cancer prevention. Pap tests are primarily effective for the diagnosis/prevent ion of squamous cell carcinoma, not adenocarcinoma or other cancers. 07/10/2023 2:27 PM AUTHOR [facility] Specimen Adequacy Satisfactory for evaluation, endocerv/transfor mation zone component absent, atrophy 07/10/2023 2:27 PM AUTHOR [facility] Clinical Information none 07/10/2023 2:27 PM AUTHOR [facility] LMP/Menopause Date NONE 07/10/2023 2:27 PM AUTHOR [facility] Reflex Testing Yes regardless of result 07/10/2023 2:27 PM AUTHOR [facility] Previous Abnormal? No 07/10/2023 2:27 PM AUTHOR [facility] Previous Abnormal Diagnosis Neg/Neg hpv 07/10/2023 2:[address] [facility] Performing Labs The technical component of this testing was completed at [facility] 07/10/2023 2:[address] [facility] Brushing CERVIX UTERI STRUCTURE / Unknown 07/06/2023 5:04 PM CDT 07/06/2023 8:31 PM CDT Natty Ophelia Diaz MD [facility] Specialty Lab [address] [facility], [address] [phone], [facility] [phone] * HPV High Risk Types DNA Cervical (07/06/2023 5:04 PM CDT) Other HR HPV Negative Negative 07/12/2023 7:01 AM AUTHOR [facility] HPV16 DNA Negative Negative 07/12/2023 7:01 AM AUTHOR [facility] HPV18 DNA Negative Negative 07/12/2023 7:[address] [facility]ST[facility] FINAL DIAGNOSIS This patient's sample is negative for HPV DNA. This test was developed and its performance characteristics determined by the [facility], Molecular Diagnostics Laboratory. It has not been cleared or approved by the FDA. The laboratory is regulated under CLIA as qualified to perform high-complexity testing. This test is used for clinical purposes. It should not be regarded as investigational or for research. METHODOLOGY: The Salma Rick 4800 system uses automated extraction, simultaneous amplification of HPV (L1 region) and beta-globin, followed by real time detection of fluorescent labeled HPV and beta globin using specific oligonucleotide probes. The test specifically identifies types HPV 16 DNA and HPV 18 DNA while concurrently detecting the rest of the high risk types (31, 33, 35, 39, 45, 51, 52, 56, 58, 59, 66 or 68). COMMENTS: This test is not intended for use as a screening device for woman under age 30 with normal cervical cytology. Results should be correlated with cytologic and histologic findings. Close clinical followup is recommended. 07/12/2023 7:01 AM AUTHOR [facility] Brushing CERVIX UTERI STRUCTURE / Unknown Non-blood Collection / Unknown 07/06/2023 5:04 PM CDT 07/11/2023 8:20 AM AUTHOR Natty Diaz MD LAB - BLOOD PRAKASH MARQUEZ [employer] [facility] Molecular Diagnostics [address] [facility], [address] [place] [address], [facility] [phone] * HIV Antigen Antibody Combo (04/19/2021 7:32 AM CDT) Pathologist [facility] HIV Antigen Antibody Combo Nonreactive Nonreactive 04/19/2021 4:25 PM CDT [facility] Comment:HIV-1 p24 Ag & HIV-1 /HIV-2 Ab Not Detected Blood STRUCTURE OF RIGHT UPPER LIMB / Unknown Venipuncture / Unknown 04/19/2021 7:32 AM CDT 04/19/2021 7:32 AM CDT Susan Camejo MD LAB - BLOO D ORDERABLES [facility] Specialty Core Lab [address] [facility], [address] [place] [address], [facility] [phone] * Hepatitis C Screen Reflex to HCV RNA Quant and Genotype (04/19/2021 7:32 AM CDT) Hepatitis C Antibody Nonreactive Nonreactive 04/19/2021 4:25 PM CDT [facility] Blood STRUCTURE OF RIGHT UPPER LIMB / Unknown Venipuncture / Unknown 04/19/2021 7:32 AM CDT 04/19/2021 7:32 AM CDT Narrative [facility] CORE - 04/19/2021 4:25 PM CDT Assay performance characteristics have not been established for newborns, infants, and children. Susan Camejo MD LAB - BLOO D ORDERABLES [facility] SPECIALTY CORE [facility] Specialty Core Lab [address] [facility], [address] [place] [address], [facility] [phone] * COLONOSCOPY (09/03/2019 9:39 AM AUTHOR) COLONOSCOPY [facility] Patient Name: Shekhar Pickett ?Procedure Date: 09/03/2019 9:39 AM ? Date of : 1970 ?Admit Type: Outpatient Age: 48 ? Gender: Female Attending MD: Corazon Tan MD Total Sedation Time: 19 min, IT 10 min, WT 9 min Instrument Name: 220 - Pediatric Colonoscope Procedure: ?Colonoscopy Indications: ?Screening for colorectal malignant neoplasm Providers: ?Corazon Tan MD (Doctor) Referring MD: ? Marcelina Soliman Md, MD (Referring MD) Medicines: ?Midazolam 2 mg IV, Fentanyl 150 micrograms IV Complications: ?No immediate complications. Procedure: ?Pre-Anesthesia Assessment: ?- Prior to the procedure, a History and Physical ?was performed, and patient medications and ?allergies were reviewed. The patient's tolerance of ?previous anesthesia was also reviewed. The risks ?and benefits of the procedure and the sedation ?options and risks were discussed with the patient. ?All questions were answered, and informed consent ?was obtained. Prior Anticoagulants: The patient has ?taken no previous anticoagulant or antiplatelet ?agents. ASA Grade Assessment: II - A patient with ?mild systemic disease. After reviewing the risks ?and benefits, the patient was deemed in ?satisfactory condition to undergo the procedure. ?- Prior to the procedure, a History and Physical ?was performed, and patient medications, allergies ?and sensitivities were reviewed. The patient's ?tolerance of previous anesthesia was reviewed. ?- The risks and benefits of the procedure and the ?sedation options and risks were discussed with the ?patient. All questions were answered and informed ?consent was obtained. ?- Patient identification and proposed procedure ?were verified prior to the procedure by the ?physician. The procedure was verified in the ?endoscopy suite. ?- Pre-procedure physical examination revealed no ?contraindication s to sedation. ?- The heart rate, respiratory rate, oxygen ?saturations, blood pressure, adequacy of pulmonary ?ventilation, and response to care were monitored ?throughout the procedure. ?- The physical status of the patient was ?re-assessed after the procedure. ?After obtaining informed consent, the colonoscope ?was passed under direct vision. Throughout the ?procedure, the patient's blood pressure, pulse, and ?oxygen saturations were monitored continuously. The ?Olympus, Pediatric Colonoscope, Model # [id number]-H190DL, ?[place]ora # 220, SN # [id number] was introduced through ?the anus and advanced to the terminal ileum. The ?colonoscopy was somewhat difficult due to ?significant looping. Successful completion of the ?procedure was aided by using manual pressure. The ?patient tolerated the procedure well. The quality ?of the bowel preparation was good. ? Findings: ? Skin tags were found on perianal exam. ? The sigmoid colon and transverse colon revealed moderately excessive ? looping. Advancing the scope required using manual pressure. ? The exam was otherwise without abnormality on direct and retroflexion ? views. ? Impression: ? - Perianal skin tags found on perianal exam. ?- There was significant looping of the colon. ?- The examination was otherwise normal on direct ?and retroflexion views. ?- No specimens collected. Recommendation: ? - Discharge patient to home. ?- Resume previous diet. ?- Continue present medications. ?- Use fiber, for example Citrucel, Fibercon, Konsyl ?or Metamucil. ?- Repeat colonoscopy in 10 years for screening ?purposes. ? Procedure Code(s): ? --- Professional --- ? G0121, Colorectal cancer screening; colonoscopy on individual not ? meeting criteria for high risk CPT copyright 2018 [employer]. All rights reserved. The codes documented in this report are preliminary and upon administration vice president review may be revised to meet current compliance requirements. Corazon Tan MD 09/03/2019 10:56:24 AM I was physically present for the entire viewing portion of the exam. Corazon Tan MD Number of Addenda: 0 Note Initiated On: 09/03/2019 9:39 AM MRN: ?[id number] Procedure Date: ? 09/03/2019 9:39:09 AM Scope Withdrawal Time: 0 hours 9 minutes 28 seconds Total Procedure Duration: 0 hours 19 minutes 2 seconds Estimated Blood Loss: ? Scope In: 10:32:42 AM Scope Out: 10:51:44 AM RADIOLOGY RESULTS 09/03/2019 9:39 AM AUTHOR Marcelina Soliman MD PROCEDURES RADIOLOGY RESULTS from Last 3 Months or Most Recently Relevant to Health Maintenance Advance Directives For more information, please contact: [phone] * No Code Status (Latest Code Status on File) Date Activated Date Inactivated Comments 06/03/2004 4:29 PM 06/03/2004 4:29 PM Care Teams Hoop Rolls Operator Relationship Specialty [place] [address] [place] [address] PCP - General 04/18/24 Jasmina Aviles APRN [employer] [address] [address] Director [employer]ery [employer] Pulmonary Disease 09/08/23 Jasmina Aviles APRN [employer] [address] [address] Assigned Pulmonology Provider 09/28/23 [place] [address] [place] [address] Assigned PCP 04/26/24
--- OUTSIDE RECORDS SUMMARY | 2024-06-24 18:06 | XMS_ITS | Encounter Summary ---
Author Organization [facility] Address [address] [place] [address]. [place] [address] Care Team Providers Care Adult Neuropsychologist Name Role Phone Traci Jasmina PITT VIDEO GAME REPAIR TECHNICIAN Unavailable [phone] Lyn SimmonsC Unavailable [phone] Jasmina Aviles APRN VIDEO GAME REPAIR TECHNICIAN Unavailable [phone] Marcelina Soliman MD Primary Care Provider [phone] Encounter Details Date Type Department Care Team (Latest Contact Info) Description 04/18/2024 Travel Social History Tobacco Use Types Packs/Day Years Used Date Smoking Tobacco: Former Cigarettes 0.5 5 1 - 1997 Smokeless Tobacco: Never Comments:Quit in 02/1998 Alcohol Use Standard Drinks/Week Comments Yes 0 (1 standard drink = 0.6 oz pur e alcohol) once in awhile PHQ-2 Answer Date Recorded PHQ-2 Score 0 09/07/2023 Adolescent Education Answer Date Record ed Getting School Help Needed Not on file 06/18 Interpersonal Safety Answer Date Record ed Do you feel physically and e motionally safe where you currently live? Yes 09/07/2023 Within the past 12 months, h ave you been hit, slapped, kicked or otherwise physically hurt by someone? No 09/07/2023 Within the past 12 months, h ave you been humiliated or emotionally abused in other ways by your partner or ex-partner? No 09/07/2023 Sex and Gender Information Value Date Recorded Sex Assigned at Female 04/14/2021 11:29 AM CDT Gender Identity Female 04/14/2021 11:29 AM CDT Sexual Orientation Straight 04/14/2021 11 :29 AM CDT Travel History Travel Start Travel End [place] 05/30/2024 06/02/2024 [facility] 05/23/2024 05/30/2024 documented as of this encounter Plan of Treatment Not on file documented as of this encounter Visit Diagnoses Not on filedocumented in this encounter Additional Health Concerns Assessment Noted Time PHQ-9 Depression Total Score: 6 09/07/19 10:42 AM TECHNICAL SERVICES MANAGER documented as of this encounter Care Teams Adult Neuropsychologist Relationship Specialty [place] [address] [place] [address] PCP - General 04/18/24 Jasmina Aviles APRN VIDEO GAME REPAIR TECHNICIAN [address] [address] Driver Service Technician Pulmonary Disease 09/08/23 Lyn Simmons PA-C [address] [place] [address] Assigned PCP 09/09/23 04/25/24 Jasmina Aviles APRN VIDEO GAME REPAIR TECHNICIAN [address] [address] Assigned Pulmonology Provider 09/28/23 documented as of this encounter
--- OUTSIDE RECORDS SUMMARY | 2024-06-24 18:06 | XMS_ITS | Encounter Summary ---
Author Organization [facility] Address [address] [place] [address] Care Team Providers Care Pool Technician Name Role Phone Marcelina Soliman MD Primary Care Provider [phone] Susan Camejo MD Unavailable + Elizabeth Roy APRN INCOMING INSPECTOR Unavailable Marcelina Soliman MD Unavailable No Ref-Primary, Physician Primary Care Provider Jasmina Aviles APRN INCOMING INSPECTOR Unavailable Lyn Simmons PA-C Unavailable [phone] Lyn Simmons PA-C Primary Care Provider Jasmina Aviles APRN INCOMING INSPECTOR Unavailable Natty Diaz MD Primary Care Provider + Marcelina Soliman MD Primary Care Provider [phone] Marcelina Soliman MD Unavailable Encounter Details Date Type Department Care Team (Late st Contact Info) Description 06/03/2021 Documentation Only INTERFACED REPORT Unknown, Provider Social History Tobacco Use Types Packs/Day Years Used Date Smoking Tobacco: Former Cigarettes 0.5 5 Smokeless Tobacco: Never Comments:Quit in 02/1998 Alcohol Use Standard Drinks/Week Comments Yes 0 (1 standard drink = 0.6 oz pur e alcohol) once in awhile PHQ-2 Answer Date Recorded PHQ-2 Score 1 04/19/2021 Sex and Gender Information Value Date Recorded Sex Assigned at Female 04/14/2021 11:29 AM CDT Gender Identity Female 04/14/2021 11:29 AM CDT Sexual Orientation Straight 04/14/2021 11 :29 AM CDT Travel History Travel Start Travel End [place] 05/30/2024 06/02/2024 [facility] 05/23/2024 05/30/2024 COVID-19 Exposure Response Date Recorded In the last month, have you been in contact with someone who was confirmed or suspected to have Coronavirus / COVID-19? No / Unsure 06/03/2021 11:05 AM CDT documented as of this encounter Plan of Treatment Not on file documented as of this encounter Visit Diagnoses Not on filedocumented in this encounter Additional Health Concerns Assessment Noted Time PHQ-9 Depression Total Score: 9 04/20/20 21 7:03 AM CDT documented as of this encounter Care Teams Pool Technician Relationship Specialty [place] [address] [place] [address] PCP - General Family Practice 06/02/16 12/05/22 No Ref-Primary, Physician PCP - General 08/07/23 09/25/23 Lyn Simmons PA-C [address] [place] [address] PCP - General 09/26/23 10/12/23 Natty Diaz MD [address] [address] PCP - General template layout worker 10/13/23 04/17/24 [place] [address] [place] [address] PCP - General 04/18/24 Susan Camejo MD [facility] [address] [place] [address] Assigned PCP 04/25/21 07/17/21 Elizabeth Roy APRN INCOMING INSPECTOR PRIMARY ENT [address] [place] [address] Assigned PCP 07/18/21 02/17/23 [place] [address] [place] [address] Assigned PCP 02/18/23 09/08/23 Jasmina Aviles APRN INCOMING INSPECTOR [address] [facility] [address] [place] [address] Environmental Marketing Representative Pulmonary Disease 09/08/23 Lyn Simmons PA-C [address] [place] [address] Assigned PCP 09/09/23 04/25/24 Jasmina Aviles APRN INCOMING INSPECTOR [address] [facility] [address] [place] [address] Assigned Pulmonology Provider 09/28/23 [place] [address] [place] [address] Assigned PCP 04/26/24 documented as of this encounter
--- OUTSIDE RECORDS SUMMARY | 2024-06-24 18:06 | XMS_ITS | Encounter Summary ---
Author Organization [facility] Address [address] [place] [address] Care Team Providers Care Magnetic Doctor Name Role Phone Marcelina Soliman MD Primary Care Provider [phone] Elizabeth Roy APRN CHEMICAL OPERATIONS AND TRAINING Unavailable Marcelina Soliman MD Unavailable No Ref-Primary, Physician Primary Care Provider Jasmina Aviles APRN CHEMICAL OPERATIONS AND TRAINING Unavailable Lyn Simmons PA-C Unavailable [phone] Lyn Simmons PA-C Primary Care Provider Jasmina Aviles APRN CHEMICAL OPERATIONS AND TRAINING Unavailable Natty Diaz MD Primary Care Provider + Marcelina Soliman MD Primary Care Provider [phone] Marcelina Soliman MD Unavailable Reason for Visit * Reason Comments Medication Refill Encounter Details Date Type Department Care Team (Late st Contact Info) Description 08/09/[address] [address] Susan Camejo MD PRIMARY ENT [address] [facility] [address] [place] [address] Medication Refill Social History Tobacco Use Types Packs/Day Years Used Date Smoking Tobacco: Former Cigarettes 0.5 5 Smokeless Tobacco: Never Comments:Quit in 02/1998 Alcohol Use Standard Drinks/Week Comments Yes 0 (1 standard drink = 0.6 oz pur e alcohol) once in awhile PHQ-2 Answer Date Recorded PHQ-2 Score 1 07/09/2021 Sex and Gender Information Value Date Recorded Sex Assigned at Female 04/14/2021 11:29 AM CDT Gender Identity Female 04/14/2021 11:29 AM CDT Sexual Orientation Straight 04/14/2021 11 :29 AM CDT Travel History Travel Start Travel End [place] 05/30/2024 06/02/[address] [facility] 05/23/2024 05/30/2024 documented as of this encounter Miscellaneous Notes * Telephone Encounter - Janee Slade RN - 08/10/2021 2:59 PM CST No RF needed before visiit Janee Slade RN T TRIMMER documented in this encounter Plan of Treatment Not on file documented as of this encounter Visit Diagnoses Diagnosis Ina's thyroiditis Chronic lymphocytic thyroiditis documented in this encounter Additional Health Concerns Assessment Noted Time PHQ-9 Depression Total Score: 8 07/10/20 21 7:03 AM CDT documented as of this encounter Care Teams Magnetic Doctor Relationship Specialty Start [place] [address] [place] [address] PCP - General Family Practice 06/02/16 12/05/22 No Ref-Primary, Physician PCP - General 08/07/23 09/25/23 Lyn Simmons PA-C [address] [place] [address] PCP - General 09/26/23 10/12/23 Natty Diaz MD [address] [facility] [address] [place] [address] PCP - General press worker helper 10/13/23 04/17/24 [place] [address] [place] [address] PCP - General 04/18/24 Elizabeth Roy APRN CHEMICAL OPERATIONS AND TRAINING [address] [place] [address] Assigned PCP 07/18/21 02/17/23 [place] [address] [place] [address] Assigned PCP 02/18/23 09/08/23 Jasmina Aviles APRN CHEMICAL OPERATIONS AND TRAINING [address] [address] [employer] Pulmonary Disease 09/08/23 Lyn Simmons PA-C [address] [place] [address] Assigned PCP 09/09/23 04/25/24 Jasmina Aviles APRN CHEMICAL OPERATIONS AND TRAINING [address] [address] Assigned Pulmonology Provider 09/28/23 [place] [address] [place] [address] Assigned PCP 04/26/24 documented as of this encounter
--- OUTSIDE RECORDS SUMMARY | 2024-06-24 18:06 | XMS_ITS | Clinical Summary ---
Author Organization [facility] Address [address] [place] [address] Care Team Providers Care Front Window Cashier Name Role Phone Jasmina Aviles APRN ALBERENE STONE SETTER Unavailable [phone] Jasmina Aviles APRN ALBERENE STONE SETTER Unavailable [phone] Marcelina Soliman MD Primary Care Provider Marcelina Soliman MD Unavailable Allergies Active Allergy Reactions Criticality Noted Date [...] 160 07/04/2010 04/23/2024 Depressive disorder 03/08/2010 04/23/20 Iron deficiency anemia 02/12/200803/13 Encounters Date Type Department Care Team Description 06/17/2024 11:30 AM CDT Office Visit [address] [address] Marcelina Soliman MD Nausea (Primary Dx); Hyperlipidemia LDL goal <100 06/17/2024 Travel 06/16/2024 Travel 05/01/2024 Transcribe Orders GENERIC EXTERNAL DATA DEPARTMENT Monik Pritchett MD Pelvic floor dysfunction (Primary Dx); Disorder of muscle, unspecified 04/23/2024 11:30 AM CDT Office Visit [address] [address] Marcelina Soliman MD Gastroesophageal reflux disease without esophagitis (Primary Dx); Muscle ache; Generalized anxiety disorder; Hyperlipidemia LDL goal <100 04/23/2024 Travel 04/18/2024 Travel from Last 3 Months Immunizations Name Administration Dates Next Due COVID-19 MONOVALENT 12+ (Pfizer) 01/02/2021 COVID-19 Monovalent 18+ (Moderna) 12/24/2020 COVID-19 Monovalent Booster 18+ (Moderna) 09/03/2021 Influenza (IIV3) PF 05/25/2012,06/02/2011 Influenza Vaccine 18-64 (Flublok) 07/09/2021 Influenza Vaccine >6 months,quad, PF ,06/20/2019,06/02/2016,2012 Influenza,INJ,MDCK,PF,Quad >6mo(Flucelvax) 05/16/2022 TDAP (Adacel,Boostrix) 07/09/2021 TDAP Vaccine (Adacel) 12/10/2008 Zoster recombinant adjuvante d (SHINGRIX) 09/24/2021,07/09/2021 Family History Medical History Relation Comments Hypertension Father Breast Cancer Mother Colon Cancer No family hx of Relation Status Comments Father Alive Maternal Grandfather Maternal Grandmother Mother Alive Paternal Grandfather Paternal Grandmother Alive Sister 1 Alive Sister 2 Alive Social History Tobacco Use Types Packs/Day Years Used Date Smoking Tobacco: Former Cigarettes 0.5 5 1 3 - 1997 Smokeless Tobacco: Never Tobacco Cessation:Counseling Given: No [...] CDT Travel History Travel Start Travel End [place] 05/30/2024 06/02/2024 [facility] 05/23/2024 05/30/2024 Last Filed Vital Signs Vital [...] 06/17/2024 11:15 AM CDT Plan of Treatment Health Maintenance Due Date Last Done Comments ADVANCE CARE PLANNING 1968 CT COLONOGRAPHY 1968 FIT 1968 FLEX SIG 1968 sDNA (Cologuard) 1968 HEPATITIS B IMMUNIZATION (1 of 3 - 19+ 3-dose series) 1987 YEARLY PREVENTIVE VISIT 05/16/2023 05/16/20 22, 05/16/2022, 04/05/2021, Additional history exists COVID-19 Vaccine ( season) 2024 09/03/2021, 01/21/2021, 01/02/2021, Additional history exists INFLUENZA VACCINE (#1) 2024 , 07/09/2021, 07/03/2020, Additional history exists PHQ-9 12/16/2024 06/17/2024, 04/05, 09/07/2023, Additional history exists ANNUAL REVIEW OF HM ORDERS 04/23/202504/23, 12/20/2022, 07/09/2021 LIPID 06/17/2025 06/17/2024, 12/04, 09/07/2023, Additional history exists MAMMO SCREENING 10/13/2025 10/13/2023, 06/04, 06/17/2022, Additional history exists GLUCOSE 09/07/2026 09/07/2023, 05/07, 06/15/2019, Additional history exists HPV TEST 07/06/2028 07/06/2023, 02/03, 02/25/2021, Additional history exists PAP 07/06/2028 07/06/2023, 02/03, 02/25/2021, Additional history exists COLONOSCOPY 09/03/2029 09/03/2019, 09/03/2019 COLORECTAL CANCER SCREENING 09/03/2029 DTAP/TDAP/TD IMMUNIZATION (3 - Td or Tdap) 07/09/2031 07/09/2021, 12/10/2008 RSV VACCINE (1 - 1-dose 75+ series) 2043 DEPRESSION ACTION PLAN Completed 7, 06/17/2014, 04/04/2013 HEPATITIS C SCREENING Completed 04/19/2021 HIV SCREENING Completed 04/19/2021 ZOSTER IMMUNIZATION Completed 09/24/2021, LUNG CANCER SCREENING Discontinued 10/20/2023, 014 HPV IMMUNIZATION Aged Out No longer e ligible based on patient's age to complete this topic MENINGITIS IMMUNIZATION Aged Out No l onger eligible based on patient's age to complete this topic Pneumococcal Vaccine: Pediatrics (0 to 5 Years) and At-Risk Patients (6 to 64 Years) Aged Out No longer eligible based on patient's age to complete this topic RSV MONOCLONAL ANTIBODY Aged Out No l onger eligible based on patient's age to complete this topic Procedures Procedure Name Priority Date/Time Associated Diagnosis Comments LIPID REFLEX TO DIRECT LDL PANEL Routine 06/17/2024 11:41 AM CDT Hyperlipidemia LDL goal <100 URINE CULTURE Routine 05/01/2024 10:38 AM CDT Stress incontinence (female) (male) CK TOTAL Routine 04/23/2024 11:54 AM CDT Muscle ache TSH WITH FREE T4 REFLEX Routine 04/23/2024 11:54 AM CDT Muscle ache CT CHEST W/O CONTRAST Routine 10/20/2023 1:11 PM AGENCY SALES DIRECTOR Chronic cough Wheezing MA SCREENING BILATERAL W/ UVALDO Routine 10/13/2023 1:16 PM AGENCY SALES DIRECTOR Visit for screening mammogram COMPREHENSIVE METABOLIC PANEL Routine 09/07/2023 11:25 AM AGENCY SALES DIRECTOR 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 Chronic cough [...] risk patient COLONOSCOPY Routine 09/03/2019 9:39 AM AGENCY SALES DIRECTOR from Last 3 Months or Most Recently [...] - BLOOD ORDERABL ES Performing Organization Address City/[facility]/ZIP Co de Phone Number [facility] [place] [facility] [address] [facility], Room [address] * Urine Culture (05/01/2024 10:38 AM CDT) Culture No Growth 05/02/2024 10:43 AM CDT [facility] Urine URINE SPECIMEN OBTAINED BY CLEAN CATCH PROCEDURE / Unknown Non-blood Collection / Unknown 05/01/2024 10:38 AM CDT 05/01/2024 2:45 PM CDT Monik Pritchett MD LAB - MICRO GENE RAL ORDERABLES Performing Organization Address City/[facility]/ZIP Co de Phone Number [facility] Inf. Diseases Diag. Lab [address] [facility], [address] * TSH with free T4 reflex (04/23/2024 11:54 AM CDT) TSH 2.00 0.30 - 4.20 uIU/mL 04/23/2024 8:36 PM CDT [facility] Blood BLOOD SPECIMEN / Unknown Venipuncture / Unknown 04/23/2024 11:54 AM CDT 04/23/2024 11:54 AM CDT Marcelina Soliman MD LAB - BLOOD ORDERABL ES [facility] [place] [facility] [address] [facility], Room [address] * CK total (04/23/2024 11:54 AM CDT) CK 39 26 - 192 U/L 04/23/2024 8:36 PM CDT [facility] Blood BLOOD SPECIMEN / Unknown Venipuncture / Unknown 04/23/2024 11:54 AM CDT 04/23/2024 11:54 AM CDT Marcelina Soliman MD LAB - BLOOD ORDERABL ES [facility] [place] [facility] [address] [facility] [address], Room [address] [address] * CT Chest w/o Contrast (10/20/2023 1:11 PM AGENCY SALES DIRECTOR) Anatomical Region Laterality Modality Chest, SUBRAD CT BODY, UMP CT CHEST, RAD CT Computed Tomography Impressions 10/20/2023 3:38 PM AGENCY SALES DIRECTOR IMPRESSION: No acute abnormality in the chest. No cause for chronic cough is identified. MARYCRUZ GARCIA MD SYSTEM ID: ??[id number] Narrative 10/20/2023 3:[address] CHEST WITHOUT CONTRAST October 20, 2023 [...] is identified. MARYCRUZ GARCIA MD SYSTEM ID: [id number] Jasmina Aviles YOANDY ALBERENE STONE SETTER [facility] [place] ORDERABLES * MA Screening Bilateral w/ Uvaldo (10/13/2023 1:16 PM AGENCY SALES DIRECTOR) Anatomical Region Laterality Modality Breast Bilateral Mammography Impressions 10/16/2023 8:30 AM AGENCY SALES DIRECTOR IMPRESSION: ACR BI-RADS Category 1: Negative BREAST CANCER SCREENING RECOMMENDATION: Routine yearly mammography beginning at age 40 or as discussed with your provider. The results and recommendations of this examination will be communicated to the patient. Tish Zavaleta MD Narrative 10/16/2023 8:30 AM AGENCY SALES DIRECTOR BILATERAL FULL FIELD DIGITAL SCREENING MAMMOGRAM WITH TOMOSYNTHESIS Performed on: 10/13/23 Compared to: 06/17/2022, 04/23/2021, and 10/18/2019 Technique: ??This study was evaluated with the assistance of Computer-Aided Detection. ??Breast Tomosynthesis was used in interpretation. Findings: The breasts are heterogeneously dense, which may obscure small masses. ??There is no radiographic evidence of malignancy. Natty Diaz MD [facility] MAMMOGRAPHY ORDERABLES * Comprehensive metabolic panel (BMP + Alb, Alk Phos, ALT, AST, Total. Bili, TP) (09/07/2023 11:25 AMCST) Sodium 141 135 - 145 mmol/L 09/07/2023 9:30 PM AGENCY SALES DIRECTOR [facility] Comment:Reference intervals for this test were updated on 05/30/2023 to more accurately reflect our healthy population. There may be differences in the flagging of prior results with similar values performed with this method. Interpretation of those prior results can be made in the context of the updated reference intervals. Potassium 4.2 3.4 - 5.3 mmol/L 09/07/2023 9:30 PM AGENCY SALES DIRECTOR [facility] Carbon Dioxide (CO2) 27 22 - 29 mmol/L 09/07/2023 9:30 PM AGENCY SALES DIRECTOR [facility] Anion Gap 11 7 - 15 mmol/L 09/07/2023 9:30 PM AGENCY SALES DIRECTOR [facility] Urea Nitrogen 12.3 6.0 - 20.0 mg/dL 09/07/2023 9:30 PM AGENCY SALES DIRECTOR [facility] Creatinine 0.67 0.51 - 0.95 mg/dL 09/07/2023 9:30 PM AGENCY SALES DIRECTOR [facility] GFR Estimate >90 >60 mL/min/1. 73m2 09/07/2023 9:30 PM AGENCY SALES DIRECTOR [facility] Calcium 10.0 8.6 - 10.0 mg/dL 09/07/2023 9:30 PM AGENCY SALES DIRECTOR [facility] Chloride 103 98 - 107 mmol/L 09/07/2023 9:30 PM AGENCY SALES DIRECTOR [facility] Glucose 83 70 - 99 mg/dL 09/07/2023 9:30 PM AGENCY SALES DIRECTOR [facility] Alkaline Phosphatase 62 40 - 150 U/L 09/07/2023 9:30 PM AGENCY SALES DIRECTOR [facility] Comment:Reference intervals for this test were updated on 07/18/2023 to more accurately reflect our healthy population. There may be differences in the flagging of prior results with similar values performed with this method. Interpretation of those prior results can be made in the context of the updated reference intervals. AST 16 0 - 45 U/L 09/07/2023 9:30 PM AGENCY SALES DIRECTOR [facility] Comment:Reference intervals for this test were updated on 02/13/2023 to more accurately reflect our healthy population. There may be differences in the flagging of prior results with similar values performed with this method. Interpretation of those prior results can be made in the context of the updated reference intervals. ALT 14 0 - 50 U/L 09/07/2023 9:30 PM AGENCY SALES DIRECTOR [facility] Comment:Reference intervals for this test were updated on 02/13/2023 to more accurately reflect our healthy population. There may be differences in the flagging of prior results with similar values performed with this method. Interpretation of those prior results can be made in the context of the updated reference intervals. Protein Total 7.5 6.4 - 8.3 g/dL 09/07/2023 9:30 PM AGENCY SALES DIRECTOR [facility] Albumin 4.4 3.5 - 5.2 g/dL 09/07/2023 9:30 PM AGENCY SALES DIRECTOR [facility] Bilirubin Total 0.4 <=1.2 mg/dL 09/07/2023 9:30 PM AGENCY SALES DIRECTOR [facility] Blood BLOOD SPECIMEN / Unknown Venipuncture / Unknown 09/07/2023 11:25 AM AGENCY SALES DIRECTOR 09/07/2023 11:25 AM AGENCY SALES DIRECTOR Lyn Simmons PA-C LAB - BLOOD ORDERABL ES [facility] [place] [facility] [address] [facility] [address] Building, Room [address] [address], [facility] [phone] * Gynecologic Cytology (PAP) (07/06/2023 5:04 PM CDT) Interpretation Negative for Intraepithelial Lesion or Malignancy (NILM) 07/10/2023 2:27 PM AGENCY SALES DIRECTOR [facility] Comment Papanicolaou Test Limitations: Cervical cytology is a screening test with limited sensitivity, and regular screening is critical for cancer prevention. Pap tests are primarily effective for the diagnosis/prevent ion of squamous cell carcinoma, not adenocarcinoma or other cancers. 07/10/2023 2:27 PM AGENCY SALES DIRECTOR [facility] Specimen Adequacy Satisfactory for evaluation, endocerv/transfor mation zone component absent, atrophy 07/10/2023 2:27 PM AGENCY SALES DIRECTOR [facility] Clinical Information none 07/10/2023 2:27 PM AGENCY SALES DIRECTOR [facility] LMP/Menopause Date NONE 07/10/2023 2:27 PM AGENCY SALES DIRECTOR [facility] Reflex Testing Yes regardless of result 07/10/2023 2:27 PM AGENCY SALES DIRECTOR [facility] Previous Abnormal? No 07/10/2023 2:27 PM AGENCY SALES DIRECTOR [facility] Previous Abnormal Diagnosis Neg/Neg hpv 07/10/2023 2:27 PM AGENCY SALES DIRECTOR [facility] Performing Labs The technical component of this testing was completed at [facility] 07/10/2023 2:27 PM AGENCY SALES DIRECTOR [facility] Brushing CERVIX UTERI STRUCTURE / Unknown 07/06/2023 5:04 PM CDT 07/06/2023 8:31 PM CDT Natty CORTEZ - BETH[facility] AP [facility] [address] [facility] [address] Building, Room [address] [place] [address], [facility] [phone] * HPV High Risk Types DNA Cervical (07/06/2023 5:04 PM CDT) Other HR HPV Negative Negative 07/12/2023 7:01 AM AGENCY SALES DIRECTOR [facility]ST[facility] HPV16 DNA Negative Negative 07/12/2023 7:01 AM AGENCY SALES DIRECTOR [facility]AGNOST[facility] HPV18 DNA Negative Negative 07/12/2023 7:01 AM AGENCY SALES DIRECTOR MO[facility] DIAGNOSTICS FINAL DIAGNOSIS This patient's sample is negative for HPV DNA. This test was developed and its performance characteristics determined by the [facility], Molecular Diagnostics Laboratory. It has not been [...] clinical followup is recommended. 07/12/2023 7:01 AM AGENCY SALES DIRECTOR [facility] Brushing CERVIX UTERI STRUCTURE / Unknown Non-blood Collection / Unknown 07/06/2023 5:04 PM CDT 07/11/2023 8:20 AM AGENCY SALES DIRECTOR Natty Diaz MD LAB - BLOOD PRAKASH MARQUEZ [facility] Organization Address City/State/ZIP Co de Phone Number [facility] [address], [address] [place] [address], [facility] [phone] * HIV Antigen Antibody Combo (04/19/2021 7:32 AM CDT) HIV Antigen Antibody Combo Nonreactive Nonreactive 04/19/2021 4:25 PM CDT [facility] Comment:HIV-1 p24 Ag & HIV-1 /HIV-2 Ab Not Detected Blood STRUCTURE OF RIGHT UPPER LIMB / Unknown Venipuncture / Unknown 04/19/2021 7:32 AM CDT 04/19/2021 7:32 AM CDT Susan Camejo MD LAB - BLOO D ORDERABLES [place] [facility] [address] [facility], [address] [place] [address], [facility] [phone] * Hepatitis C Screen Reflex to HCV RNA Quant and Genotype (04/19/2021 7:32 AM CDT) Pathologist [facility] Hepatitis C Antibody Nonreactive Nonreactive 04/19/2021 4:25 PM CDT [facility] Blood STRUCTURE OF RIGHT UPPER LIMB / Unknown Venipuncture / Unknown 04/19/2021 7:32 AM CDT 04/19/2021 7:32 AM CDT Narrative [facility] - 04/19/2021 4:25 PM CDT Assay performance characteristics have not been established for newborns, infants, and children. Susan Camejo MD LAB - BLOO D ORDERABLES [place] [facility] [address] [facility], [address] [place] [address], [facility] [phone] * COLONOSCOPY (09/03/2019 9:39 AM AGENCY SALES DIRECTOR) COLONOSCOPY [facility] Patient Name: Shekhar Pickett ?Procedure Date: [...] # [id number], ?[place] # 220, SN # [id number] was introduced through ?the anus and advanced [...] criteria for high risk CPT copyright 2018 [employer]. All rights reserved. The codes documented in this report are preliminary and upon superintendent logging review may be revised to meet current compliance requirements. Corazon Tan MD 09/03/2019 10:56:24 AM I was physically present for the entire viewing portion of the exam. Corazon Tan MD Number of Addenda: 0 Note Initiated On: 09/03/2019 9:39 AM MRN: ?[id number] Procedure Date: ? 09/03/2019 9:39:09 AM Scope Withdrawal Time: 0 hours 9 minutes 28 seconds Total Procedure Duration: 0 hours 19 minutes 2 seconds Estimated Blood Loss: ? Scope In: 10:32:42 AM Scope Out: 10:51:44 AM RADIOLOGY RESULTS 09/03/2019 9:39 AM AGENCY SALES DIRECTOR Marcelina Soliman MD PROCEDURES RADIOLOGY RESULTS from Last 3 Months or Most Recently Relevant to Health Maintenance Advance Directives For more information, please contact: [phone] * No Code Status (Latest Code Status on File) Date Activated Date Inactivated Comments 06/03/2004 4:29 PM 06/03/2004 4:29 PM Care Teams Front Window Cashier Relationship Specialty [place] [address] [place] [address] PCP - General 04/18/24 Jasmina Aviles APRN ALBERENE STONE SETTER [address] [facility] [address] [place] [address] Crackling Press Operator Pulmonary Disease 09/08/23 Jasmina Aviles APRN ALBERENE STONE SETTER [address] [facility] [address] [place] [address] Assigned Pulmonology Provider 09/28/23 [place] [address] [place] [address] Assigned PCP 04/26/24
--- OUTSIDE RECORDS SUMMARY | 2024-06-24 18:06 | XMS_ITS | Encounter Summary ---
Author Organization [facility] Address [address] [place] [address]. [place] [address] Care Team Providers Care Surgical Appliances Salesperson Name Role Phone Traci Jasmina PITT WELD FITTER Unavailable [phone] Jasmina Aviles APRN WELD FITTER Unavailable [phone] Marcelina Soliman MD Primary Care Provider [phone] Marcelina Soliman MD Unavailable Encounter Details Date Type Department Care Team (Latest Contact Info) Description 06/16/2024 Travel Social History Tobacco Use Types Packs/Day [...] CDT Travel History Travel Start Travel End [place] 05/30/2024 06/02/2024 [facility] 05/23/2024 05/30/2024 documented as of this encounter Plan of Treatment Not on file documented as of this encounter Visit Diagnoses Not on filedocumented in this encounter Additional Health Concerns Assessment Noted Time PHQ-9 Depression Total Score: 11 024 11:17 AM CDT documented as of this encounter Care Teams Surgical Appliances Salesperson Relationship Specialty [place] [address] [place] [address] PCP - General 04/18/24 Jasmina Aviles APRN WELD FITTER [address] [address] Car Clerk [place] Pulmonary Disease 09/08/23 Jasmina Aviles APRN WELD FITTER [address] [address] Assigned Pulmonology Provider 09/28/23 [place] [address] [place] [address] Assigned PCP 04/26/24 documented as of this encounter
--- OUTSIDE RECORDS SUMMARY | 2024-06-24 18:06 | XMS_ITS | Encounter Summary ---
Author Organization [facility] Address [address] [place] [address] Care Team Providers Care Consumer Affairs Director Name Role Phone Marcelina Soliman MD Primary Care Provider Susan Camejo MD Unavailable + Elizabeth Roy APRN MECHANIC/WELDER Unavailable [phone] Marcelina Soliman MD Unavailable No Ref-Primary, Physician Primary Care Provider Jasmina Aviles APRN MECHANIC/WELDER Unavailable Lyn Simmons PA-C Unavailable [phone] Lyn Simmons PA-C Primary Care Provider Jasmina Aviles APRN MECHANIC/WELDER Unavailable Natty Diaz MD Primary Care Provider + Marcelina Soliman MD Primary Care Provider Marcelina Soliman MD Unavailable Reason for Visit * Reason Comments Medication Refill Encounter Details Date Type Department Care Team (Late st Contact Info) Description 06/13/[address] [address] Susan Camejo MD [facility] [address] [address] [place] [address] Medication Refill Social History Tobacco Use Types [...] CDT Travel History Travel Start Travel End [place] 05/30/2024 06/02/2024 [facility] 05/23/2024 05/30/2024 COVID-19 Exposure Response Date Recorded In the last month, have you been in contact with someone who was confirmed or suspected to have Coronavirus / COVID-19? No / Unsure 06/16/2021 3:06 PM CDT documented as of this encounter Miscellaneous Notes * Telephone Encounter - Marilynn Hayward RN - 06/15/2021 12:27 PM CDT Routing refill request to provider for review/approval because: Labs out of range: TSH, see recent NWD visit and advise ongoing refills TSH Date Value Ref Range Status 04/19/2021 4.12 (H) 0.40 - 4.00 mU/L Final 03/20/2017 1.82 0.40 - 4.00 mU/L Final Marilynn Hayward RN, BSN Message handled by CLINIC NURSE. documented in this encounter Plan of Treatment Not on file documented as of this encounter Visit Diagnoses Diagnosis Ina's thyroiditis Chronic lymphocytic thyroiditis documented in this encounter Additional Health Concerns Assessment Noted Time PHQ-9 Depression Total Score: 9 04/20/20 21 7:03 AM CDT documented as of this encounter Care Teams Consumer Affairs Director Relationship Specialty Start Date End Date [place], [place] [address] [place] [address] PCP - General Family Practice 06/02/16 12/05/22 No Ref-Primary, Physician PCP - General 08/07/23 09/25/23 Lyn Simmons PA-C [address] [place] [address] PCP - General 09/26/23 10/12/23 Natty Diaz MD [address] [place] [address] PCP - General upholsterer limousine and hearse 10/13/23 04/17/24 [place] [address] [place] [address] PCP - General 04/18/24 Susan Camejo MD PRIMARY ENT [address] [place], [place] [address] Assigned PCP 04/25/21 07/17/21 Elizabeth Roy APRN MECHANIC/WELDER PRIMARY ENT [address] [place] [address] Assigned PCP 07/18/21 02/17/23 [place] [address] [place] [address] Assigned PCP 02/18/23 09/08/23 Jasmina Aviles APRN MECHANIC/WELDER [address] [address] Enrollment Counselor Pulmonary Disease 09/08/23 Lyn Simmons PA-C [address] [place] [address] Assigned PCP 09/09/23 04/25/24 Jasmina Aviles APRN MECHANIC/WELDER [address] [address] Assigned Pulmonology Provider 09/28/23 [place] [address] [place] [address] Assigned PCP 04/26/24 documented as of this encounter
--- OUTSIDE RECORDS SUMMARY | 2024-06-24 18:06 | XMS_ITS | Encounter Summary ---
Author Organization [facility] Address [address] [place] [address] Care Team Providers Care Art Department Head Name Role Phone Marcelina Soliman MD Primary Care Provider [phone] Elizabeth Roy APRN BOARD RUNNER Unavailable [phone] Marcelina Soliman MD Unavailable No Ref-Primary, Physician Primary Care Provider Jasmina Aviles APRN BOARD RUNNER Unavailable Lyn Simmons PA-C Unavailable [phone] Lyn Simmons PA-C Primary Care Provider [phone] Jsamina Aviles APRN BOARD RUNNER Unavailable Natty Diaz MD Primary Care Provider + Marcelina Soliman MD Primary Care Provider [phone] Marcelina Soliman MD Unavailable Reason for Visit * Reason Comments Medication Refill Encounter Details Date Type Department Care Team (Late st Contact Info) Description 08/18/[address] [address] Elizabeth Roy APRN BOARD RUNNER [address] [place] [address] Medication Refill Social History Tobacco Use Types Packs/Day Years Used Date Smoking Tobacco: Former Cigarettes 0.5 5 Smokeless Tobacco: Never Comments:Quit in 02/1998 Alcohol Use Standard Drinks/Week Comments Yes 0 (1 standard drink = 0.6 oz pur e alcohol) once in awhile PHQ-2 Answer Date Recorded PHQ-2 Score 1 09/27/2021 Sex and Gender Information Value Date Recorded Sex Assigned at Female 04/14/2021 11:29 AM CDT Gender Identity Female 04/14/2021 11:29 AM CDT Sexual Orientation Straight 04/14/2021 11 :29 AM CDT Travel History Travel Start Travel End [place] 05/30/2024 06/02/2024 [facility] 05/23/2024 05/30/2024 documented as of this encounter Miscellaneous Notes * Telephone Encounter - Milagros Rascon RN - 08/18/2022 3:00 PM DIVISION TOLL WIRE CHIEF Medication is being filled for 1 time refill only due to: To get to scheduled appt Appt scheduled w/ Elizabeth Roy 09/30/22 Milagros Menon RN SION TOLL WIRE CHIEF documented in this encounter Plan of Treatment Not on file documented as of this encounter Visit Diagnoses Diagnosis Ina's thyroiditis Chronic lymphocytic thyroiditis documented in this encounter Additional Health Concerns Assessment Noted Time PHQ-9 Depression Total Score: 8 07/10/20 21 7:03 AM CDT documented as of this encounter Care Teams Art Department Head Relationship Specialty [place] [address] [place] [address] PCP - General Family Practice 06/02/16 12/05/22 No Ref-Primary, Physician PCP - General 08/07/23 09/25/23 Lyn Simmons PA-C [address] [place] [address] PCP - General 09/26/23 10/12/23 Natty Diaz MD [address] [facility] [address] [place] [address] PCP - General mission manager 10/13/23 04/17/24 [place] [address] [place] [address] PCP - General 04/18/24 Elizabeth Roy APRN BOARD RUNNER [address] [place] [address] Assigned PCP 07/18/21 02/17/23 [place] [address] [place] [address] Assigned PCP 02/18/23 09/08/23 Jasmina Aviles APRN BOARD RUNNER [address] [address] Manager Books Pulmonary Disease 09/08/23 Lyn Simmons PA-C [address] [place] [address] Assigned PCP 09/09/23 04/25/24 Jasmina Aviles APRN BOARD RUNNER [address] [address] Assigned Pulmonology Provider 09/28/23 [place] [address] [place] [address] Assigned PCP 04/26/24 documented as of this encounter
--- OUTSIDE RECORDS SUMMARY | 2024-06-24 18:06 | XMS_ITS | Encounter Summary ---
Author Organization [facility] Address [address] [place] [address]. [place] [address] Care Team Providers Care Assistant Brand Manager Name Role Phone Traci Jasmina PITT PHLEBOTOMY DIRECTOR Unavailable [phone] Lyn SimmonsC Unavailable [phone] Jasmina Aviles APRN PHLEBOTOMY DIRECTOR Unavailable [phone] Marcelina Soliman MD Primary Care Provider [phone] Encounter Details Date Type Department Care Team (Latest Contact Info) Description 04/23/2024 Travel Social History Tobacco Use Types Packs/Day Years Used Date Smoking Tobacco: Former Cigarettes 0.5 5 1 - 1997 Smokeless Tobacco: Never Comments:Quit in 02/1998 Alcohol Use Standard Drinks/Week Comments Yes 0 (1 standard drink = 0.6 oz pur e alcohol) once in awhile PHQ-2 Answer Date Recorded PHQ-2 Score 2 04/23/2024 Adolescent Education Answer Date Record ed Getting [...] CDT Travel History Travel Start Travel End [place] 05/30/2024 06/02/2024 [facility] 05/23/2024 05/30/2024 documented as of this encounter Plan of Treatment Not on file documented as of this encounter Visit Diagnoses Not on filedocumented in this encounter Additional Health Concerns Assessment Noted Time PHQ-9 Depression Total Score: 11 024 11:17 AM CDT documented as of this encounter Care Teams Assistant Brand Manager Relationship Specialty [place] [address] [place] [address] PCP - General 04/18/24 Jasmina Aviles APRN PHLEBOTOMY DIRECTOR [address] [address] Senior Hardware Engineer Pulmonary Disease 09/08/23 Lyn Simmons PA-C [address] [place] [address] Assigned PCP 09/09/23 04/25/24 Jasmina Aviles APRN PHLEBOTOMY DIRECTOR [address] [address] Assigned Pulmonology Provider 09/28/23 documented as of this encounter
--- OUTSIDE RECORDS SUMMARY | 2024-06-24 18:06 | XMS_ITS | Encounter Summary ---
Author Organization [facility] Address [address] [place] [address] Care Team Providers Care Trim Technician Name Role Phone Marcelina Soliman MD Primary Care Provider Susan Camejo MD Unavailable + Elizabeth Roy APRN OPHTHALMIC PATHOLOGIST Unavailable [phone] Marcelina Soliman MD Unavailable No Ref-Primary, Physician Primary Care Provider Jasmina Aviles APRN OPHTHALMIC PATHOLOGIST Unavailable Lyn Simmons PA-C Unavailable [phone] Lyn Simmons PA-C Primary Care Provider [phone] Jasmina Aviles APRN OPHTHALMIC PATHOLOGIST Unavailable Natty Diaz MD Primary Care Provider + Marcelina Soliman MD Primary Care Provider [phone] Marcelina Soliman MD Unavailable Encounter Details Date Type Department Care Team (Late st Contact Info) Description 06/15/2021 [facility] Medical Advice [address] [address] Susan Camejo MD PRIMARY ENT [id number] [place] [address] [address] [place] [address] Social History Tobacco Use Types Packs/Day Years [...] CDT Travel History Travel Start Travel End [place] 05/30/2024 06/02/2024 [facility] 05/23/2024 05/30/2024 COVID-19 Exposure Response Date Recorded In the last month, have you been in contact with someone who was confirmed or suspected to have Coronavirus / COVID-19? No / Unsure 06/16/2021 3:06 PM CDT documented as of this encounter Plan of Treatment Not on file documented as of this encounter Visit Diagnoses Not on filedocumented in this encounter Additional Health Concerns Assessment Noted Time PHQ-9 Depression Total Score: 9 04/20/20 21 7:03 AM CDT documented as of this encounter Care Teams Trim Technician Relationship Specialty Start [place] [address] [place] [address] PCP - General Family Practice 06/02/16 12/05/22 No Ref-Primary, Physician PCP - General 08/07/23 09/25/23 Lyn Simmons PA-C [address] [place] [address] PCP - General 09/26/23 10/12/23 Natty Diaz MD [address] [place] [address] [place] [address] PCP - General tank assembler 10/13/23 04/17/24 [place] [address] [facility] [place] [address] PCP - General 04/18/24 Susan Camejo MD PRIMARY ENT [address] [place], [place] [address] Assigned PCP 04/25/21 07/17/21 Elizabeth Roy APRN OPHTHALMIC PATHOLOGIST [facility]IMARY E[facility] [address] [facility] [address] [place] [address] Assigned PCP 07/18/21 02/17/23 [place] [address] [facility] [place] [address] Assigned PCP 02/18/23 09/08/23 Jasmina Aviles APRN OPHTHALMIC PATHOLOGIST [address] [address] Junior Staff Accountant Pulmonary Disease 09/08/23 Lyn Simmons PA-C [address] [facility] [place] [address] Assigned PCP 09/09/23 04/25/24 Jasmina Aviles APRN OPHTHALMIC PATHOLOGIST 1600 [facility][1] [address] [place] [address] Assigned Pulmonology Provider 09/28/23 [place] [address] [place] [address] Assigned PCP 04/26/24 documented as of this encounter
--- OUTSIDE RECORDS SUMMARY | 2024-06-24 18:06 | XMS_ITS | Encounter Summary ---
Author Organization [facility] Address [address] [place] [address] Care Team Providers Care Pbx Installer Name Role Phone Marcelina Soliman MD Primary Care Provider Delphine Baca PA-C Unavailable Marcelina Soliman MD Unavailable Marcelina Soliman MD Unavailable Marcelina Soliman MD Unavailable Susan Camejo MD Unavailable + Elizabeth Roy APRN PARATRANSIT DRIVER Unavailable Marcelina Soliman MD Unavailable No Ref-Primary, Physician Primary Care Provider Jasmina Aviles APRN PARATRANSIT DRIVER Unavailable [phone] Lyn Simmons-C Unavailable [phone] Lyn SimmonsC Primary Care Provider Jasmina Aviles APRN PARATRANSIT DRIVER Unavailable [phone] Natty Diaz MD Primary Care Provider + Marcelina Soliman MD Primary Care Provider Marcelina Soliman MD Unavailable Encounter Details Date Type Department Care Team (Late st Contact Info) Description 04/03/2018 [facility] [address] [place] [address] Ramón Diaz, RN Social History Tobacco Use Types Packs/Day Years Used Date Smoking Tobacco: Former Cigarettes 0.5 5 Smokeless Tobacco: Never Comments:Quit in 02/1998 Alcohol Use Standard Drinks/Week Comments Yes 0 (1 standard drink = 0.6 oz pur e alcohol) once in awhile Sex and Gender Information Value Date Recorded Sex Assigned at Female 04/14/2021 11:29 AM CDT Gender Identity Female 04/14/2021 11:29 AM CDT Sexual Orientation Straight 04/14/2021 11 :29 AM CDT Travel History Travel Start Travel End [place] 05/30/2024 06/02/2024 [facility] 05/23/2024 05/30/2024 documented as of this encounter Plan of Treatment Not on file documented as of this encounter Visit Diagnoses Not on filedocumented in this encounter Additional Health Concerns Assessment Noted Time PHQ-9 Depression Total Score: 3 04/01/20 17 7:28 AM CDT documented as of this encounter Care Teams Pbx Installer Relationship Specialty Start [place] [address] [place] [address] PCP - General Family Practice 06/02/16 12/05/22 Delphine Baca PA-C [address] [place] [address] PCP - Assigned PCP 08/19/18 09/15/18 [place] [address] [place] [address] PCP - Assigned PCP 08/21/16 08/18/18 [place] [address] [place] [address] PCP - Assigned PCP 09/16/18 11/06/18 No Ref-Primary, Physician PCP - General 08/07/23 09/25/23 Lyn Simmons PA-C [address] [facility] [place] [address] PCP - General 09/26/23 10/12/23 Natty Diaz MD [address] [facility] [address] [place] [address] PCP - General rivet spinner 10/13/23 04/17/24 [place] [address] [facility] [place] [address] PCP - General 04/18/24 [place] [address] [facility] [place] [address] Assigned PCP 09/16/18 04/24/21 Susan Camejo MD PRIMARY ENT [address] [place] [address] Assigned PCP 04/25/21 07/17/21 Elizabeth Roy APRN PARATRANSIT DRIVER PRIMARY ENT [address] [place] [address] Assigned PCP 07/18/21 02/17/23 [place] [address] [facility] [place] [address] Assigned PCP 02/18/23 09/08/23 Jasmina Aviles APRN PARATRANSIT DRIVER [address] [address] Marketing Director Assisted Living Pulmonary Disease 09/08/23 Lyn Simmons PA-C [address] [place] [address] Assigned PCP 09/09/23 04/25/24 Jasmina Aviles APRN PARATRANSIT DRIVER [address] [address] Assigned Pulmonology Provider 09/28/23 [place] [address] [place] [address] Assigned PCP 04/26/24 documented as of this encounter
--- OUTSIDE RECORDS SUMMARY | 2024-06-24 18:06 | XMS_ITS | Encounter Summary ---
Author Organization [facility] Address [address] [place] [address] Care Team Providers Care Help Desk Internship Name Role Phone Marcelina Soliman MD Primary Care Provider Elizabeth Roy APRN DUMPMAN Unavailable Marcelina Soliman MD Unavailable No Ref-Primary, Physician Primary Care Provider Jasmina Aviles APRN DUMPMAN Unavailable Lyn Simmons PA-C Unavailable [phone] Lyn Simmons PA-C Primary Care Provider [phone] Jasmina Aviles APRN DUMPMAN Unavailable Natty Diaz MD Primary Care Provider + Marcelina Soliman MD Primary Care Provider [phone] Marcelina Soliman MD Unavailable Reason for Visit * Reason Onset Date Comments Refill Request 07/28/2021 Encounter Details Date Type Department Care Team (Late st Contact Info) Description 07/28/2021 MyC Refill [address] [address] Elizabeth Roy APRN DUMPMAN [address] [place] [phone] Refill Request Social History Tobacco Use Types Packs/Day Years [...] CDT Travel History Travel Start Travel End [place] 05/30/2024 06/02/2024 [facility] 05/23/2024 05/30/2024 COVID-19 Exposure Response Date Recorded In the last month, have you been in contact with someone who was confirmed or suspected to have Coronavirus / COVID-19? No / Unsure 07/09/2021 10:56 AM CDT documented as of this encounter Miscellaneous Notes * Telephone Encounter - Melba Acosta RN - 07/28/2021 9:38 AM CST Elizabeth Roy CNP pt is requesting refill. Pt was told to follow-up with you 4- 6 weeks from 07/09 for medication management. Pt called in to request this refill. She is taking 2 tablets every night. She states the 2 tabs areworking for her. She does have a follow-up visit sched 08/19. Melba Acosta RN UP WORKER documented in this encounter Plan of Treatment Not on file documented as of this encounter Visit Diagnoses Diagnosis Insomnia due to other mental disorder documented in this encounter Additional Health Concerns Assessment Noted Time PHQ-9 Depression Total Score: 8 07/10/20 21 7:03 AM CDT documented as of this encounter Care Teams Help Desk Internship Relationship Specialty Start [place] [address] [place] [address] PCP - General Family Practice 06/02/16 12/05/22 No Ref-Primary, Physician PCP - General 08/07/23 09/25/23 Lyn Simmons PA-C [address] [place] [address] PCP - General 09/26/23 10/12/23 Natty Diaz MD [address] [address] [place] [address] PCP - General salesperson meats 10/13/23 04/17/24 [place] [address] [place], [place] [id number] PCP - General 04/18/24 Elizabeth Roy APRN DUMPMAN [address] [place], [place] [address] Assigned PCP 07/18/21 02/17/23 [place] [address] [place] [address] Assigned PCP 02/18/23 09/08/23 Jasmina Aviles APRN DUMPMAN 1600 [facility] 201 [place], [place] [id number] Reflow Operator Pulmonary Disease 09/08/23 Lyn Simmons PA-C [address] [place] [address] Assigned PCP 09/09/23 04/25/24 Jasmina Aviles APRN DUMPMAN 1600 [facility] [address] [place] [address] Assigned Pulmonology Provider 09/28/23 [place] [address] [place] [address] Assigned PCP 04/26/24 documented as of this encounter
--- OUTSIDE RECORDS SUMMARY | 2024-06-24 18:06 | XMS_ITS | Encounter Summary ---
Author Organization [facility] Address [address] [place] [address]. [place] [address] Care Team Providers Care Quarry Plug And Feather Driller Name Role Phone JoseJasmina thurman YOANDY FITTING ROOM OPERATOR Unavailable [phone] Lyn Simmons PA-C Unavailable [phone] Jasmina Aviles APRN FITTING ROOM OPERATOR Unavailable [phone] Marcelina Soliman MD Primary Care Provider Reason for Visit * Reason Comments Numbness Xmonths, numbness/se nsitivity present in the face - intermittent, radiating from the L to R side, Bilateral lower arms, pt states a feeling of immense pain when touching her face Recheck Medication Pt believes it could have started when she began taking rosuvastatin Encounter Details Date Type Department Care Team (Latest Contact Info) Description 04/23/2024 11:30 AM CDT Office Visit [address] [phone] Marcelina Soliman MD [address] [place] [id number] Gastroesophageal reflux disease without esophagitis (Primary Dx); Muscle ache; Generalized anxiety disorder; Hyperlipidemia LDL goal <100 Social History Tobacco Use Types Packs/Day Years [...] CDT Travel History Travel Start Travel End [place] 05/30/2024 06/02/2024 [facility] 05/23/2024 05/30/2024 documented as of this encounter Last Filed Vital Signs Vital Sign Reading Time Taken Comments Blood Pressure 104/70 04/23/2024 11:25 AM CDT Pulse 73 04/23/2024 11:25 AM CDT Temperature 36.6 ??C (97.8 ??F) 04/23/2024 11:25 AM C DT Respiratory Rate 10 04/23/2024 11:25 AM CDT Oxygen Saturation 98% 04/23/2024 11:25 AM CDT Inhaled Oxygen Concentration - - Weight 72.6 kg (160 lb) 04/23/2024 11:25 AM CDT Height 157.5 cm (5' 2) 04/23/2024 11:25 AM CDT Body Mass Index 29.26 04/23/2024 11:25 AM CDT documented in this encounter Progress Notes * Marcelina Soliman MD - 04/23/2024 11:30 AM CDT Assessment & Plan Problem List Items Addressed This Visit Generalized anxiety disorder Anxiety has been controlled on Citalopram. Gastroesophageal reflux disease without esophagitis - Primary Causing cough. Started on PPI with good response. Relevant Medications ondansetron (ZOFRAN) 4 MG tablet Muscle ache Pt has been having episodes of muscle aches all over the body, started 3 to 4 months ago, she feelsas if she has the flu, with body [...] call back in 3 to 4 weeks. Relevant Orders TSH with free T4 reflex CK total Hyperlipidemia LDL goal <100 Pt did have very high cholesterol suddenly with normal lipid level aroudn 3 years ago, so I think it is reasonable to stop Rosuvastatin for 3 months then recheck labs to see if these results were accurate. Pt to recheck lipids in 3 months. Relevant Orders Lipid panel reflex to direct LDL Fasting BMI Estimated body mass index is 29.26 kg/m?? as calculated from the following: Height as of this encounter: 1.575 m (5' 2). Weight as of this encounter: 72.6 kg (160 lb). Weight management plan: Discussed healthy diet and exercise guidelines Subjective Mamta is a 53 year old, presenting for the following health issues: Numbness (Xmonths, numbness/sensitivity present in the face - intermittent, radiating from the L toR side, Bilateral lower arms, pt states a feeling of immense pain when touching her face ) and Recheck Medication (Pt believes it could have started when she began taking rosuvastatin) 04/23/24 11:27 AM Additional Questions Roomed by AT History of Present Illness Reason for visit: Numbness and tingling in face and arms, sensitivity Symptom onset: More than a month Symptoms include: Face and arms Symptom intensity: Moderate Symptom progression: Staying the same Had these symptoms before: Yes Has tried/received treatment for these symptoms: No What makes it worse: No What makes it better: No She eats 2-3 servings of fruits and vegetables daily.She consumes 0 sweetened beverage(s) daily.Sheexercises with enough effort to increase her heart rate 20 to 29 minutes per day. She exercises with enough effort to increase her heart rate 3 or less days per week. She is taking medications regularly. Pain History: When did you first notice your pain? Xmonths Have you seen this provider for your pain in the past? No Where in your body do your have pain? Different spots of the face, changing from the L to the R, and bilateral arms Are you seeing anyone else for your pain? No What makes your pain better? None. What makes your pain worse? B=numbness, sensitivity How has pain affected your ability to work? Not applicable 12/20/2022 4:03 PM 09/07/2023 10:42 AM 04/23/2024 11:17 AM PHQ-9 SCORE PHQ-9 Total Score MyChart 6 (Mild depression) 11 (Moderate depression) PHQ-9 Total Score 5 6 11 07/09/2021 12:58 PM 12/20/2022 4:07 PM 04/23/2024 11:18 AM WARREN-7 SCORE Total Score 5 (mild anxiety) 5 (mild anxiety) Total Score 16 5 5 Review of Systems Constitutional, HEENT, cardiovascular, pulmonary, gi and gu systems are negative, except as otherwise noted. Objective BP 104/70 (BP Location: Left arm, Patient Position: Chair, Cuff Size: Adult Regular) Pulse 73 Temp 97.8 ??F (36.6 ??C) (Oral) Resp 10 Ht 1.575 m (5' 2) Wt 72.6 kg (160 lb) [facility] 04/02/2020 SpO2 98% BMI 29.26 kg/m?? Body mass index is 29.26 kg/m??. Physical Exam GENERAL: alert and no distress NECK: no adenopathy, no asymmetry, masses, or scars RESP: lungs clear to auscultation - no rales, rhonchi or wheezes CV: regular rate and rhythm, normal S1 S2, no S3 or S4, no murmur, click or rub, no peripheral edema MS: no gross musculoskeletal defects noted, no edema NEURO: Normal strength and tone, sensory exam grossly normal, mentation intact, speech normal, cranial nerves 2-12 intact, DTR's normal and symmetric , and gait normal including heel/toe/tandem walking Signed Electronically by: Marcelina Soliman MD documented in this encounter Miscellaneous Notes * Assessment & Plan Note - Marcelina Soliman MD - 04/23/2024 12:01 PM CDTAssociated Problem(s): Hyperlipidemia LDL goal <100 Pt did have very high cholesterol suddenly with normal lipid level aroudn 3 years ago, so I think it is reasonable to stop Rosuvastatin for 3 months then recheck labs to see if these results were accurate. Pt to recheck lipids in 3 months. * Assessment & Plan Note - Marcelina Soliman MD - 04/23/2024 11:43 AM CDTAssociated Problem(s): Generalized anxiety disorder Anxiety has been controlled on Citalopram. * Assessment & Plan Note - Marcelina Soliman MD - 04/23/2024 11:42 AM CDTAssociated Problem(s): Muscle ache Pt has been having episodes of muscle aches all over the body, started 3 to 4 months ago, she feelsas if she has the flu, with body [...] call back in 3 to 4 weeks. * Assessment & Plan Note - Marcelina Soliman MD - 04/23/2024 11:36 AM CDTAssociated Problem(s): Gastroesophageal reflux disease without esophagitis Causing cough. Started on PPI with good response. documented in this encounter Plan of Treatment Not on file documented as of this encounter Procedures Procedure Name Priority Date/Time Associated Diagnosis Comments TSH WITH FREE T4 REFLEX Routine 04/23/2024 11:54 AM CDT Muscle ache CK TOTAL Routine 04/23/2024 11:54 AM CDT Muscle ache documented in this encounter Results * (ABNORMAL) Lipid panel reflex to [...] Soliman MD LAB - BLOOD ORDERABL ES [facility] [address] [facility], [address] * CK total (04/23/2024 11:54 AM CDT) CK 39 26 - 192 U/L 04/23/2024 8:36 PM CDT [facility] Blood BLOOD SPECIMEN / Unknown Venipuncture / Unknown 04/23/2024 11:54 AM CDT 04/23/2024 11:54 AM CDT Marcelina Soliman MD LAB - BLOOD ORDERABL ES Performing Organization Address City/Va Hospital/ZIP Co de Phone Number [facility] [address] [facility], [address] * TSH with free T4 reflex (04/23/2024 11:54 AM CDT) TSH 2.00 0.30 - 4.20 uIU/mL 04/23/2024 8:36 PM CDT [facility] Blood BLOOD SPECIMEN / Unknown Venipuncture / Unknown 04/23/2024 11:54 AM CDT 04/23/2024 11:54 AM CDT Marcelina Soliman MD LAB - BLOOD ORDERABL ES [facility] [address] [facility], [address] documented in this encounter Visit Diagnoses Diagnosis Gastroesophageal reflux disease without esophagitis- Primary Esophageal reflux Muscle ache Mylagia and myositis, unspecified Generalized anxiety disorder Hyperlipidemia LDL goal <100 Other and unspecified hyperlipidemia documented in this encounter Additional Health Concerns Assessment Noted Time PHQ-9 Depression Total Score: 11 024 11:17 AM CDT documented as of this encounter Care Teams Quarry Plug And Feather Driller Relationship Specialty [place] [address] [place] [address] PCP - General 04/18/24 Jasmina Aviles APRN FITTING ROOM OPERATOR [address] [address] Advertising Clerk Pulmonary Disease 09/08/23 Lyn Simmons PA-C [address] [place] [phone] Assigned PCP 09/09/23 04/25/24 Jasmina Aviles APRN FITTING ROOM OPERATOR [address] [address] Assigned Pulmonology Provider 09/28/23 documented as of this encounter
--- OUTSIDE RECORDS SUMMARY | 2024-06-24 18:06 | XMS_ITS | Encounter Summary ---
Author Organization [facility] Address [address] [place] [address]. [place] [address] Care Team Providers Care Service Order Taker Name Role Phone Joseolman Jasmina YOANDY INSIDE OUTSIDE SALES REPRESENTATIVE Unavailable [phone] Jasmina Aviles APRN INSIDE OUTSIDE SALES REPRESENTATIVE Unavailable [phone] Marcelina Soliman MD Primary Care Provider Marcelina Soliman MD Unavailable Reason for Visit * Reason Comments Lab Only Pt is getting labs d rawn RECHECK Follow up on labs Encounter Details Date Type Department Care Team (Late st Contact Info) Description 06/17/2024 11:30 AM CDT Office Visit [address] [phone] Marcelina Soliman MD [address] [place] [id number] Nausea (Primary Dx); Hyperlipidemia LDL goal <100 Social History Tobacco [...] CDT Travel History Travel Start Travel End [place] 05/30/2024 06/02/2024 [facility] 05/23/2024 05/30/2024 documented as of [...] Mass Index 29.63 06/17/2024 11:15 AM CDT documented in this encounter Progress Notes * Marcelina Soliman MD - 06/17/2024 11:30 AM CDT Assessment & Plan Nausea Pt gets nausea occasionally, will refill zofran as needed. - ondansetron (ZOFRAN) 4 MG tablet; Take 1 tablet (4 mg) by mouth every 8 hours as needed for nausea. Hyperlipidemia LDL goal <100 Off any statin medications, will check lipid profile and will follow up with the results. - Lipid panel reflex to direct LDL Fasting Subjective Mamta is a 53 year old, presenting for the following health issues: Lab Only (Pt is getting labs drawn) and RECHECK (Follow up on labs) 06/17/2024 11:14 AM Additional Questions Roomed by lavonne kelly Accompanied by self History of Present Illness Hyperlipidemia: She presents for follow up of hyperlipidemia. She is not taking medication to lowercholesterol. She is having myalgia or other side effects to statin medications. She eats 2-3 servings of fruits and vegetables daily.She consumes 0 sweetened beverage(s) daily.Sheexercises with enough effort to increase her heart rate 9 or less minutes per day. She exercises with enough effort to increase her heart rate 3 or less days per week. She is taking medications regularly. Pt has stopped Rosuvastatin and felt much better, she denies any muscle aches, and no numbness feeling that she used to get. She checked her cholesterol level at the [facility] which showed high cholesterol. Pt had elevated cholesterol levels a couple weeks ago. Would like labs drawn again and would like to discuss if cholesterol meds would be needed. Objective BP 123/81 (BP Location: Left arm, Patient Position: Sitting, Cuff Size: Adult Regular) Pulse 80 Temp 98.7 ??F (37.1 ??C) (Oral) Resp 14 Ht 1.575 m (5' 2) Wt 73.5 kg (162 lb) [facility] 04/02/2020 SpO2 100% BMI 29.63 kg/m?? Body mass index is 29.63 kg/m??. Physical Exam GENERAL: alert and no distress Signed Electronically by: Marcelina Soliman MD documented in this encounter Plan of Treatment Not on file documented as of this encounter Procedures Procedure Name Priority Date/Time Associated Diagnosis Comments LIPID REFLEX TO DIRECT LDL PANEL Routine 06/17/2024 11:41 AM CDT Hyperlipidemia LDL goal <100 documented in this encounter Results * (ABNORMAL) Lipid panel reflex to direct LDL Fasting (06/17/2024 11:41 AM CDT) [facility] Cholesterol 249(H) <200 mg/dL 06/17/2024 8:57 PM [...] LAB - BLOOD ORDERABL ES [facility] [place] [facility] [address] [facility], [address] [place] [address] documented in this encounter Visit Diagnoses Diagnosis Nausea- Primary Nausea alone Hyperlipidemia LDL goal <100 Other and unspecified hyperlipidemia documented in this encounter Additional Health Concerns Assessment Noted Time PHQ-9 Depression Total Score: 7 06/17/20 24 11:17 AM CDT documented as of this encounter Care Teams Service Order Taker Relationship Specialty [place] [address] [facility] [place] [address] PCP - General 04/18/24 Jasmina Aviles APRN INSIDE OUTSIDE SALES REPRESENTATIVE [address] [address] Haul Driver Pulmonary Disease 09/08/23 Jasmina Aviles APRN INSIDE OUTSIDE SALES REPRESENTATIVE [address] [address] Assigned Pulmonology Provider 09/28/23 [place] [address] [place] [address] Assigned PCP 04/26/24 documented as of this encounter
--- OUTSIDE RECORDS SUMMARY | 2024-06-24 18:06 | XMS_ITS | Encounter Summary ---
Author Organization [facility] Address [address] [place] [address]. [place] [address] Care Team Providers Care Adjunct Physics Instructor Name Role Phone Traci Jasmina PITT NURSING PROJECT COORDINATOR Unavailable [phone] Jasmina Aviles APRN NURSING PROJECT COORDINATOR Unavailable [phone] Marcelina Soliman MD Primary Care Provider [phone] Marcelina Soliman MD Unavailable Encounter Details Date Type Department Care Team (Latest Contact Info) Description 06/17/2024 Travel Social History Tobacco Use Types Packs/Day [...] CDT Travel History Travel Start Travel End [place] 05/30/2024 06/02/2024 [facility] 05/23/2024 05/30/2024 documented as of this encounter Plan of Treatment Not on file documented as of this encounter Visit Diagnoses Not on filedocumented in this encounter Additional Health Concerns Assessment Noted Time PHQ-9 Depression Total Score: 7 06/17/20 11:17 AM CDT documented as of this encounter Care Teams Adjunct Physics Instructor Relationship Specialty [place] [address] [place] [address] PCP - General 04/18/24 Jasmina Aviles APRN NURSING PROJECT COORDINATOR [address] [address] Moisture Machine Tender Pulmonary Disease 09/08/23 Jasmina Aviles APRN NURSING PROJECT COORDINATOR [address] [address] Assigned Pulmonology Provider 09/28/23 [place] [address] [place] [address] Assigned PCP 04/26/24 documented as of this encounter
--- OUTSIDE RECORDS SUMMARY | 2024-06-24 18:06 | XMS_ITS | Encounter Summary ---
Author Organization [facility] Address [address] [place] [address] Care Team Providers Care Reimbursement Representative Name Role Phone Jasmina Aviles APRN GUINEA PIG BREEDER Unavailable [phone] Jasmina Aviles APRN GUINEA PIG BREEDER Unavailable [phone] Marcelina Soliman MD Primary Care Provider [phone] Marcelina Soliman MD Unavailable Reason for Referral * Rehab Therapy Physical Therapy (Routine) - Pending Review Specialty Diagnoses / Procedures Referred By Frank browne Referred To Contact Diagnoses Pelvic floor dysfunction Disorder of muscle, unspecified Monik Pritchett MD [address] [address] Referral ID Status Reason Start Date Expiration Date V isits Requested Visits Authorized [id number] Pending Review 05/01/2024 05/01/2025 1 1 Question Answer Course of Action: Evaluation and Treatment Specialty Services: Pelvic Health Pelvic Health: Other My Clinical Question Is: pelvic floor dysfunction - mild pelvic organ prolapse, urinary leaking/voiding difficulty Scheduling Instructions: [employer] [facility] will call you to coordinate your care as prescribed by your provider. If you don't hear from a telephone sales representative within 2 business days, please call . Comments Please be aware that coverage of these services is subject to the terms and limitations of your health insurance plan. Call member services at your health plan with any benefit or coverage questions. [facility] will call you to coordinate your care as prescribed by your provider. If you don't hear from a telephone sales representative within 2 business days, please call . Encounter Details Date Type Department Care Team (Latest Contact Info) Description 05/01/2024 Transcribe Orders GENERIC EXTERNAL DATA DEPARTMENT Monik Pritchett MD [address] [address] Pelvic floor dysfunction (Primary Dx); Disorder of muscle, unspecified Social History Tobacco Use Types Packs/Day Years [...] CDT Travel History Travel Start Travel End [place] 05/30/2024 06/02/2024 [facility] 05/23/2024 05/30/2024 documented as of this encounter Plan of Treatment Scheduled Referrals Name Type Priority Associated Diagnoses Orde r Schedule Physical Therapy Nut Blanker Operator Referral Referral Routine Pelvic floor dysfunction Disorder of muscle, unspecified Ordered: 05/01/2024 documented as of this encounter Visit Diagnoses Diagnosis Pelvic floor dysfunction- Primary Pelvic muscle wasting Disorder of muscle, unspecified documented in this encounter Additional Health Concerns Assessment Noted Time PHQ-9 Depression Total Score: 11 024 11:17 AM CDT documented as of this encounter Care Teams Reimbursement Representative Relationship Specialty [place] [address] [place] [address] PCP - General 04/18/24 Jasmina Aviles APRN GUINEA PIG BREEDER [address] [address] Principal Electrical Engineer Pulmonary Disease 09/08/23 Jasmina Aviles APRN GUINEA PIG BREEDER [address] [address] Assigned Pulmonology Provider 09/28/23 [place] [address] [place] [address] Assigned PCP 04/26/24 documented as of this encounter
--- OUTSIDE RECORDS SUMMARY | 2024-06-24 18:06 | XMS_ITS | Encounter Summary ---
Author Organization [facility] Address [address] [place] [address] Care Team Providers Care Color Worker Name Role Phone Marcelina Soliman MD Primary Care Provider Marcelina Soliman MD Unavailable Susan Camejo MD Unavailable + Elizabeth Roy APRN ATTENDANT HONOR BAR Unavailable Marcelina Soliman MD Unavailable No Ref-Primary, Physician Primary Care Provider Jasmina Aviles APRN ATTENDANT HONOR BAR Unavailable Lyn Simmons PA-C Unavailable [phone] Lyn Simmons PA-C Primary Care Provider Jasmina Aviles APRN ATTENDANT HONOR BAR Unavailable Natty Diaz MD Primary Care Provider + Marcelina Soliman MD Primary Care Provider Marcelina Soliman MD Unavailable Reason for Visit * Reason Onset Date Comments Lab Result Notice 04/22/2021 Encounter Details Date Type Department Care Team (Late st Contact Info) Description 04/22/2021 [facility] [address] [phone] Susan Camejo MD PRIMARY ENT [address] [place] [address] Lab Result Notice Social History Tobacco Use Types Packs/Day Years [...] CDT Travel History Travel Start Travel End [place] 05/30/2024 06/02/2024 [facility] 05/23/2024 05/30/2024 COVID-19 Exposure Response Date Recorded In the last month, have you been in contact with someone who was confirmed or suspected to have Coronavirus / COVID-19? No / Unsure 04/23/2021 1:20 PM CDT documented as of this encounter Miscellaneous Notes * Telephone Encounter - Marilynn Hayward RN - 04/22/2021 3:34 PM CDT Routed to [facility], see [employer] message and advise labs from 04/19/21 Mariylnn Hayward RN, BSN Message handled by CLINIC NURSE. documented in this encounter Plan of Treatment Not on file documented as of this encounter Visit Diagnoses Not on filedocumented in this encounter Additional Health Concerns Assessment Noted Time PHQ-9 Depression Total Score: 9 04/20/20 7:03 AM CDT documented as of this encounter Care Teams Color Worker Relationship Specialty Start [place] [address] [place] [address] PCP - General Family Practice 06/02/16 12/05/22 No Ref-Primary, Physician PCP - General 08/07/23 09/25/23 Lyn Simmons PA-C [address] [facility] [phone] PCP - General 09/26/23 10/12/23 Natty Diaz MD [address] [facility] [address] [place] [id number] PCP - General livestock feeder 10/13/23 04/17/24 [place] [address] [place] [address] PCP - General 04/18/24 [place] [address] [place] [address] Assigned PCP 09/16/18 04/24/21 Susan Camejo MD PRIMARY ENT [address] [place] [address] Assigned PCP 04/25/21 07/17/21 Elizabeth Roy APRN ATTENDANT HONOR BAR PRIMARY ENT [address] [place], [place] [address] Assigned PCP 07/18/21 02/17/23 [place] [address] [place] [address] Assigned PCP 02/18/23 09/08/23 Jasmina Aviles APRN ATTENDANT HONOR BAR [address] [address] Golf Cart Assembler Pulmonary Disease 09/08/23 Lyn Simmons PA-C [address] [place] [address] Assigned PCP 09/09/23 04/25/24 Jasmina Aviles APRN ATTENDANT HONOR BAR [address] [address] Assigned Pulmonology Provider 09/28/23 [place] [address] [place] [address] Assigned PCP 04/26/24 documented as of this encounter
--- OUTSIDE RECORDS SUMMARY | 2024-06-24 18:06 | XMS_ITS | Encounter Summary ---
Author Organization [facility] Address [address] [place] [address] Care Team Providers Care Grinder Operator Tool Name Role Phone Marcelina Soliman MD Primary Care Provider Elizabeth Roy APRN RIM TURNING FINISHER Unavailable Marcelina Soliman MD Unavailable No Ref-Primary, Physician Primary Care Provider Jasmina Aviles APRN RIM TURNING FINISHER Unavailable Lyn Simmons PA-C Unavailable [phone] Lyn Simmons PA-C Primary Care Provider [phone] Jasmina Aviles APRN RIM TURNING FINISHER Unavailable Natty Diaz MD Primary Care Provider + Marcelina Soliman MD Primary Care Provider [phone] Marcelina Soliman MD Unavailable Reason for Visit * Reason Onset Date Comments Medication Refill Refill Request 07/18/2021 Encounter Details Date Type Department Care Team (Late st Contact Info) Description 07/18/[address] [address] Elizabeth Roy APRN RIM TURNING FINISHER [address] [place] [phone] Medication Refill; Refill Request Social History Tobacco Use Types [...] CDT Travel History Travel Start Travel End [place] 05/30/2024 06/02/2024 [facility] 05/23/2024 05/30/2024 COVID-19 Exposure Response [...] documented as of this encounter Care Teams Grinder Operator Tool Relationship Specialty [place] [address] [place] [address] PCP - General Family Practice 06/02/16 12/05/22 No Ref-Primary, Physician PCP - General 08/07/23 09/25/23 Lyn Simmons PA-C [address] [place] [address] PCP - General 09/26/23 10/12/23 Natty Diaz MD [address] [facility] [address] [place] [address] PCP - General cardroom manager 10/13/23 04/17/24 [place] [address] [facility] [address] PCP - General 04/18/24 Elizabeth Roy APRN RIM TURNING FINISHER [address] [facility] [address] Assigned PCP 07/18/21 02/17/23 [place] [address] [facility] [address] Assigned PCP 02/18/23 09/08/23 Jasmina Aviles APRN RIM TURNING FINISHER [address] [address] Application Security Engineer Pulmonary Disease 09/08/23 Lyn Simmons PA-C [address] [place] [address] Assigned PCP 09/09/23 04/25/24 Jasmina Aviles APRN RIM TURNING FINISHER [address] [address] Assigned Pulmonology Provider 09/28/23 [place] [address] [facility] [address] Assigned PCP 04/26/24 documented as of this encounter
--- OUTSIDE RECORDS SUMMARY | 2024-06-24 18:06 | XMS_ITS | Encounter Summary ---
Author Organization [facility] Address [address] [place] [address] Care Team Providers Care Blemish Remover Name Role Phone Marcelina Soliman MD Primary Care Provider Elizabeth Roy APRN MACHINE STRAP BUCKLER Unavailable [phone] Marcelina Soliman MD Unavailable No Ref-Primary, Physician Primary Care Provider Jasmina Aviles APRN MACHINE STRAP BUCKLER Unavailable Lyn Simmons PA-C Unavailable [phone] Lyn Simmons PA-C Primary Care Provider [phone] Jasmina Aviles APRN MACHINE STRAP BUCKLER Unavailable Natty Diaz MD Primary Care Provider + Marcelina Soliman MD Primary Care Provider Marcelina Soliman MD Unavailable Encounter Details Date Type Department Care Team (Late st Contact Info) Description 11/29/2022 MyC Medical Advice [address] [address] Tish Alatorre, APPRENTICE LINEMAN THIRD STEP Social History Tobacco Use Types Packs/Day Years [...] CDT Travel History Travel Start Travel End [place] 05/30/2024 06/02/2024 [facility] 05/23/2024 05/30/2024 documented as of this encounter Plan of Treatment Not on file documented as of this encounter Visit Diagnoses Not on filedocumented in this encounter Additional Health Concerns Assessment Noted Time PHQ-9 Depression Total Score: 8 07/10/20 21 7:03 AM CDT documented as of this encounter Care Teams Blemish Remover Relationship Specialty [place] [address] [place] [address] PCP - General Family Practice 06/02/16 12/05/22 No Ref-Primary, Physician PCP - General 08/07/23 09/25/23 Lyn iSmmons PA-C [address] [place] [address] PCP - General 09/26/23 10/12/23 Natty Diaz MD [address] [phone] PCP - General treating engineer helper 10/13/23 04/17/24 [place] [address] [place] [address] PCP - General 04/18/24 Elizabeth Roy APRN MACHINE STRAP BUCKLER [address] [facility] [place] [address] Assigned PCP 07/18/21 02/17/23 [place] [address] [facility] [place] [address] Assigned PCP 02/18/23 09/08/23 Jasmina Aviles APRN MACHINE STRAP BUCKLER [address] [address] Consumer Electronic Retail Specialist Pulmonary Disease 09/08/23 Lyn Simmons PA-C [address] [place] [address] Assigned PCP 09/09/23 04/25/24 Jasmina Aviles APRN MACHINE STRAP BUCKLER [address] [address] Assigned Pulmonology Provider 09/28/23 [place] [address] [facility] [place] [address] Assigned PCP 04/26/24 documented as of this encounter
--- OUTSIDE RECORDS SUMMARY | 2024-06-24 18:07 | XMS_ITS | Encounter Summary ---
Author Organization [facility] Address [address] [place] [address] Care Team Providers Care Pile Trimmer Name Role Phone Tish Wilkinson PA-C Primary Care Provid er Marcelina Soliman MD Primary Care Provider Natty Diaz MD Primary Care Provider + JourdanMarcelina pina MD Primary Care Provider Delphine Baca PA-C Unavailable Marcelina Soliman MD Unavailable Marcelina Soliman MD Unavailable Marcelina Soliman MD Unavailable Susan Camejo MD Unavailable + Elizabeth Roy APRN INSTRUCTOR ADJUNCT PHARMACY TECHNICIAN Unavailable Marcelina Soliman MD Unavailable No Ref-Primary, Physician Primary Care Provider Jasmina Aviles APRN INSTRUCTOR ADJUNCT PHARMACY TECHNICIAN Unavailable Lyn Simmons PA-C Unavailable [phone] Lyn Simmons PA-C Primary Care Provider Jasmina Aviles APRN INSTRUCTOR ADJUNCT PHARMACY TECHNICIAN Unavailable Natty Diaz MD Primary Care Provider + Marcelina Soliman MD Primary Care Provider Marcelina Soliman MD Unavailable Encounter Details Date Type Department Care Team (Late st Contact Info) Description 06/16/2014 [facility] Medical Advice [facility] [address] [place] [phone] Melissa Martínez APRN INSTRUCTOR ADJUNCT PHARMACY TECHNICIAN [address] [facility] [place] [id number] Social History Tobacco Use Types Packs/Day Years [...] CDT Travel History Travel Start Travel End [place] 05/30/2024 06/02/2024 [facility] 05/23/2024 05/30/2024 documented as of this encounter Plan of Treatment Not on file documented as of this encounter Visit Diagnoses Not on filedocumented in this encounter Care Teams Pile Trimmer Relationship Specialty Start Date End Date Tish Wilkinson PA-C [address] [facility] [address] [place] [address] PCP - General Family Practice 07/20/11 06/17/14 [place] [address] [place] [address] PCP - General Family Practice 06/18/14 01/13/15 Natty Diaz MD [address] [facility] [address] [place] [phone] PCP - General fitness supervisor 01/14/15 06/01/16 [place] [address] [place] [address] PCP - General Family Practice 06/02/16 12/05/22 Delphine Baca PA-C [address] [place] [address] PCP - Assigned PCP 08/19/18 09/15/18 [place] [address] [place] [address] PCP - Assigned PCP 08/21/16 08/18/18 [place] [address] [place] [address] PCP - Assigned PCP 09/16/18 11/06/18 No Ref-Primary, Physician PCP - General 08/07/23 09/25/23 Lyn Simmons PA-C [address] [place] [address] PCP - General 09/26/23 10/12/23 Natty Diaz MD [address] [facility] [address] [place] [address] PCP - General fitness supervisor 10/13/23 04/17/24 [place] [address] [facility] [place] [address] PCP - General 04/18/24 [place] [address] [facility] [place] [address] Assigned PCP 09/16/18 04/24/21 Susan Camejo MD [facility] [address] [place], [place] [address] Assigned PCP 04/25/21 07/17/21 Elizabeth Roy APRN INSTRUCTOR ADJUNCT PHARMACY TECHNICIAN [facility] [address] [place] [address] Assigned PCP 07/18/21 02/17/23 [place] [address] [facility] [address] Assigned PCP 02/18/23 09/08/23 Jasmina Aviles APRN INSTRUCTOR ADJUNCT PHARMACY TECHNICIAN [address] [address] Cat Sitter Pulmonary Disease 09/08/23 Lyn Simmons PA-C [address] [facility] [address] Assigned PCP 09/09/23 04/25/24 Jasmina Aviles APRN INSTRUCTOR ADJUNCT PHARMACY TECHNICIAN [address] [facility] [address] [place] [address] Assigned Pulmonology Provider 09/28/23 [place] [address] [place] [address] Assigned PCP 04/26/24 documented as of this encounter
--- OUTSIDE RECORDS SUMMARY | 2024-06-24 18:07 | XMS_ITS | Encounter Summary ---
Author Organization [facility] Address [address] [place] [address] Care Team Providers Care Document Clerk Name Role Phone Natty Diaz MD Primary Care Provider + Marcelina Soliman MD Primary Care Provider [phone] Delphine Baca PA-C Unavailable Marcelina Soliman MD Unavailable Marcelina Soliman MD Unavailable Marcelina Soliman MD Unavailable Susan Camejo MD Unavailable + Elizabeth Roy APRN ADHESIVE SPRAYER Unavailable Marcelina Soliman MD Unavailable No Ref-Primary, Physician Primary Care Provider Jasmina Aviles APRN ADHESIVE SPRAYER Unavailable Lyn Simmons PA-C Unavailable [phone] Lyn Simmons PA-C Primary Care Provider Jasmina Aviles APRN ADHESIVE SPRAYER Unavailable Natty Diaz MD Primary Care Provider + Marcelina Soliman MD Primary Care Provider Marcelina Soliman MD Unavailable Encounter Details Date Type Department Care Team (Late st Contact Info) Description 09/21/2015 MyC Medical Advice [facility] [address] [place] [address] Zoe Anders, TOBACCO WRAPPING MACHINE TENDER Social History Tobacco Use Types Packs/Day Years [...] CDT Travel History Travel Start Travel End [place] 05/30/2024 06/02/2024 [facility] 05/23/2024 05/30/2024 documented as of this encounter Plan of Treatment Not on file documented as of this encounter Visit Diagnoses Not on filedocumented in this encounter Care Teams Document Clerk Relationship Specialty Start Date End Date Natty Diaz MD [address] [facility] [address] [place] [address] PCP - General manager field service 01/14/15 06/01/16 [place] [address] [place] [address] PCP - General Family Practice 06/02/16 12/05/22 Delphine Baca PA-C [address] [place] [address] PCP - Assigned PCP 08/19/18 09/15/18 [place] [address] [place] [address] PCP - Assigned PCP 08/21/16 08/18/18 [place] [address] [facility] [address] PCP - Assigned PCP 09/16/18 11/06/18 No Ref-Primary, Physician PCP - General 08/07/23 09/25/23 Lyn Simmons PA-C [address] [place] [address] PCP - General 09/26/23 10/12/23 Natty Diaz MD [address] [address] [place] [address] PCP - General manager field service 10/13/23 04/17/24 [place] [address] [place] [address] PCP - General 04/18/24 [place] [address] [place] [address] Assigned PCP 09/16/18 04/24/21 Susan Camejo MD [facility] [address] [place] [address] Assigned PCP 04/25/21 07/17/21 Elizabeth Roy APRN ADHESIVE SPRAYER [facility] [address] [place] [address] Assigned PCP 07/18/21 02/17/23 [place] [address] [place] [address] Assigned PCP 02/18/23 09/08/23 Jasmina Aviles APRN ADHESIVE SPRAYER [address] [address] [place] Pulmonary Disease 09/08/23 Lyn Simmons PA-C [address] [place] [address] Assigned PCP 09/09/23 04/25/24 Jasmina Aviles APRN ADHESIVE SPRAYER [address] [address] Assigned Pulmonology Provider 09/28/23 [place] [address] [place] [address] Assigned PCP 04/26/24 documented as of this encounter
--- OUTSIDE RECORDS SUMMARY | 2024-06-24 18:07 | XMS_ITS | Data Portability ---
Author Organization TALA Emery [employer], [id number] Address [address] [address] Assessment Encounter Date Assessment Date Assessment LastModified by Organization Details LastModified Time 05/23/2023 05/23/2023 This service was provided using telemedicine including synchronous audio and/or video approved technology. The patient verbally Consents to telemedicine services, virtual check-ins and evisits. The patient confirms she is at home or private location Telemedicine consultation via Synchronous Audio and Video Call. I spent a total of 15 minutes providing care for this patient including: preparing to see the patient, obtaining a medical history, completing a medically appropriate physical exam, completing documentation of visit information and plans in the EMR, counseling the patient and/or caregiver regarding her diagnosis, treatment options and follow up plans, as well as any necessary communication of subsequent test results to the patient, , , Assessment and Plan for this visit include the following: [email or web address] Not available 05/23/2023 17:12:48 05/01/2024 05/01/2024 I spent a total of 30 minutes providing care for this patient including: preparing to see the patient, obtaining a medical history, completing a medically appropriate physical exam, completing documentation of visit information and plans in the EMR, counseling the patient and/or caregiver regarding her diagnosis, treatment options and follow up plans, as well as any necessary communication of subsequent test results to the patient, reviewing medical records, nii Not available 05/01/2024 20:29:46 Plan of Treatment Reminders Order Date Submit Date Provider Last Modified By Organization Details Last Modified Time Details Appointments G_ANN UAL EXAM 2023 04:00P M Dr. Nova Huepfel Not available Not available Not available Lab Pap test, slide (s), cervi dayna 2022 023 [facility], [address], [address], [place], [address], 07/12/2023 08:05:09 cultu re, urine 2023 024 [facility], [address], [address], [place], [address], 05/02/2024 11:45:15 Referral behav ioral healt h refer eric - Lashay ent agree s to be conta cted by the [facility] team and agree s to compl ete initi al and addit ional asses sment s as indic ated. Cecil yang is aware that usual co-pa ys and/o r farooq- billie carson will apply to the servi ce being delrobert ered. 2021 022 [email or web address] [facility] (Virtual Only), [address] [place], [address], 08/17/2022 17:51:14 pelvi c floor thera py refer eric - Iman e call cecil yang to sched ule pelvi c floor PT for mild pelvi c organ prola pse, urina ry leaki ng/vo iding diffi culty . 2023 024 [email or web address] s [facility], [address], [place], [address], 05/02/2024 09:59:35 Procedures None recor ded. Surgeries None recor ded. Imaging None recor ded. Medication Orders valac yclov ir 1 gram table t 2020 021 [email or web address] [id number], [address], [place], [address], 07/06/2023 16:23:50 oxyco done 5 mg table t 2020 021 [email or web address] [id number], [address], [place], [address], 06/10/2021 15:48:46 cital opram 40 mg table t 2021 022 [facility], [address], [place], [address], 05/16/2022 17:57:11 Republic ril 50 mg capsu le 2022 023 [email or web address] [facility], [address], [place], [address], 07/06/2023 16:23:40 triam cinol one aceto nide 0.5 % topic al cream 2022 023 [facility], [address], [place], [address], 07/06/2023 17:07:45 clobe tasol 0.05 % topic al ointm ent 2023 024 [id number], [address], [place], [address], 05/01/2024 11:24:44 estra diol 0.01% (0.1 mg/gr am) vagin al cream 2023 024 [id number], [address] , [place], [address], 05/01/2024 11:24:44 Patient TargetsNo targets recorded. Patient Instructions Encounter Date Encounter Id Patient Instructions Last Modified By Organization Details Last Modified Time 05/16/2022 [id number] - Encouraged breast self-awareness and monthly breast exams. - Recommend mammogram annually starting at age 40. - Encouraged regular exercise. - Discussed calcium, vitamin D, and weight bearing exercise for bone health. - Discussed osteoporosis screening guidelines. - Recommend colonoscopy starting at age 50. 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 - Reviewed current cervical cancer screening guidelines. - Discussed concern with post-menopausal bleeding. Discussed common physical changes and central weight gain. We discussed when treatment is indicated for control of symptoms. [email or web address] Not available 05/16/2022 18:01:14 Reason for Referral Breast Center Referral for P ain of breast left breast pain- upper outer quadrant, family hx of breast CA pt is scheduled for left breast ultrasound/possible diagnostic mammogram. okay of any additional imaging/testing as recommended by supervising radiologists Referring Physician: Nova Pritchett, [employer]OE [employer]TER, Encounter Date: 06/10/2021 Behavioral Health Referral f or Anxiety Patient agrees to be contacted by the [facility] team and agrees to complete initial and additional assessments as indicated. Patient is aware that usual co-pays and/or cost-sharing will apply to the service being delivered. Referring Physician: Samson Cho [employer] SHOE [employer]TER, Encounter Date: 05/16/2022 Pelvic Floor Therapy Referra l for Pelvic floor dysfunction Please call patient to schedule pelvic floor PT for mild pelvic organ prolapse, urinary leaking/voiding difficulty. Referring Physician: Nova Pritchett [employer] SHOE [employer]TER, Encounter Date: 05/01/2024 Results Created Date Observation Date Name Description Value Unit Range Abnormal Flag Note LastModifiedBy Organization Detail LastModifiedTime 07/06/20 23 07/06/2023 HPV HIGH RISK TYPES DNA CERVI DAYNA other HR HPV Negati ve negati ve Not Available [address], [place], [address], 07/12/2023 08:04:51 07/06/20 23 07/06/2023 HPV HIGH RISK TYPES DNA CERVI DAYNA HPV16 DNA Negati ve negati ve Not Available [address], [place], [address], 07/12/2023 08:04:51 07/06/20 23 07/06/2023 HPV HIGH RISK TYPES DNA CERVI DAYNA HPV18 DNA Negati ve negati ve Not Available [address], [place], [address], 07/12/2023 08:04:51 07/06/20 23 07/06/2023 HPV HIGH RISK TYPES DNA CERVI DAYNA final diagnosis See note below This patie nt's sampl e is negat segun for HPV DNA. This test was devel oped and its perfo rmanc e bay cteri stics deter mined by [facility] . It has not been clear ed or appro susy by the FDA. The labor atory is regul ated under CLIA as quali fied to perfo rm high- compl exity testi ng. This test is used for clini dayna purpo ses. It shoul d not be regar ded as inves tigat ional or for resea rch. METHO DOLOG Y: The [place] Rick 4800 syste m uses autom ated extra ction , simul taneo us ampli ficat ion of HPV (L1 regio n) and beta- globi n, follo wed by real time detec tion of fluor escen t label ed HPV and beta globi n using speci fic oligo nucle otide probe s. The test speci fical ly ident ifies types HPV 16 DNA and HPV 18 DNA while concu rrent ly detec ting the rest of the high risk types (31, 33, 35, 39, 45, 51, 52, 56, 58, 59, 66 or 68). COMME NTS: This test is not inten ded for use as a scree tony devic e for woman under age 30 with rohini l cervi dayna cytol ogy. Resul ts shoul d be corre lated with cytol ogic and histo logic findi ngs. Close clini dayna follo wup is recom lukasz d. 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 Pap tests are prima rily effec tive for the diagn osis/ preve ntion of squam ous cell carci noma, not adeno carci noma or other cance rs. 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 OPERATOR ADEQU ACY: Satis facto ry for evalu ation , endoc erv/t ransf ormat ion zone compo nent absen t, atrop hy Path repor t.rel evant Hx Spec: none BKR LAB AP LMP: NONE BKR LAB AP HPV REFLE X: Yes regar dless of resul t BKR LAB AP PREVI OUS ABNOR MAL: No BKR LAB AP PREVI OUS ABNL DX: Neg/N eg hpv Path repor t.com ments Imp Spec: The techn ical compo nent of this testi ng was compl eted at [facility] Not Available [address], [place], [address], 07/12/2023 08:05:08 05/01/20 24 05/01/2024 URINE CULTU RE urine culture SEE RESULT S BELOW SPECI MEN SOURC E Urine Urine , Clean Catch CULTU RE RESUL TS No Growt h REPOR T STATU S FINAL 05/02 Not Available [address], [place], [address], 05/02/2024 11:45:15 06/16/20 21 06/16/2021 imagi ng/di agnos tic resul t No observ ation record ed. [facility] (Pulmonary Function) [address], [place], [address], 06/16/2021 17:11:04 10/16/19 24 10/13/2023 MAMMO , scree tony, tomos ynthe sis, bilat eral, w/ CAD No observ ation record ed. [address] [place], [address], 10/17/2023 16:44:43 Result Notes None recorded. Problems Name Problem SNOMED Code Status Onset Date Resolution Date Notes Provider Name and Address Organization Details Recorded Time Depressive disorder 75250362 Active Not Available [facility] 0 01:08:38 Problem Notes None recorded. Procedures Surgical History Date Name Laterality Status Provider Name and Address Organization Details Recorded Time 10/13/19 24 Date of Last Mammogram completed Aubree Vale [facility] [employer] 10/17/2023 16:44:18 07/06/20 23 Date of Last Pap Smear completed Monika Real [facility] [employer] 07/12/2023 11:34:09 06/26/20 14 operative procedure on foot completed Not Available [facility] 04/13/2020 01:04:57 endometrial biopsy completed Not Available [facility] 04/13/2020 01:04:57 colposcopy of cervix completed Not Available [facility] 04/13/2020 01:04:57 dilatation and curettage NEC with hysteroscopy NEC completed Not Available [facility] 04/13/2020 01:04:57 Imaging Results Imaging Date Name Status LastModified by Organ [facility] Details LastModified Time 06/16/2021 imaging/diag nostic result completed [facility] (Pulmonary Function) [address], [place], [address], 06/16/2021 17:11:04 10/13/2023 MAMMO, screening, tomosynthesi s, bilateral, w/ CAD completed [address], [place], [address], 10/17/2023 16:44:43 Procedure Notes None recorded. Medical Equipment None Reported. Allergies No known drug allergies Medications Name Sig Start Date Stop Date Status Note LastModified by Organization Details LastModified Time cyclobenzap rine 10 mg tablet TAKE ONE TABLET BY MOUTH EVERY DAY AT BEDTIME NEEDED FOR MUSCLE SPASM. 07/06 completed Not Available Not Available Not Available citalopram 40 mg tablet TAKE 1 TABLET BY MOUTH EVERY DAY active Not Available Not Available No t Available trazodone 50 mg tablet TAKE 0.5-2 TABLETS (25-100 MG) BY MOUTH AT BEDTIME 07/06 completed Not Available Not Available Not Available triamcinolo ne acetonide 0.5 % topical cream APPLY THIN COAT TO AFFECTED AREA TWICE A DAY active Not Available Not Available No t Available valacyclovi r 1 gram tablet Take 1 tablet every 8 hours by oral route for 7 days. 07/06 completed Not Available Not Available Not Available ondansetron HCl 4 mg tablet TAKE 1-2 TABLETS BY MOUTH EVERY 8 HOURS NEEDED FOR NAUSEA. active Not Available Not Available No t Available prednisone 20 mg tablet 07/06 completed Not Available Not Available Not Available hydroxyzine pamoate 50 mg capsule TAKE 1 CAPSULE BY MOUTH ONCE DAILY NEEDED 07/06 completed Not Available Not Available Not Available triamcinolo ne acetonide 0.1 % topical cream APPLY TO LEG RASH 2 TIMES DAILY NEEDED 02/25 completed Not Available Not Available Not Available levothyroxi ne 25 mcg tablet TAKE 1 TABLET BY MOUTH EVERY DAY active Not Available Not Available No t Available ofloxacin 0.3 % ear drops INSTILL 10 DROPS INTO THE RIGHT EAR IN THE MORNING AND 10 DROPS IN THE EVENING FOR SEVEN DAYS 07/06 completed Not Available Not Available Not Available famotidine 20 mg tablet TAKE 1 TABLET BY MOUTH 2 TIMES DAILY 05/16 completed Not Available Not Available Not Available hydrocortis one-acetic acid 1 %-2 % ear drops 4 DROPS INTO THE RIGHT EAR UP TO 4 TIMES DAILY NEEDED FOR EAR CANAL ECZEMA 07/06 completed Not Available Not Available Not Available trazodone 100 mg tablet TAKE 1 TABLET BY MOUTH AT BEDTIME active Not Available Not Available No t Available clotrimazol e-betametha sone 1 %-0.05 % topical cream APPLY A SMALL AMOUNT TO THE AFFECTED EAR TWICE DAILY FOR 7 DAYS THEN NEEDED FOR ITCHING 07/06 completed Not Available Not Available Not Available polymyxin B sulfate 10,000 unit-trimet hoprim 1 mg/mL eye drops PLACE 1-2 DROPS INTO BOTH EYES EVERY 4 HOURS active Not Available Not Available No t Available mupirocin 2 % topical ointment APPLY TO AFFECTED AREA 2-3 TIMES A DAY, FOR 14 DAYS 07/06 completed Not Available Not Available Not Available clobetasol 0.05 % topical ointment APPLY TO THE VULVA AND PERIANAL SKIN NIGHTLY FOR 2 WEEKS, THEN 3 TIMES A WEEK THEREAFTE R active Not Available Not Available No t Available estradiol 0.01% (0.1 mg/gram) vaginal cream PLACE A PEA-SIZED AMOUNT VAGINALLY NIGHTLY FOR 4 WEEKS, THEN 3 TIMES A WEEK THEREAFTE R active Not Available Not Available No t Available methylpredn isolone 4 mg tablets in a dose pack FOLLOW PACKAGE DIRECTION S 05/16 completed Not Available Not Available Not Available albuterol sulfate HFA 90 mcg/actuati on aerosol inhaler INHALE 2 PUFFS INTO THE LUNGS EVERY 6 HOURS NEEDED FOR SHORTNESS OF BREATH, WHEEZING OR COUGH active Not Available Not Available No t Available amoxicillin 875 mg-potassiu m clavulanate 125 mg tablet TAKE 1 TABLET BY MOUTH TWICE DAILY WITH MEALS FOR 10 DAYS 07/06 completed Not Available Not Available Not Available oxycodone 5 mg tablet Take 1 tablet every 4 hours by oral route. 05/16 completed Not Available Not Available Not Available rosuvastati n 20 mg tablet TAKE 1 TABLET BY MOUTH EVERY DAY active Not Available Not Available No t Available COVID-19 test specimen collection TEST DIRECTED 06/10 completed Not Available Not Available Not Available Vitals Date Recorded Body height Body mass index (BMI) Body weight Systolic blood pressure Diastolic blood pressure Provider Name and Address Organization Details Last Updated DateTime 06/10/2021 157.48 cm 26.6 kg/m2 25825.05 g 100 mm[Hg] 72 mm[Hg] Aubree Emery [employer] 15:04:45 Date Recorded Body height Systolic blood pressure Diastolic blood pressure Provider Name and Address Organization Details Last Updated DateTime 05/16/2022 157.48 cm 138 mm[Hg] 80 mm[Hg] Vika Johnston(TER M) [facility] [employer]OE [employer]TER 05/16/2022 17:24:41 Date Recorded Body weight Body mass index (BMI) Body height Systolic blood pressure Diastolic blood pressure Provider Name and Address Organization Details Last Updated DateTime 07/06/2023 55032.33 g 30.4 kg/m2 157.48 cm 110 mm[Hg] 70 mm[Hg] Leesa Logan (TERMED) [facility] [employer] 3 16:22:58 Date Recorded Body height Body mass index (BMI) Body weight Systolic blood pressure Diastolic blood pressure Provider Name and Address Organization Details Last Updated DateTime 05/01/2024 157.48 cm 29.4 kg/m2 72979.37 g 114 mm[Hg] 70 mm[Hg] Sonidoregi Zay [facility] [employer]OE [employer]TER 4 10:51:03 Social History Question Answer Notes LastModified by [email or web address] Details LastModified Time Tobacco Smoking Status Never Smoker Aubree davis [facility] [employer] 06/10/2021 08:14:17 What Is Your Level Of Alcohol Consumption? None Information not available 06/10/2021 What Is Your Level Of Caffeine Consumption? None [email or web address] Information not available 07/06/2023 Which Illicit Or Recreational Drugs Have You Used? Denies Illicit Substance Abuse [email or web address] Information not available 07/06/2023 Children's Names/ CatrinaAdan oboker Gabrielle Information not available 06/10/2021 Spouse/Partners Name Ari Information not available 06/10/2021 What Is Your Relationship Status? Information not available 06/10/2021 Do You Use Any Illicit Or Recreational Drugs? No Information not available 06/10/2021 Sex: Unknown Functional Status Question Answer Note LastModified by [email or web address] Details LastModified Time What is your exercise level? Moderate Moderate Amount of Exercise (1-3 times weekly) [email or web address] Information not available 04/13/2020 Mental Status None recorded. Family History Relationship Description Onset Age of this Age Resolved Age Notes LastModified by Organization Details LastModified Time Father Benign essential hypertension Hypert ension [email or web address] Not available 05/01/2024 10:27:29 Mother Family history of breast cancer 47 Cancer Breast [email or web address] Not available 05/01/2024 10:27:29 Mother Malignant tumor of breast 50 Not available 2020 15:03:00 Maternal Grandmother Family history of breast cancer Cancer Breast [email or web address] Not available 05/01/2024 10:27:29 Maternal Grandmother Malignant tumor of breast 60 65 Not available 2020 15:03:01 Medical History Condition Response ID-Other Y Psych- Depression Y Gynecological History Statement/Question Response History of Abnormal PAP Y HPV Test Negative Date of Last Mammogram 10/13/2023 Date of LMP 03/04/2021 Age at Menopause 49 Sexual Orientation Heterosexual Sexually Active Y Age at Menarche: 13 Date of Last Colonoscopy History of Sexually Transmitted Infectio n N Current Control Method Menopause Date of Last Pap Smear 07/06/2023 Date of Last Cholesterol Screening 09/04 Obstetrics History GPAL:G 4 P 3 0 1 3 Type Value Multiple Births 0 Full Term 3 Induced 0 Spontaneous 1 Premature 0 Living 3 Ectopics 0 Total 4 Immunizations Vaccine Type Date Status Provider Name and Address Organization Details Recorded Time SARS-COV-2 (COVID-19) vaccine, UNSPECIFIED 01/02/2021 completed Fozia Tse (TERMED) null, [place] [facility] 02/25/2021 16:05:54 Influenza, MDCK, quadrivalent, PF 05/16/2022 completed ALEYDA JACOBS, ELIZAB[place] [address] [facility],[address], [place], [address], [place] [facility] 05/18/2022 15:58:36 Past Encounters Encounter ID Performer Location Encounter Start Date Encounter Closed Date Diagnosis/Indication Diagnosis SNOMED-CT Code Diagnosis ICD10 Code [id number] SAMSON CHO MD [id number] [place] [address] [place] [address] 02/25/2021 15:59:50 02/25/2021 16:32:01 Gynecologic examination 91112890 Z01.419 Depressive disorder 3548 9007 F32.9 [id number] NOVA PRITCHETT MD [id number] [place] ,[address] [place] [address] 06/10/2021 14:57:28 06/10/2021 16:01:38 Herpes zoster 6493486 B02.9 Pain of breast 63698560 N64.4 [id number] ALEYDA JACOBS, [facility] [id number] [place] [place] [address] 05/16/2022 17:04:24 05/20/2022 09:11:17 Anxiety 45868861 F41.9 Administra tion of influenza vaccine 17083294 Z23 Gynecologi c examination 69118418 Z01.419 Hypothyroidism 22467645 E03.9 Elevated blood-pressure reading without diagnosis of hypertension 924528846 R03.0 Overweight 294583003 E66 .3 [id number] SAMSON CHO MD [id number] [place] [place] [address] [place] [address] 05/23/2023 16:23:53 05/23/2023 17:21:54 Anxiety 24524095 F41.9 [id number] SAMSON CHO MD [id number] [place] ,[facility] [address] [place] [address] 07/06/2023 16:10:16 07/10/2023 16:52:54 Gynecologic examination 91732041 Z01.419 Lichen sclerosus 5757154 01 L90.0 [id number] NOVA PRITCHETT MD [id number] [place] [place] [address] [place] [address] 05/01/2024 10:25:02 05/02/2024 09:59:35 Genital lichen sclerosus 705191804 L90.0 Vaginal dryness 36279498 N89.8 Pelvic harshil or dysfunction 498085781 M62.[address] ess incontinence 36311666 N39.3 Prolapse o f female genital organs 73411500 N81.9 Health Concerns Section Related Observation LastModified by Organization Detai ls LastModified Time None Recorded Concern Status LastModified by Organization Details LastModified Time None Recorded Advance Directives Directive None Recorded Payers Encounter Date Sequence Insurance Name Policy Number Policy H[place] Covered Member ID Hogue Member ID Guarantor Name 06/10/2021 1 [facility] Mamta Pickett [id number] Mamta Pickett 05/16/2022 1 [facility] Mamta Pickett [id number] Mamta Pickett 05/23/2023 1 [facility] Mamta Pickett [id number] Mamta Pickett 07/06/2023 1 [facility] ([facility] [id number] Mamta Pickett [id number] Mamta Pickett 05/01/2024 1 [facility] ([facility]) [id number] Mamta Pickett [id number] Mamta Pickett Notes Date Note Type Note Provider Name and Address Organization Details Recorded Time 06/10/2021 text/html HPI Notes: Breas t Pain ([facility]) Reported by patient. Left Breast: upper outer quadrant * Quality: burning * Severity: severe; interfers with sleep * Duration: 1 weeks * Timing: Onset: gradual; constant * Context: no history of abnormal mammogram; family history of breast, ovarian, uterine or colon cancer; maternal grandmother, mother * Associated Signs & Symptoms: no breast mass; no dense breast tissue; no engorgement; no fever; no redness; skin changes; no nipple discharge; nipple not inverted * Modifying Factors: better with NSAIDs Notes: Pain started one week ago. ER visit at [facility] 06/03 for chest pain- ECG, CRX, CBC, CMP, d-dimer, trop all normal. 3-4 days ago developed rash, but very minimal. Pain radiates around side to back. Taking 800 mg ibuprofen around the clock. Difficulty [place] [address], [place], [address] 06/10/2021 15:58:38 05/16/2022 text/html HPI Notes: Ynes mares Postmenopausal ([facility]) Reported by patient. Patient Relationship To Practice: established patient Current Medical History: active medical problems stable Relevant Family History: family history of breast cancer; no family history of ovarian cancer; no family history of uterine cancer; no family history of colon cancer; no family history of blood clots/DVT Menopausal Symptoms: not present HRT: never on HRT Vaginal Bleeding: no Sexually Active: Yes: spouse STI Screen: declines Health/Prevention: Exercise: no; Adequate Calcium Intake: yes; Safe at home: yes; Mental Health Screen: normal Mammogram: due Pap Smear +/- HPV Cotesting: up-to-date Thyroid/Lipid Screening: up-to-date Colonoscopy: up-to-date Bone Density Study: not applicable Patient has: Primary Care Physician: yes Seen for . History of anxiety, wondering if citalopram is working well enough for her. Potentially interested in changing medications but wants to wait for now to see if things improve given many changes to schedule with fall. Open to counseling. has had colonoscopy in last 10 years (thinks within past 4-[address] [address] [facility],[address], [place], [address], [facility] ORTHOPEDIC SHOE [facility]TER 05/18/2022 16:12:35 05/23/2023 text/html HPI Notes: Anxie ty/ Depression ([facility]) Reported by patient. Patient Relationship To Practice: established patient Reason for visit: anxiety Severity: moderate; interferes with daily activity yes Pt in on Citalopram for anxiety which usually works well for her. She is leaving tomorrow for a 2 week vacation that involves layovers and many transportation changes.She finds herself increasingly anxious with the preparations. She has taken Xanax in the past without problems. Because she will need to think clearly with traveling, something not [place] strong [place] [address], [place], [address], [facility] hospital ORTHOPEDIC SHOE [facility]TER 05/23/2023 17:13:41 07/06/2023 text/html HPI Notes: Ynes mares Postmenopausal ([facility]) Reported by patient. Patient Relationship To Practice: established patient Current Medical History: no active medical problems Relevant Family History: family history of breast cancer Mammogram: due Pap Smear +/- HPV Cotesting: due Colonoscopy: [place] [address] [facility],[address], [place], [address], [facility]IC [facility] 07/10/2023 12:13:10 05/01/2024 text/html HPI Notes: 53yo postmenopausal patient here for pelvic pressure and concerns for pelvic prolapse. Also notes difficulty emptying- urinates, then needs to stand up, then sit back down and is able to fully empty. Has a history of lichen sclerosus- has not been using clobetasol (did not have great understanding of lichen and treatment). [place] [address] [facility],[address], [place], [address], [facility] ORTHOPEDIC SHOE FITTER 05/01/2024 20:32:45 OBGyn Episode Ob Episode Information Episode Created Date Number of Fetuses Patient Bloodtype Patient rh Status Prepregnancy Weight lbs Domestic Partner Domestic Partner Phone Father Name Strategic Planning Specialist Status 06/10/20 21 1 CLOSED Fetus Data First Name Last Name Admitted to NICU Weight (g) Sex Living Outcome Pediatric Complications Fetus ID Race Codes Race Delivery Type 3656.85 8704 F Full Term [id number] Michael Calculation Initial Michael Date Initial Exam Date Initial Exam Provider Initial Ultrasound Date Last Menstrual Period Date Ultra Sound Weeks Gestation 0 Eighteen To Twenty Week Michael Update Ultra Sound Date Fundal Height At Umbil Quickening Date Ultra Sound Latest Weeks Gestation Final Michael Confirmed By Final Michael Confirmed Date Final Mihcael Date Ultra Sound Latest Days Gestation 0 0 Menstrual History Last Menstrual Date Menses Monthly On Bcp Conception Prior Menses Frequency Hcg Plus Date Menarche Onset Age Delivery Information Delivery Date Delivery Type Labor Anesthesia Weeks Gestation Incision Type Labor Labor Length Hrs Delivered By Post Complications Tubal Sterilization Discharge Date Comments [address] Connor Discharge Information Feeding Method Contraceptive Method Maternal HG B and HCT Levels Ob Episode Information Episode Created Date Number of Fetuses Patient Bloodtype Patient rh Status Prepregnancy Weight lbs Domestic Partner Domestic Partner Phone Father Name Strategic Planning Specialist Status 06/10/20 21 1 CLOSED Fetus Data First Name Last Name Admitted to NICU Weight (g) Sex Living Outcome Pediatric Complications Fetus ID Race Codes Race Delivery Type 3515.33 8 F Full Term 34941 Michael Calculation Initial Michael Date Initial Exam Date Initial Exam Provider Initial Ultrasound Date Last Menstrual Period Date Ultra Sound Weeks Gestation 0 Eighteen To Twenty Week Michael Update Ultra Sound Date Fundal Height At Umbil Quickening Date Ultra Sound Latest Weeks Gestation Final Michael Confirmed By Final Michael Confirmed Date Final Michael Date Ultra Sound Latest Days Gestation 0 0 Menstrual History Last Menstrual Date Menses Monthly On Bcp Conception Prior Menses Frequency Hcg Plus Date Menarche Onset Age Delivery Information Delivery Date Delivery Type Labor Anesthesia Weeks Gestation Incision Type Labor Labor Length Hrs Delivered By Post Complications Tubal Sterilization Discharge Date Comments [address] Connor Discharge Information Feeding Method Contraceptive Method Maternal HG B and HCT Levels Ob Episode Information Episode Created Date Number of Fetuses Patient Bloodtype Patient rh Status Prepregnancy Weight lbs Domestic Partner Domestic Partner Phone Father Name Strategic Planning Specialist Status 06/10/20 21 1 CLOSED Fetus Data First Name Last Name Admitted to NICU Weight (g) Sex Living Outcome Pediatric Complications Fetus ID Race Codes Race Delivery Type 2976.47 0704 F Full Term 28362 Vaginal Vacuum Assisted Michael Calculation Initial Michael Date Initial Exam Date Initial Exam Provider Initial Ultrasound Date Last Menstrual Period Date Ultra Sound Weeks Gestation 0 Eighteen To Twenty Week Michael Update Ultra Sound Date Fundal Height At Umbil Quickening Date Ultra Sound Latest Weeks Gestation Final Michael Confirmed By Final Michael Confirmed Date Final Michael Date Ultra Sound Latest Days Gestation 0 0 Menstrual History Last Menstrual Date Menses Monthly On Bcp Conception Prior Menses Frequency Hcg Plus Date Menarche Onset Age Delivery Information Delivery Date Delivery Type Labor Anesthesia Weeks Gestation Incision Type Labor Labor Length Hrs Delivered By Post Complications Tubal Sterilization Discharge Date Comments 9 Regional- idural 39 Dr Cho Discharge Information Feeding Method Contraceptive Method Maternal HG B and HCT Levels
--- OUTSIDE RECORDS SUMMARY | 2024-06-24 18:07 | XMS_ITS | Clinical Summary ---
Author Organization [facility] Address [place], [place] [address] Care Team Providers Care Underbaster Name Role Phone Marcelina Soliman MD Primary Care Provider [phone] Allergies Active Allergy Reactions Criticality Noted Date Comments Venlafaxine Rash High 07/21/2011 Over entire body Medications Medication Sig Dispensed Refills Start Date End Date Status levothyroxine (SYNTHROID) 50 mcg tablet Take 50 mcg by mouth before breakfast. Active ferrous gluconate, 27 mg elemental, (FERGON) 240 mg (27 mg Iron) tablet Take 240 mg by mouth 2 times daily with meals. Active acetaminophen (TYLENOL EXTRA STRENGTH) 500 mg tablet Take 500-1,000 mg by mouth every 6 hours if needed. Max acetaminophen dose: 4000mg in 24 hrs. Active ibuprofen (ADVIL; MOTRIN) 200 mg tablet Take 200-800 mg by mouth 4 times daily if needed. Active hydrocortisone-acet ic acid (VOSOL HC) otic solutionIndications :Eczematoid otitis externa of right ear, unspecified chronicity 4 drops right ear up to 4x daily as needed for ear canal eczema 10 mL 04/19/2022 Active citalopram (CELEXA) 40 mg tablet citalopram 40 mg tablet 09/27/2021 Active citalopram (CELEXA) 40 mg tablet Take 40 mg by mouth once daily. 06/02/2022 Active Multivitamin Cmb No.21-Iron-FA 18-400 mg-mcg tab Take by mouth. Act segun cholecalciferol, Vitamin D3, 5,000 unit tab tablet Take by mouth. Activ e predniSONE (DELTASONE) 20 mg tabletIndications:S hortness of breath,Acute non-recurrent pansinusitis Take 2 Tablets (40 mg) by mouth once daily with a meal. 10 Tablet 07/19/2022 Active albuterol HFA (PRO-AIR; VENTOLIN; PROVENTIL) 90 mcg/actuation inhalerIndications: Shortness of breath Inhale 1-2 Puffs by mouth every 4 hours if needed for Shortness Of Breath or Wheezing. 1 Each 07/19/2022 Active cyclobenzaprine (FLEXERIL) 10 mg tabletIndications:T ail bone pain Take 1 Tablet (10 mg) by mouth at bedtime if needed for Muscle Spasm. 15 Tablet 01/21/2023 Active Active Problems Problem Noted Date Diagnosed Date Unspecified hypothyroidism 08/09/2010 Anxiety state, unspecified 08/09/2010 Social History Tobacco Use Types Packs/Day Years Used Date Smoking Tobacco: Never Smokeless Tobacco: Never Alcohol Use Standard Drinks/Week Comments Yes 0 (1 standard drink = 0.6 oz pure alcohol) 0-3 drinks of wine or beer/week Social Connections Answer Date Recorded Frequency of Communication with Friends and Fami ly Not on file 04/19/2022 Sex and Gender Information Value Date Recorded Sex Assigned at Not on file Gender Identity Not on file Sexual Orientation Not on file Obstetrics History Last Filed Vital Signs Vital Sign Reading Time Taken Comments Blood Pressure 126/75 01/21/2023 5:45 PM CDT Pulse 76 01/21/2023 5:45 PM CDT Temperature 36.8 ??C (98.3 ??F) 01/21/2023 5:45 PM CD T Respiratory Rate 12 01/21/2023 5:45 PM CDT Oxygen Saturation 97% 01/21/2023 5:45 PM CDT Inhaled Oxygen Concentration - - Weight 80.3 kg (177 lb) 01/21/2023 5:45 PM CDT Height 157.5 cm (5' 2) 01/21/2023 5:45 PM CDT Body Mass Index 32.37 01/21/2023 5:45 PM CDT Plan of Treatment Health Maintenance Due Date Last Done Comments Tdap 1979 Depression screening for age 12+ 1980 HIV for age 15-65 1983 Hepatitis C screening for ag e 18-79 1986 Tetanus booster 1988 Pap test for age 21-65 1989 Colonoscopy through age 75 2013 Lipids for age 45-75 2013 Mammogram for age 45-75 2013 Zoster (shingles) series for age 50+ (1 of 2) 2018 BMI (ht and wt on same day) for age 18+ 07/19/2023 07/19/2022 COVID-19 vaccine series ( season) 2024 09/03/2021, 01/21/2021, 12/24/2020 Influenza for age 50-64 05/05/2024 Pneumococcal series for age 6-64 Aged Out No longer eligible b ased on patient's age to complete this topic Medical Devices Implanted Type Area Legal Intern Device Identifier Shelf Expiration Date Model / Serial / Lot Screw Legacy 6.5x40 Titnm M/A [id number] - [id number] Implanted:Qty: 2 on 08/09/2010 at [facility] N/A: Spine SOFAMOR DANEK [id number]# / / Screw Legacy 7.5x35 Titnm M/A [id number] - [id number] Implanted:Qty: 2 on 08/09/2010 at [facility] N/A: Spine SOFAMOR DANEK [id number]# / / Carlton 5.5x40 Prebent Cdh - [id number] Implanted:Qty: 2 on 08/09/2010 at [facility] N/A: Spine SOFAMOR DANEK [id number]# / / Screw Set Break-Off Hex Titnm - [id number] Implanted:Qty: 4 on 08/09/2010 at [facility] N/A: Spine SOFAMOR DANEK [id number]# / / Kit Infuse Sm - [id number] Implanted:Qty: 1 on 08/09/2010 at [facility] Spine SOFAMOR DANEK [id number]# / / [id number] Capstone 10x26 - [id number] Implanted:Qty: 1 on 08/09/2010 at [facility] Spine SOFAMOR DANEK [id number]# / / [id number] Advance Directives * Full Code (Latest Code Status on File) Date Activated Date Inactivated Comments 08/10/2010 3:55 PM 08/11/2010 6:57 PM * Full Code Date Activated Date Inactivated Comments 08/09/2010 1:22 PM 08/10/2010 3:55 PM * Full Code Date Activated Date Inactivated Comments 08/09/2010 6:13 AM 08/09/2010 1:22 PM * Full Code Date Activated Date Inactivated Comments 02/18/2008 6:54 AM 02/18/2008 11:06 AM Care Teams Underbaster Relationship Specialty [place] [address] [place] [address] PCP - General Family Practice 09/08/22
--- OUTSIDE RECORDS SUMMARY | 2024-06-24 18:07 | XMS_ITS | Encounter Summary ---
Author Organization [facility] Address [address] [place] [address] Care Team Providers Care Drawing Hand Name Role Phone Tish Wilkinson PA-C Primary Care Provid er Marcelina Soliman MD Primary Care Provider Natty Diaz MD Primary Care Provider + JourdanMarcelina pina MD Primary Care Provider Delphine Baca PA-C Unavailable Marcelina Soliman MD Unavailable Marcelina Soliman MD Unavailable Marcelina Soliman MD Unavailable Susan Camejo MD Unavailable + Elizabeth Roy APRN FLOW TRADER Unavailable Marcelina Soliman MD Unavailable No Ref-Primary, Physician Primary Care Provider Jasmina Aviles APRN FLOW TRADER Unavailable Lyn Simmons PA-C Unavailable [phone] Lyn Simmons PA-C Primary Care Provider Jasmina Aviles APRN FLOW TRADER Unavailable Natty Diaz MD Primary Care Provider + Marcelina Soliman MD Primary Care Provider [phone] Marcelina Soliman MD Unavailable Reason for Visit * Reason Onset Date Comments MyChart Communication 04/22/2012 sertraline Encounter Details Date Type Department Care Team (Latest Contact Info) Description 04/22/2012 MyC Medical Advice [address] [address] Tish Wilkinson PA-C [address] [address] MyChart Communication (sertraline ) Social History Tobacco Use Types Packs/Day Years [...] CDT Travel History Travel Start Travel End [place] 05/30/2024 06/02/2024 [facility] 05/23/2024 05/30/2024 documented as of this encounter Miscellaneous Notes * Telephone Encounter - Ramón Diaz - 04/23/2012 12:36 PM CDT Today's PHQ-9 Score: 9 Ramón [place] RN documented in this encounter Plan of Treatment Not on file documented as of this encounter Visit Diagnoses Diagnosis Mild major depression (H)- Primary Major depressive disorder, single episode, mild Fatigue Other malaise and fatigue Iron deficiency anemia Iron deficiency anemia, unspecified documented in this encounter Care Teams Drawing Hand Relationship Specialty Start Date End Date Dehler, Tish Jenni, PA-C [address] [facility] [address] [place] [address] PCP - General Family Practice 07/20/11 06/17/14 [place] [address] [place] [address] PCP - General Family Practice 06/18/14 01/13/15 Natty Diaz MD [address] [place] [address] [address] [place] [phone] PCP - General representative phlebotomy services 01/14/15 06/01/16 [place] [address] [place] [address] PCP - General Family Practice 06/02/16 12/05/22 Delphine Baca PA-C [address] [place] [address] PCP - Assigned PCP 08/19/18 09/15/18 [place] [address] [place] [address] PCP - Assigned PCP 08/21/16 08/18/18 [place] [address] [place] [address] PCP - Assigned PCP 09/16/18 11/06/18 No Ref-Primary, Physician PCP - General 08/07/23 09/25/23 Lyn Simmons [facility]-C [address] [facility] [place] [address] PCP - General 09/26/23 10/12/23 Natty Diaz MD [address] [place] [phone] PCP - General representative phlebotomy services 10/13/23 04/17/24 [place] [address] [facility] [place] [id number] PCP - General 04/18/24 [place] [address] [place] [address] Assigned PCP 09/16/18 04/24/21 Susan Camejo MD [facility] [address] [facility] [address] [place] [address] Assigned PCP 04/25/21 07/17/21 Elizabeth Roy APRN FLOW TRADER PRIMARY ENT [address] [place] [address] Assigned PCP 07/18/21 02/17/23 [place] [address] [facility], [place] [address] Assigned PCP 02/18/23 09/08/23 Jasmina Aviles APRN FLOW TRADER [address] [facility] [address] [place], [place] [id number] Catia Designer Pulmonary Disease 09/08/23 Lyn Simmons PA-C [address] [place] [address] Assigned PCP 09/09/23 04/25/24 Jasmina Aviles APRN FLOW TRADER [address] [facility] [address] [place] [address] Assigned Pulmonology Provider 09/28/23 [place] [address] [place] [address] Assigned PCP 04/26/24 documented as of this encounter
--- OUTSIDE RECORDS SUMMARY | 2024-06-24 18:07 | XMS_ITS | Encounter Summary ---
Author Organization [facility] Address [address] [place] [address] Care Team Providers Care Head End Desizing Machine Operator Name Role Phone Tish Wilkinson PA-C Primary Care Provid er Marcelina Soliman MD Primary Care Provider Natty Diaz MD Primary Care Provider + JourdanMarcelina pina MD Primary Care Provider Delphine Baca PA-C Unavailable Marcelina Soliman MD Unavailable Marcelina Soliman MD Unavailable Marcelina Soliman MD Unavailable Susan Camejo MD Unavailable + Elizabeth Roy APRN CATTLE DRIVER Unavailable Marcelina Soilman MD Unavailable No Ref-Primary, Physician Primary Care Provider Jasmina Aviles APRN CATTLE DRIVER Unavailable Lyn Simmons PA-C Unavailable [phone] Lyn Simmons PA-C Primary Care Provider Jasmina Aviles APRN CATTLE DRIVER Unavailable Natty Diaz MD Primary Care Provider + Marcelina Soliman MD Primary Care Provider Marcelina Soliman MD Unavailable Reason for Visit * Reason Onset Date Comments MyChart Communication 06/17/2014 Encounter Details Date Type Department Care Team (Latest Contact Info) Description 06/17/2014 [facility] [address] [place] [phone] Melissa Martínez APRN CATTLE DRIVER [address] [place] [address] MyChart Communication Social History Tobacco Use Types Packs/Day Years [...] CDT Travel History Travel Start Travel End [place] 05/30/2024 06/02/2024 [facility] 05/23/2024 05/30/2024 documented as of this encounter Plan of Treatment Not on file documented as of this encounter Visit Diagnoses Not on filedocumented in this encounter Care Teams Head End Desizing Machine Operator Relationship Specialty Start Date End Date Tish Wilkinson PA-C [address] [facility] [address] [place] [address] PCP - General Family Practice 07/20/11 06/17/14 [place] [address] [place] [address] PCP - General Family Practice 06/18/14 01/13/15 Natty Diaz MD [address] [facility] [address] [place] [phone] PCP - General director database 01/14/15 06/01/16 [place] [address] [place] [address] PCP - General Family Practice 06/02/16 12/05/22 Delphine Baca PA-C [address] [place] [address] PCP - Assigned PCP 08/19/18 09/15/18 [place] [address] [place] [address] PCP - Assigned PCP 08/21/16 08/18/18 [place] [address] [place] [address] PCP - Assigned PCP 09/16/18 11/06/18 No Ref-Primary, Physician PCP - General 08/07/23 09/25/23 Lyn Simmons PA-C [address] [place] [address] PCP - General 09/26/23 10/12/23 Natty Diaz MD [address] [facility] [address] [place] [address] PCP - General director database 10/13/23 04/17/24 [place] [address] [place] [address] PCP - General 04/18/24 [place] [address] [place], [place] [address] Assigned PCP 09/16/18 04/24/21 Susan Camejo MD PRIMARY ENT [address] [facility] [address] [place] [address] Assigned PCP 04/25/21 07/17/21 Elizabeth Roy APRN CATTLE DRIVER PRIMARY ENT [address] [facility] [address] [place] [address] Assigned PCP 07/18/21 02/17/23 [place] [address] [place] [address] Assigned PCP 02/18/23 09/08/23 Jasmina Aviles APRN CATTLE DRIVER [address] [address] Supervisor [employer] Pulmonary Disease 09/08/23 Lyn Simmons PA-C [address] [place] [address] Assigned PCP 09/09/23 04/25/24 Jasmina Aviles APRN CATTLE DRIVER [address] [address] Assigned Pulmonology Provider 09/28/23 [place] [address] [place] [address] Assigned PCP 04/26/24 documented as of this encounter
--- OUTSIDE RECORDS SUMMARY | 2024-06-24 18:07 | XMS_ITS | Encounter Summary ---
Author Organization [place] Address [address] [place] [address] Care Team Providers Care Base Engineer Name Role Phone Marcelina Soliman MD Primary Care Provider Delphine Baca PA-C Unavailable Marcelina Soliman MD Unavailable Marcelina Soliman MD Unavailable Marcelina Soliman MD Unavailable Susan Camejo MD Unavailable + Elizabeth Roy APRN ALTERATIONS MANAGER Unavailable Marcelina Soliman MD Unavailable No Ref-Primary, Physician Primary Care Provider Jasmina Aviles APRN ALTERATIONS MANAGER Unavailable [phone] Lyn Simmons-C Unavailable [phone] Lyn SimmonsC Primary Care Provider Jasmina Aviles APRN ALTERATIONS MANAGER Unavailable [phone] Natty Diaz MD Primary Care Provider + Marcelina Soliman MD Primary Care Provider Marcelina Soliman MD Unavailable Encounter Details Date Type Department Care Team (Late st Contact Info) Description 01/16/2017 [facility] [place] [facility] [address] [place] [phone] Ramón Diaz, RN Social History Tobacco Use [...] Travel History Travel Start Travel End [place] 05/30/2024 06/02/2024 [facility] 05/23/2024 05/30/2024 documented as of this encounter Plan of Treatment Not on file documented as of this encounter Visit Diagnoses Not on filedocumented in this encounter Additional Health Concerns Assessment Noted Time PHQ-9 Depression Total Score: 10 06/03/ 016 7:19 AM CDT documented as of this encounter Care Teams Base Engineer Relationship Specialty Start [place] [address] [place] [address] PCP - General Family Practice 06/02/16 12/05/22 Delphine Baca PA-C [address] [place] [address] PCP - Assigned PCP 08/19/18 09/15/18 [place] [address] [place] [address] PCP - Assigned PCP 08/21/16 08/18/18 [place] [address] [place] [address] PCP - Assigned PCP 09/16/18 11/06/18 No Ref-Primary, Physician PCP - General 08/07/23 09/25/23 Lyn Simmons PA-C [address] [place] [address] PCP - General 09/26/23 10/12/23 Natty Diaz MD [address] [facility] 100 [place] [address] PCP - General control system computer scientist 10/13/23 04/17/24 [place] [address] [place] [address] PCP - General 04/18/24 [place] [address] [place] [address] Assigned PCP 09/16/18 04/24/21 Susan Camejo MD PRIMARY ENT [address] [place] [address] Assigned PCP 04/25/21 07/17/21 Elizabeth Roy APRN ALTERATIONS MANAGER PRIMARY ENT [address] [place] [address] Assigned PCP 07/18/21 02/17/23 [place] [address] [place] [address] Assigned PCP 02/18/23 09/08/23 Jasmina Aviles APRN ALTERATIONS MANAGER [address] [address] Geospatial Imagery Intelligence Analyst Pulmonary Disease 09/08/23 Lyn Simmons PA-C [address] [place] [address] Assigned PCP 09/09/23 04/25/24 Jasmina Aviles APRN ALTERATIONS MANAGER [address] [address] Assigned Pulmonology Provider 09/28/23 [place] [address] [place] [address] Assigned PCP 04/26/24 documented as of this encounter
--- OUTSIDE RECORDS SUMMARY | 2024-06-24 18:07 | XMS_ITS | Continuity of Care Document ---
Author Organization [facility] - PHARMACY SERVICES DIRECTOR, [id number] Address [address] [address] Assessment Encounter Date Assessment Date Assessment LastModified by Organization Details LastModified Time 05/01/2024 05/01/2024 I spent a total of [...] UAL EXAM 2023 04:00P M Dr. Nova Pritchett Not available Not available Not available Lab cultu re, urine 2023 024 [facility], [address] [place] [address], [id number], [place], [address], 05/02/2024 11:45:15 Referral pelvi c floor thera py refer ral - Pleas e call patie nt to sched ule pelvi c floor PT for mild pelvi c organ prola pse, urina ry leaki ng/vo iding diffi culty . 2023 024 bhakti parker [facility] [place], [address], [place], [address], 05/02/2024 09:59:35 Procedures None recor ded. Surgeries None recor ded. Imaging None recor ded. Medication Orders clobe tasol 0.05 % topic al ointm ent 2023 [facility] [id number] [facility], [address], [place], [address], 05/01/2024 11:24:44 estra diol 0.01% (0.1 mg/gr am) vagin al cream 2023 [facility] [id number] [facility] [employer], [address], [place], [address], 05/01/2024 11:24:44 Patient TargetsNo targets recorded. Patient InstructionsNo instructions recorded. Reason for Referral Breast Center Referral for P ain of breast left breast pain- upper outer quadrant, family hx of breast CA pt is scheduled for left breast ultrasound/possible diagnostic mammogram. okay of any additional imaging/testing as recommended by supervising radiologists Referring Physician: Nova Pritchett PHARMACY SERVICES DIRECTOR, Encounter Date: 06/10/2021 Behavioral Health Referral f or Anxiety Patient agrees to be contacted by the [facility] Care team and agrees to complete initial and additional assessments as indicated. Patient is aware that usual co-pays and/or cost-sharing will apply to the service being delivered. Referring Physician: Natty Diaz PHARMACY SERVICES DIRECTOR, Encounter Date: 05/16/2022 Pelvic Floor Therapy Referra l for Pelvic floor dysfunction Please call patient to schedule pelvic floor PT for mild pelvic organ prolapse, urinary leaking/voiding difficulty. Referring Physician: Nova Pritchett PHARMACY SERVICES DIRECTOR, Encounter Date: 05/01/2024 Problems Name Problem SNOMED Code Status Onset Date Resolution Date Notes Provider Name and Address Organization Details Recorded Time Depressive disorder 41656342 Active Not Available [facility] 01:08:38 Problem Notes None recorded. Procedures Surgical History Date Name Laterality Status Provider Name and Address Organization Details Recorded Time 10/13/19 Date of Last Mammogram completed Aubree Emery PHARMACY SERVICES DIRECTOR 10/17/2023 16:44:18 07/06/20 23 Date of Last Pap Smear completed Mattheweloisa Luizjose a [facility] PHARMACY SERVICES DIRECTOR 07/12/2023 11:34:09 06/26/20 14 operative procedure on foot completed Not Available [facility] 04/13/2020 01:04:57 endometrial biopsy completed Not Available [facility] 04/13/2020 01:04:57 colposcopy of cervix completed Not Available [facility] 04/13/2020 01:04:57 dilatation and curettage NEC with hysteroscopy NEC completed Not Available [facility] 04/13/2020 01:04:57 Imaging Results None recorded. Procedure Notes None recorded. Medical Equipment None [...] Updated DateTime 05/01/2024 157.48 cm 29.4 kg/m2 02275.37 g 114 mm[Hg] 70 mm[Hg] Brendon Zay [facility] PHARMACY SERVICES DIRECTOR 10:51:03 Social History Question Answer Notes LastModified by Herrenschmiede Details LastModified Time Tobacco Smoking Status Never Smoker Aubree Ramirez [facility] PH[facility]AC[facility] SERVICES DIRECTOR 06/10/2021 08:14:17 What Is Your Level Of Alcohol Consumption? None Information not available 06/10/2021 What Is Your Level Of Caffeine Consumption? None [email or web address] Information not available 07/06/2023 Which Illicit Or Recreational Drugs Have You Used? Denies Illicit Substance Abuse [email or web address] Information not available 07/06/2023 Children's Names/ Adan Fritz, Nina Information not available 06/10/2021 Spouse/Partners Name Ari Information not available 06/10/2021 What Is Your Relationship Status? Information not available 06/10/2021 Do You Use Any Illicit Or Recreational Drugs? No Information not available 06/10/2021 Sex: Unknown Functional Status Question Answer Note LastModified by Herrenschmiede Details LastModified Time What is your exercise [...] Fozia Tse (TERMED) null, [place] [facility] DIRECT[facility] 02/25/2021 16:05:54 Influenza, MDCK, quadrivalent, PF 05/16/2022 completed ALEYDA JACOBS, [facility] [id number] [facility],[address], [place], [address], [facility] - [facility] PHARMAC[facility] DIRECTOR 05/18/2022 15:58:36 Past Encounters Encounter ID Performer Location Encounter Start Date Encounter Closed Date Diagnosis/Indication Diagnosis SNOMED-CT Code Diagnosis ICD10 Code [id number] NOVA PRITCHETT MD [id number] DALE_ED [facility]ANCES [address] [address] 05/01/2024 10:25:02 05/02/2024 09:59:35 Genital lichen sclerosus 668933714 L90.0 Vaginal dryness 83284887 N89.8 Pelvic harshil or dysfunction 424350014 M62.9 Female str ess incontinence 24598493 N39.3 Prolapse o f female genital organs 44033064 N81.9 Health Concerns Section Related Observation LastModified by Organization Detai ls LastModified Time None Recorded Concern Status LastModified by Organization Details LastModified Time None Recorded Payers Encounter Date Sequence Insurance Name Policy Number Policy Hogue Covered Member ID Hogue Member ID Guarantor Name 05/01/2024 1 [facility] - [facility] (O) [id number] Mamta Pickett [id number] Mamta Pickett Notes Date Note Type Note Provider Name and Address Organization Details Recorded Time 05/01/2024 text/html HPI Notes: 53yo postmenopausal patient here for pelvic pressure and concerns for pelvic prolapse. Also notes difficulty emptying- urinates, then needs to stand up, then sit back down and is able to fully empty. Has a history of lichen sclerosus- has not been using clobetasol (did not have great understanding of lichen and treatment[place] [id number] [facility],[address], [place], [address], [place] [facility] DIRECT[facility] 05/01/2024 20:32:45 OBGyn Episode No OBEpisode recorded.
--- OUTSIDE RECORDS SUMMARY | 2024-06-24 18:07 | XMS_ITS | Encounter Summary ---
Author Organization [facility] Address [address] [place] [address] Care Team Providers Care Osd Clerk Name Role Phone Tish Wilkinson PA-C Primary Care Provid er Marcelina Soliman MD Primary Care Provider Natty Diaz MD Primary Care Provider + JourdanMarcelina pina MD Primary Care Provider Delphine Baca PA-C Unavailable Marcelina Soliman MD Unavailable Marcelina Soliman MD Unavailable Marcelina Soliman MD Unavailable Susan Camejo MD Unavailable + Elizabeth Roy APRN CNC OPERATOR Unavailable Marcelina Soliman MD Unavailable No Ref-Primary, Physician Primary Care Provider Jasmina Aviles APRN CNC OPERATOR Unavailable Lyn Simmons PA-C Unavailable [phone] Lyn Simmons PA-C Primary Care Provider Jasmina Aviels APRN CNC OPERATOR Unavailable Natty Diaz MD Primary Care Provider + Marcelina Soliman MD Primary Care Provider [phone] Marcelina Soliman MD Unavailable Reason for Visit * Reason Onset Date Comments Appointment 03/21/2012 reminder Encounter Details Date Type Department Care Team (Late st Contact Info) Description 03/21/2012 [facility] [id number] [place] [phone] Magdy Segura Appointment (reminder) Social History Tobacco Use Types Packs/Day Years [...] CDT Travel History Travel Start Travel End [place] 05/30/2024 06/02/2024 [facility] 05/23/2024 05/30/2024 documented as of this encounter Plan of Treatment Not on file documented as of this encounter Visit Diagnoses Not on filedocumented in this encounter Care Teams Osd Clerk Relationship Specialty Start Date End Date Tish Wilkinson PA-C [address] [place] [address] [place] [address] PCP - General Family Practice 07/20/11 06/17/14 [place] [address] [place] [address] PCP - General Family Practice 06/18/14 01/13/15 Natty Diaz MD [address] [facility] [address] [place] [phone] PCP - General rewinder 01/14/15 06/01/16 [place] [address] [place] [address] PCP - General Family Practice 06/02/16 12/05/22 Delphine Baca PA-C [address] [place] [address] PCP - Assigned PCP 08/19/18 09/15/18 [place] [address] [place] [address] PCP - Assigned PCP 08/21/16 08/18/18 [place] [address] [facility] [address] PCP - Assigned PCP 09/16/18 11/06/18 No Ref-Primary, Physician PCP - General 08/07/23 09/25/23 Lyn Simmons PA-C [address] [facility] [place] [address] PCP - General 09/26/23 10/12/23 Natty Diaz MD [address] [facility] [address] [place] [phone] PCP - General rewinder 10/13/23 04/17/24 [place] [address] [facility] [place] [address] PCP - General 04/18/24 [place] [address] [place] [address] Assigned PCP 09/16/18 04/24/21 Susan Camejo MD PRIMARY ENT [id number] [facility] [address] [place] [address] Assigned PCP 04/25/21 07/17/21 Elizabeth Roy APRN CNC OPERATOR PRIMARY ENT [address] [place] [address] Assigned PCP 07/18/21 02/17/23 [place] [address] [place] [address] Assigned PCP 02/18/23 09/08/23 Jasmina Aviles APRN CNC OPERATOR [address] [address] [facility] Pul[facility] Disease 09/08/23 Lyn Simmons PA-C [address] [place] [address] Assigned PCP 09/09/23 04/25/24 Jasmina Aviles APRN CNC OPERATOR [address] [address] Assigned Pulmonology Provider 09/28/23 [place] [address] [place] [address] Assigned PCP 04/26/24 documented as of this encounter
--- NOTE | 2024-06-24 18:12 | ED.GENADULT ---
HPI - General Adult General Date Seen: 06/24/24 Chief complaint: Extremity Pain/Injury, Lower Stated complaint: R calf pain, nausea Time Seen by Provider: 06/24/24 17:33 Source: patient, RN notes reviewed and old records reviewed Mode of arrival: ambulatory Limitations: no limitations History of Present Illness HPI narrative: Patient is a 53-year-old woman who presents for a couple of concerns. Her primary concern is that of right calf pain which extends up behind the knee. This is been present for about a week and seems to be getting worse rather than better. She says that when she tries to lift the leg up it feels heavy, but she denies weakness. She did return from a flight to [place] at the very end of May. She does not have a prior history of DVT or PE. She also notes for the past several weeks she has had headache which is frontal, has been kind of coming and going but is present every day. It is not worse in the morning nor does it worsened throughout the day. It does respond to Tylenol or ibuprofen but then comes back. She has had some associated nausea and then says that yesterday and once overnight she had some vomiting. She has also felt a little dizzy, she does not describe vertigo, she feels like her vision is a little bit blurry as well. She says the dizziness is often associated with flushing in her face. She does not typically get headaches. She has not had upper respiratory symptoms such as sore throat or congestion. She has not had chest pain or abdominal pain, does feel like her breathing has been a little bit heavy. She does not smoke or drink. Her only medical history is of high cholesterol, she says she was started on a cholesterol medication but had side effects including some facial numbness so the medication was discontinued. Related Data Home Medications ?Medication ?Instructions ?Recorded ?Confirmed citalopram 40 mg tablet (Celexa) 40 mg PO DAILY 07/05/22 06/24/24 levothyroxine 07/05/22 semaglutide 06/24/24 Allergies Allergy/AdvReac Type Severity Reaction Status Date / Time No Known Drug Allergies Allergy Verified 07/05/22 12:45 Review of Systems Status of ROS: Reports: 10 or more systems reviewed and unremarkable except as noted in History and below PFSH PFSH Social History Smoking Status: Unknown if ever smoked Do you use any of these nicotine containing products: None Second hand tobacco smoke exposure: No Non-prescribed substance use: denies use service: No Exam Narrative: Exam Narrative: Vital signs as noted above. In general, an alert, well-appearing patient. Head: Normocephalic, atraumatic. Eyes: Pupils are equal reactive. Extraocular movements are full. Conjunctivae are normal. No nystagmus. ENT: Mucous membranes are moist. Throat is normal. Neck: Supple without lymphadenopathy. No meningeal signs. Heart: Regular rate and rhythm. No murmur or rub. Lungs: Clear bilaterally. No increased work of breathing, crackles or wheezes. Abdomen: Soft and nontender. No organomegaly. Extremities: Well perfused. No edema. No calf tenderness. Pulses intact. Neurologic: Patient is alert and oriented to person and place. Speech is fluent. Face is symmetric. Moves all extremities equally. Strength is 5 of 5 in bilateral lower extremities. Sensation intact to light touch. Affect: Normal. Skin: Warm and dry. Well perfused. No rashes. Const: Vital Signs, click to edit/add: Vital Signs - 24 hr 06/24/24 17:27 06/24/24 19:03 06/24/24 19:33 Temperature 97.1 F L 98.0 F Pulse Rate [Pulse Oximeter] 65 Respiratory Rate 16 Blood Pressure [Ri ght Upper Arm] 146/86 H Pulse Oximetry 98 98 Oxygen Delivery Me thod Room Air 06/24/24 19:34 06/24/24 19:34 Temperature 98.0 F 98.0 F Pulse Rate [Pulse Oximeter] 68 68 Respiratory Rate 16 16 Blood Pressure [Ri ght Upper Arm] 132/78 132/78 Pulse Oximetry 98 Oxygen Delivery Me thod Room Air Course Course ED Course: Patient presents with essentially 2 different symptom complexes, right calf pain for 1 week as well as 3 weeks of headache, vomiting, dizziness. I think with the duration of her headache and associated symptoms it is reasonable to do CT of the head today. I did order an ultrasound of the right leg, preliminarily that is negative for DVT exam does not show any evidence of cellulitis or obvious muscle injury. Will check a COVID swab, few basic labs, give her some Toradol, Zofran and Benadryl for headache. Labs thus far reassuring. Metabolic panel is normal, CBC shows a white blood cell count of 5.8 and hemoglobin of 13.3. CRP is less than 0.5, sed rate pending. LFTs are normal, TSH is pending. Viral swab is still pending as well. I have reviewed the head CT, she has a little bit of diffuse sinus disease, I do not see any findings concerning for hemorrhage or mass in the brain. Final radiology read as link below. She does feel better after medications, headache is not completely resolved. Discussed that there is no evidence of DVT, would suspect that the leg pain is muscular in the absence of any findings on exam. Does not at this time appear to be radicular. I do think it is worthwhile given duration of symptoms to try treating for sinusitis. I have prescribed Augmentin for her from [facility]. Otherwise I think it is reasonable to let her go home. If she is not improving over the next week or so she should be seen by primary doctor. Return any time for acute worsening symptoms or new neurologic changes. Vital Signs Vital signs: Initial Vital Signs Temperature 97.1 F L 06/24/24 17:27 Temperature Source Temporal Artery Scan 06/24/24 17:27 Pulse Rate 65 06/24/24 17:27 Respiratory Rate 16 06/24/24 17:27 Blood Pressure 146/86 H 06/24/24 17:27 Blood Pressure Mean 106 H 06/24/24 17:27 Blood Pressure Position Sitting 06/24/24 17:27 Pulse Oximetry 98 06/24/24 17:27 Oxygen Delivery Method Room Air 06/24/24 17:27 Vital Signs Temperature 97.1 F L 06/24/24 17:27 Pulse Rate 65 06/24/24 17:27 Respiratory Rate 16 06/24/24 17:27 Blood Pressure 146/86 H 06/24/24 17:27 Pulse Oximetry 98 06/24/24 17:27 Oxygen Delivery Method Room Air 06/24/24 17:27 Temperature 98.0 F 06/24/24 19:34 Pulse Rate 68 06/24/24 19:34 Respiratory Rate 16 06/24/24 19:34 Blood Pressure 132/78 06/24/24 19:34 Pulse Oximetry 98 06/24/24 19:34 Oxygen Delivery Method Room Air 06/24/24 19:34 Medications Administered Medications: Discontinued Medications Generic Name Dose Route Start Last Admin Trade Name Luis E PRN Reason Stop Dose Admin Diphenhydramine HCl 25 mg 06/24/24 17:49 06/24/24 18:26 Diphenhydramine 50 Mg/Ml Inj IVP 06/24/24 17:50 25 mg ONCE ONE Administration Sodium Chloride 500 mls @ 500 mls/hr 06/24/24 17:49 06/24/24 19:23 0.9 % Sodium Chloride 500 Ml IV 06/24/24 18:48 Infused .Q1H ONE Infusion Ketorolac Tromethamine 15 mg 06/24/24 17:49 06/24/24 18:27 Ketorolac 15 Mg/Ml Inj IVP 06/24/24 17:50 15 mg ONCE ONE Administration Ondansetron HCl 4 mg 06/24/24 17:49 06/24/24 18:26 Ondansetron 2 Mg/Ml Inj IVP 06/24/24 17:50 4 mg ONCE ONE Administration Medical Decision Making Lab Data Labs: Lab Results 06/24/24 06/24/24 06/24/24 Range/Units 18:21 18:21 18:21 WBC 5.79 (4.50-11.00) K/uL RBC 4.84 (4.00-5.20) m/uL Hgb 13.3 (12.0-16.0) gm/dL Hct 40.3 (33.0-51.0) % MCV 83 (80-100) fL MCH 28 (26-34) pg MCHC 33 (32-36) gm/dL RDW Coeff of Isidoro 12.5 (11.5-15.5) % Plt Count 238 (140-440) K/uL Neut % (Auto) 51.1 (42.0-72.0) % Lymph % (Auto) 34.9 (20-44) % [place] % (Auto) 8.6 (0.0-11.0) % Eos % (Auto) 4.3 (0.0-7.0) % Baso % (Auto) 0.9 (0.0-3.0) % Neut # (Auto) 2.96 (1.7-7.0) K/uL Lymph # (Auto) 2.02 (0.90-2.90) K/uL [place] # (Auto) 0.50 (0.00-0.90) K/UL Eos # (Auto) 0.25 (0.00-0.50) K/uL Baso # (Auto) 0.05 (0.00-0.30) K/uL Abs Immat Gran (auto) 0.01 (0.00-0.30) K/uL Imm/Tot Granulo (auto) 0.2 % ESR 11 (2-20) mm/hr D-Dimer Quant (PE/DVT) 0.22 (0.00-0.50) ug/ml Sodium 137 (135-149) mmol/L Potassium 3.9 (3.6-5.1) mmol/L Chloride 98 (96-114) mmol/L Carbon Dioxide 31 (20-32) mmol/L Anion Gap 8 (7-15) mEq/L BUN 15 (7-30) mg/dL Creatinine 0.7 (0.5-1.5) mg/dL Estimated Creat Clear 71.82 Estimated GFR 102 ml/min Glucose 90 (60-115) mg/dL Calcium 9.5 (8.4-10.6) mg/dL Total Bilirubin 0.5 Cancelled (0.1-1.5) mg/dL Direct Bilirubin 0.1 Cancelled (0.0-0.5) mg/dL AST 21 (12-35) U/L ALT (4-35) U/L Alkaline Phosphatase (40-150) U/L C-Reactive Protein (0.5-1.0) mg/dL Total Protein (6.0-8.3) g/dL Albumin (3.3-5.0) g/dL TSH (0.270-4.200) uIU/mL SARS-CoV-2 (PCR) (Negative) Influenza Type A (PCR) (Negative) Influenza Type B (PCR) (Negative) RSV (PCR) (Negative) 06/24/24 06/24/24 06/24/24 Range/Units 18:21 18:21 18:21 WBC (4.50-11.00) K/uL RBC (4.00-5.20) m/uL Hgb (12.0-16.0) gm/dL Hct (33.0-51.0) % MCV (80-100) fL MCH (26-34) pg MCHC (32-36) gm/dL RDW Coeff of Isidoro (11.5-15.5) % Plt Count (140-440) K/uL Neut % (Auto) (42.0-72.0) % Lymph % (Auto) (20-44) % [place] % (Auto) (0.0-11.0) % Eos % (Auto) (0.0-7.0) % Baso % (Auto) (0.0-3.0) % Neut # (Auto) (1.7-7.0) K/uL Lymph # (Auto) (0.90-2.90) K/uL [place] # (Auto) (0.00-0.90) K/UL Eos # (Auto) (0.00-0.50) K/uL Baso # (Auto) (0.00-0.30) K/uL Abs Immat Gran (auto) (0.00-0.30) K/uL Imm/Tot Granulo (auto) % ESR (2-20) mm/hr D-Dimer Quant (PE/DVT) (0.00-0.50) ug/ml Sodium (135-149) mmol/L Potassium (3.6-5.1) mmol/L Chloride (96-114) mmol/L Carbon Dioxide (20-32) mmol/L Anion Gap (7-15) mEq/L BUN (7-30) mg/dL Creatinine (0.5-1.5) mg/dL Estimated Creat Clear Estimated GFR ml/min Glucose (60-115) mg/dL Calcium (8.4-10.6) mg/dL Total Bilirubin (0.1-1.5) mg/dL Direct Bilirubin (0.0-0.5) mg/dL AST Cancelled (12-35) U/L ALT 14 Cancelled (4-35) U/L Alkaline Phosphatase 51 Cancelled (40-150) U/L C-Reactive Protein < 0.5 L (0.5-1.0) mg/dL Total Protein (6.0-8.3) g/dL Albumin (3.3-5.0) g/dL TSH (0.270-4.200) uIU/mL SARS-CoV-2 (PCR) (Negative) Influenza Type A (PCR) (Negative) Influenza Type B (PCR) (Negative) RSV (PCR) (Negative) 06/24/24 06/24/24 06/24/24 Range/Units 18:21 18:21 18:21 WBC (4.50-11.00) K/uL RBC (4.00-5.20) m/uL Hgb (12.0-16.0) gm/dL Hct (33.0-51.0) % MCV (80-100) fL MCH (26-34) pg MCHC (32-36) gm/dL RDW Coeff of Isidoro (11.5-15.5) % Plt Count (140-440) K/uL Neut % (Auto) (42.0-72.0) % Lymph % (Auto) (20-44) % [place] % (Auto) (0.0-11.0) % Eos % (Auto) (0.0-7.0) % Baso % (Auto) (0.0-3.0) % Neut # (Auto) (1.7-7.0) K/uL Lymph # (Auto) (0.90-2.90) K/uL [place] # (Auto) (0.00-0.90) K/UL Eos # (Auto) (0.00-0.50) K/uL Baso # (Auto) (0.00-0.30) K/uL Abs Immat Gran (auto) (0.00-0.30) K/uL Imm/Tot Granulo (auto) % ESR (2-20) mm/hr D-Dimer Quant (PE/DVT) (0.00-0.50) ug/ml Sodium (135-149) mmol/L Potassium (3.6-5.1) mmol/L Chloride (96-114) mmol/L Carbon Dioxide (20-32) mmol/L Anion Gap (7-15) mEq/L BUN (7-30) mg/dL Creatinine (0.5-1.5) mg/dL Estimated Creat Clear Estimated GFR ml/min Glucose (60-115) mg/dL Calcium (8.4-10.6) mg/dL Total Bilirubin (0.1-1.5) mg/dL Direct Bilirubin (0.0-0.5) mg/dL AST (12-35) U/L ALT (4-35) U/L Alkaline Phosphatase (40-150) U/L C-Reactive Protein Cancelled (0.5-1.0) mg/dL Total Protein 7.8 Cancelled (6.0-8.3) g/dL Albumin 4.7 Cancelled (3.3-5.0) g/dL TSH 2.330 (0.270-4.200) uIU/mL SARS-CoV-2 (PCR) Negative SARS-CoV-2 (Negative) Influenza Type A (PCR) Negative PCR FLU A (Negative) Influenza Type B (PCR) Negative PCR FLU B (Negative) RSV (PCR) Negative PCR RSV (Negative) Imaging Data Venous US: Radiologist's impression: Patient: Mamta Pickett MR#: [id number] : 1970 Acct:[id number] Loc: ED Service Date: 06/24/[address]: Ordering Physician: Aubree Moran M.D. Date of Service: 06/24/24 Procedure(s): US venous LE RT Accession Number(s): [id number] cc: Marcelina Soliman; Aubree Moran M.D.~ For Patients: As a result of the Cures Act, medical imaging exams and procedure reports are released immediately into your electronic medical record. You may view this report before your referring provider. If you have questions, please contact your health care provider. INDICATION: Calf pain. TECHNIQUE: Ultrasound venous duplex lower right extremity. Compression venous exam was performed using mccann-scale, color Doppler, and spectral Doppler analysis. COMPARISON: None. FINDINGS: Deep veins: Sonographic imaging demonstrates the right common femoral, deep femoral, superficial femoral, popliteal, posterior tibial and the contralateral left common femoral veins to be fully compressible with normal color Doppler blood flow. Superficial veins: Greater saphenous vein is fully compressible. IMPRESSION: Normal right lower extremity venous ultrasound, no sign of deep venous thrombosis. Dictated by Deep Valdivia MD @ 06/24/2024 6:55:[address] scan - head: Radiologist's impression: Patient: Mamta Pickett MR#: [id number] : 1970 Acct:[id number] Loc: ED Service Date: 06/24/[address]: Ordering Physician: Aubree Moran M.D. Date of Service: 06/24/24 Procedure(s): CT head/brain wo con Accession Number(s): [id number] cc: Marcelina Soliman; Aubree Moran M.D.~ For Patients: As a result of the Cures Act, medical imaging exams and procedure reports are released immediately into your electronic medical record. You may view this report before your referring provider. If you have questions, please contact your health care provider. INDICATION: Headaches. TECHNIQUE: CT of the head without contrast. Coronal and sagittal reformats are included. COMPARISON: None. FINDINGS: No CT evidence of acute cortical infarct. No loss of holcomb white matter differentiation. No hyperdense vessels to suggest intracranial thrombus. No acute intracranial hemorrhage. No mass effect or midline shift. No hydrocephalus or extra-axial collections. White matter is within normal limits for age. No acute osseous abnormalities. Widespread paranasal sinus mucosal thickening. Normal soft tissues. IMPRESSION: IMPRESSION:1. No CT evidence of acute cortical infarct. No acute intracranial hemorrhage. No other acute intracranial findings. Please note that all CT scans at this facility use dose modulation, iterative reconstruction, and/or weight-based dosing when appropriate to reduce radiation dose to as low as reasonably achievable. Dictated by Neal Zambrano MD @ 06/24/2024 7:03:33 PM Discharge Plan Discharge Clinical Impression: Headache, Right calf pain Patient Disposition: Home, Self-Care Condition: Improved Instructions: Acute Headache (ED), Leg Pain (ED) Additional Instructions: Antibiotic as prescribed for possible sinusitis. Ibuprofen and/or Tylenol as well as ice may be helpful for your calf. Please follow-up with primary care if these symptoms are not improving over the next few days to week. Return any time for acute worsening or new symptoms such as fever, chest pain, weakness etcetera. Prescriptions: No Action citalopram [Celexa] 40 mg tablet 40 mg PO DAILY levothyroxine semaglutide Follow Up/Referrals: Marcelina Soliman [Primary Care Provider] - Stand Alone Forms: [employer] Info Instructions
[2024-06-24] MEDS: 0.9 % SODIUM CHLORIDE 500 ML 500 ML IV (18:24)
[2024-06-24] MEDS: diphenhydrAMINE 50 MG/ML inj 25 MG IVP (18:26)
[2024-06-24] MEDS: ONDANSETRON 2 MG/ML inj 4 MG IVP (18:26)
[2024-06-24] MEDS: KETOROLAC 15 MG/ML inj IVP (18:27)
[2024-06-24 18:30] LABS: Basophils Absolute Auto 0.05 K/uL (0.00-0.30); Basophils Percent Auto 0.9 % (0.0-3.0); Eosinophils Absolute Auto 0.25 K/uL (0.00-0.50); Eosinophils Percent Auto 4.3 % (0.0-7.0); Hematocrit 40.3 % (33.0-51.0); Hemoglobin* 13.3 gm/dL (12.0-16.0); Immature Granulocytes Abs Auto 0.01 K/uL (0.00-0.30); Immature Granulocytes Pct Auto 0.2 %; Lymphocytes Absolute Auto 2.02 K/uL (0.90-2.90); Lymphocytes Percent Auto 34.9 % (20-44); Mean Corpuscular HGB Conc 33 gm/dL (32-36); Mean Corpuscular Hemoglobin 28 pg (26-34); Mean Corpuscular Volume 83 fL (80-100); Monocytes Percent Auto 8.6 % (0.0-11.0); Neutrophils Absolute Auto 2.96 K/uL (1.7-7.0); Neutrophils Percent Auto 51.1 % (42.0-72.0); Platelet Count* 238 K/uL (140-440); RDW Coefficient of Variation % 12.5 % (11.5-15.5); Red Blood Count 4.84 m/uL (4.00-5.20); White Blood Count* 5.79 K/uL (4.50-11.00)
[2024-06-24 18:37] LABS: Slide Review Reflex No
[2024-06-24 18:45] LABS: Albumin* 4.7 g/dL (3.3-5.0); Chloride* 98 mmol/L (96-114); Sodium* 137 mmol/L (135-149)
[2024-06-24 18:46] LABS: Potassium* 3.9 mmol/L (3.6-5.1)
[2024-06-24 18:47] LABS: Creatinine* 0.7 mg/dL (0.5-1.5); Est. Creatinine Clearance* 71.82; Estimated Glomerular Filt Rate 102 ml/min
[2024-06-24 18:48] LABS: Alanine Aminotransferase* 14 U/L (4-35); Alkaline Phosphatase* 51 U/L (40-150); Anion Gap 8 mEq/L (7-15); Aspartate Amino Transferase* 21 U/L (12-35); Bilirubin Direct* 0.1 mg/dL (0.0-0.5); Bilirubin Total* 0.5 mg/dL (0.1-1.5); Blood Urea Nitrogen* 15 mg/dL (7-30); Carbon Dioxide* 31 mmol/L (20-32); Glucose* 90 mg/dL (60-115); Total Protein* 7.8 g/dL (6.0-8.3)
[2024-06-24 18:49] LABS: Calcium* 9.5 mg/dL (8.4-10.6)
[2024-06-24 18:51] LABS: C Reactive Protein* < 0.5 mg/dL (0.5-1.0)
[2024-06-24 18:56] LABS: D Dimer Quantitative* 0.22 ug/ml (0.00-0.50)
[2024-06-24 19:03] VITALS: O2SAT 98
[2024-06-24 19:09] LABS: PCR FLU A Negative PCR FLU A (Negative); PCR FLU B Negative PCR FLU B (Negative); PCR RSV Negative PCR RSV (Negative); SARS PCR* Negative SARS-CoV-2 (Negative)
[2024-06-24 19:14] LABS: Erythrocyte SedimentationRate* 11 mm/hr (2-20)
[2024-06-24 19:33] VITALS: TEMP 36.7
[2024-06-24 19:34] VITALS: BP 132/78; PULSE 68; RESP 16; TEMP 36.7; O2SAT 98
== END 2024-06-24 19:35 | disposition home or self-care (01) ==
PROVIDERS: Emergency Provider Emergency Medicine
DX: M79.661 Pain in right lower leg (principal); R51.9 Headache, unspecified
CPT/HCPCS: 36415; 70450; 80048; 80076; 84443; 85025; 85379; 85651; 86140; 87631; 93971; 94761; 96374; 96375; 99284; J1200; J1885; J2405; J7030